=== PATIENT | female | born 1960 | race Caucasian/White ===

== ENCOUNTER 2016-11-06 11:49 | Inpatient (IN) | payer MEDICARE, OTHER ==
[2016-11-06] VITALS (13 sets, daily range): BP systolic 106–151; BP diastolic 75–131; PULSE 58–77; RESP 19–25; O2SAT 88–100
[~2016-11-06] VITALS: Ht 162.6 cm; Wt 83.3 kg
--- NOTE | 2016-11-06 11:57 | ED.REPORT ---
HPI-General Illness Date of Service Nov 06, 2016 ED Provider: Dr. Yost Pt is a 56 y/o female with unknown PMHx presenting to the ED via EMS due to respiratory arrest prior to arrival. The patient and her woke up sometime between 04:00-05:00 today and apparently had a hot flash. Her headed out to smoke and came back up to 5 hours later to find her unresponsive and apneic (the timeline is obtained from medics and drastically different stories may cause it to be inaccurate, another medic reported 10 minutes of downtime). She told her that she was complaining of back pain and may have taken some of her Percocet. They drank heavily last night. Medics noticed no signs of trauma. Upon medics arrival, she was found to be in PEA. CPR was initiated prior medics. She was intubated and treated with epi. After about 15min of CPR there was ROSC. During the intubation, they retrieved food material from the airway. On arrival in the ER, HR 90s, sinus with BP 170/100. Paralysed, intubated. Vital signs have remained stable. No further history is available. Only medical record available indicates a suicide attempt in 2008. Nursing Notes Stated Complaint: ROSC Nursing Notes Reviewed: Yes Scheduled PRN Clonazepam (Clonazepam) 1 Mg Tablet 1 MG PO TID PRN PRN For Anxiety or Agitation Temazepam (Temazepam) 30 Mg Cap 30 MG PO HS PRN PRN Insomnia General Time Seen by MD: 11:56 Chief Complaint Breathing problem Hx Obtained From: Spouse, EMS Unable to Obtain Hx: Patient condition Arrived By: Ambulance Past Medical History Past Medical History Notes: Only medical record indicates a suicide attempt in 2008. Unable to Obtain History Past medical history, Past surgical history, Family history, Smoking history, Social history, Occupation, Ambulatory status Review of Systems Unable to Obtain ROS Patient condition, Intubated Physical Exam Vital Signs Vital Signs Date Time Temp Pulse Resp B/P Pulse Ox O2 Delivery O2 Flow Rate FiO2 11/06/16 13:40 29.9 67 25 133/102 88 Mechanical Ventilator 50 11/06/16 13:09 100 11/06/16 13:05 29.7 69 22 151/91 99 Mechanical Ventilator 11/06/16 12:45 97 11/06/16 12:17 30.0 77 19 151/131 97 Mechanical Ventilator Initial VS: Reviewed, Vital signs abnormal Head / Eyes: Atraumatic, Normocephalic ENT: Mucous membranes moist, Conjunctiva normal, No scleral icterus Extremities: Vascular intact, Neuro intact, No swelling, No tenderness General: Intubated, sedated, and paralyzed No obvious trauma other than royal left by CPR Rectal temp of 30.0 C Neck: Atraumatic, Supple Respiratory / Chest: Breath sounds NL, Breath sounds = bilat, No rales, No rhonchi, No wheezing Abrasion mid-chest from CPR Cardiovascular: Heart rate NL, Regular rhythm, Heart sounds NL, No gallop, No murmurs, No rubs Abdomen: Atraumatic, Soft Bowel Sounds / Distention: Positive: Bowel sounds hypoactive Skin: Atraumatic Skin is cold and diaphoretic Cutting scars on right wrist. Appears to be a lap [place] scar NEURO: Intubated, sedated, and paralyzed Interpretation & Diagnostics Interpretation & Diagnostics: Urinalysis positive for cocaine, marijuana, benzodiazepine Elevated d-dimer likely represents sequelae of CPR prolonged down time hypothermia and possibility of developing DIC. Doubt pulmonary embolism as a source but this has not been definitively ruled out as the initial cause of her cardiac arrest Lab Results Interpretation Result Diagram: 11/06/16 1521 11/06/16 1521 Test 11/06/16 12:25 11/06/16 12:30 11/06/16 12:55 Urine Color Yellow (YELLOW) Urine Appearance Hazy (CLEAR,HAZY) Urine pH 5.5 (5.0-8.0) Urine Specific [place] 1.030 (1.003-1.035) Urine Protein 100mg/dL (NEG,TRACE) Urine Glucose (UA) Negativemg/dL (NEGATIVE) Urine Ketones Negativemg/dL (NEGATIVE) Urine Occult Blood Small (NEGATIVE) Urine Nitrite Negative (NEGATIVE) Urine Bilirubin Negative (NEGATIVE) Urine Urobilinogen Normalmg/dL (NORMAL) Urine Leukocyte Esterase Negative (NEGATIVE) Urine RBC 0-2/hpf (0-2) Urine WBC 0-5/hpf (0-5) Urine Epithelial Cells Occasional/hpf (NONE-MOD) Urine Crystals Amorphous urates (NONE Urine Bacteria Moderate/hpf (NONE-FEW) Urine Hyaline Casts Occasional/lpf (NONE) Urine Granular Casts Occasional (NONE SEEN) Urine Waxy Casts None seen (NONE SEEN) Urine Red Blood Cell Casts None seen (NONE SEEN) Urine White Blood Cell Casts None seen (NONE SEEN) Urine Mucus Present (None Seen) Urine Trichomonas None seen (NONE SEEN) Urine Yeast None (NONE SEEN) Urinalysis Comment None Urine Culture Reflexed Indicated Neutrophils (%) (Auto) 85.0% (40-74) Lymphocytes (%) (Auto) 11.9% (14-46) Monocytes (%) (Auto) 1.2% (4-12) Eosinophils (%) (Auto) 0.4% (0-5) Basophils (%) (Auto) 0.3% (0-3) Pro-B-Type Natriuretic Peptide 214.0pg/mL (0-287) Procalcitonin 0.06ng/mL (0.00-0.08) Salicylates Level < 3.0ug/mL (30-250) Acetaminophen Level < 15.0ug/mL Rx (10-25) Alcohols < 10mg/dL (0-10) Activated Partial Thromboplast Time 28.7sec (22.8-33.0) D-Dimer 56.4mg/L (<0.50) ECG Interpretation ECG Interpretation: Wide-complex atrial fibrillation rate 86 Peaked T waves - will treat for acute hyperkalemia No prior available for comparison Time: 12:39 Interpreted by: ED physician X-Ray Chest Interpretation Chest Xray Interpretation: IMPRESSION: 1. The endotracheal tube is 4 cm above millicent. 2. Mild pulmonary edema. Dictated by: Carolyn Medina M.D. on 11/06/2016 at 12:38 Approved by: Carolyn Medina M.D. on 11/06/2016 at 12:40 View: Portable, 1 view Interpretation / Wet Read by: Interpret - Radiologist Chest Xray Interpretation: IMPRESSION: Tubes and lines as described above. Dictated by: Faustina Panchal MD, PhD on 11/06/2016 at 13:50 Approved by: Faustina Panchal MD, PhD on 11/06/2016 at 13:52 View: Portable, 1 view Interpretation / Wet Read by: Interpret - Radiologist CT Head Interpretation IMPRESSION: 1. No acute intracranial abnormalities. Dictated by: Carolyn Medina M.D. on 11/06/2016 at 12:17 Approved by: Carolyn Medina M.D. on 11/06/2016 at 12:19 Study: Head CT no contrast Interpretation / Wet Read by: Interpret - Radiologist Procedures Central Line Placement Time: 13:06 Procedure Performed by: ED physician (gloved and immediately involved in the procedure), ED resident Consent / Setup / Site Prep: No consent - emergent, Time-out performed, Oxygen administered, Pulse oximeter applied, monitoring coordinator applied, Hand hygiene observed, Standard surgical scrub, Max barrier precaution, Sterile drapes applied, Position Trendelenburg Skin Preparation Agent: Shurclens Procedural Sedation/Analgesia: Sedation: Propofol Side / Location / Ultrasound: Internal jugular right, Ultrasound assisted Catheter / Lumen / Technique: Triple lumen, Seldinger technique, Good blood return, Secured w catheter device Central Line Tip Location: Cath tip good position in the SVC Post-Procedure / Complications: Antibiotic oint applied, Dressing placed, CXR neg for pneumothorax, Condition improved, Tolerated procedure well Re-Eval/Medical Decision Med Decision/Clinical Course Presents after PEA arrest with ROSC. Plans for cooling. Brain scan done on arrival in the ER with no obvious intracranial abnormalities or bleed. Patient was intubated, paralyzed on arrival. Details surrounding her evening and events are unclear. Hypothermia protocol is initiated labs are ordered she is found to be significantly acidotic her EKG shows widened QRS and peak T waves so she is treated for hyperkalemia. Subsequent potassium level is actually only 3.4. Chest x-ray does not show significant infiltrates at this point. She did have a small dose of Narcan with no response in the field. Tylenol aspirin and alcohol levels are all negative. Significantly elevated lactic acid presumably from prolonged down time rather than sepsis. Significant hypothermia with core temperature at 30C on arrival. Initial protocol was actually a warming protocol with to get her to 32. Hypothermia protocols including fluids and antibiotics are initiated. Central line is placed in the emergency department and patient is transferred to the intensive care unit for additional workup Time of Eval: 12:20 Re-Evaluation/Progress Note: Severe hypothermia protocol started. Time of Eval: 13:05 Re-Evaluation/Progress Note: Central line placed for improved access. Consultation : Referral / Consult Name: Osmany Schroeder MD Consulted With: Hospitalist Call Returned at: 13:36 Forest[employer] Extension Specialist: Will see patient, Agrees with eval, Agrees with plan, Accepts admit Note: Discussed case in person. Assisted in central line. Counseled Regarding: Diagnosis, Lab results, Need for admission Discharge & Departure Primary Impression: Cardiac arrest Additional Impressions: Respiratory failure Chronicity: acute Respiratory failure complication: hypoxia Qualified Code : J96.01 - Acute respiratory failure with hypoxia Hypothermia Encounter type: initial encounter Qualified Code: T68.XXXA - Hypothermia, initial encounter Aspiration into airway Encounter type: initial encounter Qualified Code: T17.908A - Unspecified foreign body in respiratory tract, part unspecified causing other injury, initial encounter Acidosis Disposition: ADMITTED TO HOSPITAL Discharge Condition All VS Reviewed: Yes Condition: Critical Crit Care Except Billable Proc Time Spent: 75-104 minutes Services Performed: Patient management by me, Time spent at bedside, Reviewing test results, Reviewing imaging, Discussing patient care, Documentation in record Scribe Attestation Portions of this note were transcribed by Chapincito Turner. I, Dr. Yost personally performed the history, physical exam and medical decision-making; I reviewed and confirmed the accuracy of the information in the transcribed note. Signed by Jay Tang, 11/06/16 - 1200 Elizabeth Yost MD Nov 06, 2016 11:56 CHAPINCITO TURNER Nov 06, 2016 12:01 Prothrombin Time 12.6sec (8.1-12.5) Prothromb Time International Ratio 1.17ratio Activated Partial Thromboplast Time 28.7sec (22.8-33.0) D-Dimer 56.4mg/L (<0.50) Lactic Acid Level 6.4mmol/L (0.4-2.0) ECG Interpretation ECG Interpretation: Wide-complex atrial fibrillation rate 86 Peaked T waves - will treat for acute hyperkalemia No prior available for comparison Time: 12:39 Interpreted by: ED physician X-Ray Chest Interpretation Chest Xray Interpretation: IMPRESSION: 1. The endotracheal tube is 4 cm above millicent. 2. Mild pulmonary edema. Dictated by: Carolyn Medina M.D. on 11/06/2016 at 12:38 Approved by: Carolyn Medina M.D. on 11/06/2016 at 12:40 View: Portable, 1 view Interpretation / Wet Read by: Interpret - Radiologist Chest Xray Interpretation: IMPRESSION: Tubes and lines as described above. Dictated by: Faustina Panchal MD, PhD on 11/06/2016 at 13:50 Approved by: Faustina Panchal MD, PhD on 11/06/2016 at 13:52 View: Portable, 1 view Interpretation / Wet Read by: Interpret - Radiologist CT Head Interpretation IMPRESSION: 1. No acute intracranial abnormalities. Dictated by: Carolyn Medina M.D. on 11/06/2016 at 12:17 Approved by: Carolyn Medina M.D. on 11/06/2016 at 12:19 Study: Head CT no contrast Interpretation / Wet Read by: Interpret - Radiologist Procedures Central Line Placement Time: 13:06 Procedure Performed by: ED physician (gloved and immediately involved in the procedure), ED resident Consent / Setup / Site Prep: No consent - emergent, Time-out performed, Oxygen administered, Pulse oximeter applied, monitoring coordinator applied, Hand hygiene observed, Standard surgical scrub, Max barrier precaution, Sterile drapes applied, Position Trendelenburg Skin Preparation Agent: Shurclens Procedural Sedation/Analgesia: Sedation: Propofol Side / Location / Ultrasound: Internal jugular right, Ultrasound assisted Catheter / Lumen / Technique: Triple lumen, Seldinger technique, Good blood return, Secured w catheter device Central Line Tip Location: Cath tip good position in the SVC Post-Procedure / Complications: Antibiotic oint applied, Dressing placed, CXR neg for pneumothorax, Condition improved, Tolerated procedure well Re-Eval/Medical Decision Time of Eval: 12:20 Re-Evaluation/Progress Note: Severe hypothermia protocol started. Time of Eval: 13:05 Re-Evaluation/Progress Note: Central line placed for improved access. Consultation : Referral / Consult Name: Osmany Schroeder MD Consulted With: Hospitalist Call Returned at: 13:36 Forest[employer] Specialist: Will see patient, Agrees with eval, Agrees with plan, Accepts admit Note: Discussed case in person. Assisted in central line. Counseled Regarding: Diagnosis, Lab results, Need for admission Discharge & Departure Primary Impression: Cardiac arrest Additional Impressions: Respiratory failure Chronicity: acute Respiratory failure complication: hypoxia Qualified Code : J96.01 - Acute respiratory failure with hypoxia Hypothermia Encounter type: initial encounter Qualified Code: T68.XXXA - Hypothermia, initial encounter Disposition: ADMITTED TO HOSPITAL Discharge Condition All VS Reviewed: Yes Condition: Critical Crit Care Except Billable Proc Time Spent: 75-104 minutes Services Performed: Patient management by me, Time spent at bedside, Reviewing test results, Reviewing imaging, Discussing patient care, Documentation in record Scribe Attestation Portions of this note were transcribed by Chapincito Turner. I, Dr. Yost personally performed the history, physical exam and medical decision-making; I reviewed and confirmed the accuracy of the information in the transcribed note. Signed by Jay Tang, 11/06/16 - 1200 Elizabeth Yost MD Nov 06, 2016 11:56 CHAPINCITO TURNER Nov 06, 2016 12:01
[2016-11-06] MEDS ORDERED: 0.9% Sodium Chloride 1,000 ML IV ONE ×3 (12:06→17:20)
[2016-11-06] MEDS ORDERED: Propofol Inj 1,000,000 MCG in IV Premix 1 EACH IV SCH (12:06)
[2016-11-06] MEDS ORDERED: fentaNYL-PF 50 mCg/mL 2 mL Inj IVPUSH ONE (12:10)
[2016-11-06] MEDS ORDERED: fentaNYL 2,500 mCg/250 mL 2,500 MCG in IV Premix 1 EACH IV SCH (12:10)
--- NOTE | 2016-11-06 12:21 | DRSVH ---
PROCEDURE: CT BRAIN WITHOUT CONTRAST ([id number]) INDICATIONS: patient found down TECHNIQUE: Noncontrast 4.5 mm thick angled axial sections acquired from the foramen magnum to the vertex, with c oronal reformats. COMPARISON: None. FINDINGS: Image quality: Excellent. CSF spaces: Basal cisterns are patent. No extra-axial fluid collections. Ventricles are normal in size and shape. Brain: No midline shift. No intracranial masses or hemorrhage. Castillo-white matter interface is norm al. Skull and face: Calvarium and visualized facial bones are intact, without suspicious lesions. Sinuses: Visualized sinuses and mastoids are clear. IMPRESSION: 1. No acute intracranial abnormalities. Dictated by: Carolyn Medina M.D. on 11/06/2016 at 12:17 Approved by: Carolyn Medina M.D. on 11/06/2016 at 12:19
[2016-11-06] MEDS ORDERED: Insulin Human REGular-Omnicell 100 Unit/mL IV ONE (12:40)
[2016-11-06] MEDS ORDERED: Calcium Chloride 10% (Gm) 1 Gm/10 mL Inj IVPUSH PRN (12:40)
--- NOTE | 2016-11-06 12:41 | DRSVH ---
PROCEDURE: X-RAY CHEST ONE VIEW, PORTABLE ([id number]) INDICATIONS: intubation TECHNIQUE: One view of the chest was acquired. COMPARISON: None. FINDINGS: Surgical changes and devices: The endotracheal tube is 4 cm above millicent. Lungs and pleura: Mild perihilar infiltrates suggest pulmonary edema, right greater than left. No pl eural effusions or pneumothorax. Mediastinum: Mediastinal contours appear normal. Heart size is normal. Bones and chest wall: No suspicious bony lesions. Overlying soft tissues appear unremarkable. Dist ended stomach. IMPRESSION: 1. The endotracheal tube is 4 cm above millicent. 2. Mild pulmonary edema. Dictated by: Carolyn Medina M.D. on 11/06/2016 at 12:38 Approved by: Carolyn Medina M.D. on 11/06/2016 at 12:40
[2016-11-06] MEDS ORDERED: Calcium Chl 10% 1 Gm/10 mL Syringe ONE (12:44)
[2016-11-06 12:55] LABS: BASOPHILS % (AUTO) 0.3 % (0-3); EOSINOPHILS % (AUTO) 0.4 % (0-5); MONOCYTES % (AUTO) 1.2 % (4-12); Mean Corpuscular Hemoglobin 29.8 pg (27.0-35.0); Mean Corpuscular Volume 92.7 fL (81-100); Platelet Count 158 bil/L (150-400)
--- NOTE | 2016-11-06 12:55 | ABG ---
DateTimeAnalyzed 12:51:00 -_ pH ____6.996 - 7.350 7.450 pCO2 ___62.4__ -mmHg 35.0 45.0 pO2 141 -mmHg 69.0 116 HCO3- ___14.5__ -mmol/L 22.0 26.0 ABE __-18.4__ -mmol/L -2.0 2.0 tHb ___14.8__ -g/dL O2Hb ___93.6__ -% COHb ____3.5__ -% MetHb ____0.9__ -% sO2 ___97.9__ -% FIO2 __100.0__ -% PEEP ____5.0__ -cmH2O Set_RR ___17.0__ -b/min Drawn By as - Date/Time Notified____ 12:55:00 -_ Spontaneous_RR ___17.0__ -b/min A/C __450.0__ - Oxygen Device 1 VENTILATOR - Notified By ams - Notified Whom dr laursen - B 752 -mmHg tO2 ___19.7__ -Vol% Soto test _Positive -
[2016-11-06 13:17] LABS: APPEARANCE,URINE HAZY (CLEAR,HAZY); COLOR,URINE YELLOW (YELLOW); OCCULT BLOOD,URINE SMALL (NEGATIVE); PH,URINE 5.5 (5.0-8.0); UROBILINOGEN,URINE NORMAL (NORMAL)
[2016-11-06 13:21] LABS: INR 1.17 ratio
[2016-11-06 13:32] LABS: TROPONIN T < 0.010 ug/L (0.0-0.011)
[2016-11-06] MEDS ORDERED: Piperacillin-Tazo 3.375 Gm Inj 3.375 GM in Dextrose 5% Minibag Plus 50 ML IV ONE (13:40)
[2016-11-06 13:41] LABS: Magnesium 3.1 mg/dL (1.6-2.6)
[2016-11-06 13:45] LABS: D-DIMER 56.4 mg/L (<0.50)
[2016-11-06 13:45] LABS: Creatine Kinase 105 U/L (21-215)
--- NOTE | 2016-11-06 13:53 | DRSVH ---
PROCEDURE: X-RAY CHEST ONE VIEW, PORTABLE ([id number]) INDICATIONS: LINE PLACEMENT TECHNIQUE: One view of the chest was acquired. COMPARISON: None. FINDINGS: Surgical changes and devices: Central venous catheter projects to the distal SVC the right IJ approac h. ET tube projects approximately 4 cm superior to millicent. NG tube tip crosses the GE junction. NG tu be side-port is in the distal esophagus. Cholecystectomy clips. Lungs and pleura: No pleural effusions or pneumothorax. Lungs are clear. Mediastinum: Mediastinal contours appear normal. Heart size is normal. Bones and chest wall: No suspicious bony lesions. Overlying soft tissues appear unremarkable. IMPRESSION: Tubes and lines as described above. Dictated by: Faustina Panchal MD, PhD on 11/06/2016 at 13:50 Approved by: Faustina Panchal MD, PhD on 11/06/2016 at 13:52
[2016-11-06] MEDS ORDERED: fentaNYL 2,500 mCg/250 mL 2,500 MCG in IV Premix 1 EACH IV PRN (13:55)
[2016-11-06] MEDS ORDERED: Polyethylene Glycol (PEG) 17 Gm Powder PO PRN (13:55)
[2016-11-06] MEDS ORDERED: Ondansetron 2 mg/mL 2 mL Inj IVPUSH PRN (13:55)
[2016-11-06] MEDS ORDERED: Senna-Docusate 8.6-50 mg Tablet PO PRN (13:55)
--- NOTE | 2016-11-06 14:02 | PCM.PROC ---
Procedure Note Date of Service: Nov 06, 2016 Pre Procedure Diagnosis: Hypothermia with acute hypoxemic respiratory failure Post Procedure Diagnosis: Hypothermia with acute hypoxemic respiratory failure Procedure: Central Venous Catheter (CVC, Central Line) Placement Date: 11/06/2016 Time: 13:15 Indication: Intravenous access Resident: Cassius Campuzano DO Attending: Dr. Priyank GARCIA The patient was placed in a Trendelenburg position appropriate for central line placement based on the vein to be cannulated. The patients right neck was prepped and draped in sterile fashion. Pt was intubated and sedated at time of procedure. A triple lumen 9-[place] Cordis catheter was introduced into the the internal jugular using the Seldinger technique and under ultrasound guidance. The needle tip was visualized in the lumen of the IJ. The catheter was threaded smoothly over the guide wire and appropriate blood return was obtained. The Lumen of the catheter was evacuated of air and flushed with sterile saline. The catheter was then secured in place to the skin and a sterile dressing applied. Attending and Resident was present for the entire procedure. Estimated Blood Loss: 50cc. The patient tolerated the procedure well and there were no complications. CASSIUS CAMPUZANO DO Nov 06, 2016 14:02
[2016-11-06] MEDS ORDERED: RES30 PO (14:20)
[2016-11-06] MEDS ORDERED: KLO1T PO (14:20)
[2016-11-06] MEDS ORDERED: levETIRAcetam Inj 1,500 MG in Dextrose 5% 100 ML IV ONE (14:45)
[2016-11-06 15:40] LABS: Mean Corpuscular Hemoglobin 29.5 pg (27.0-35.0); Mean Corpuscular Volume 90.8 fL (81-100)
--- NOTE | 2016-11-06 15:45 | ABG ---
DateTimeAnalyzed 15:41:00 -_ pH ____7.318 - 7.350 7.450 pCO2 ___24.3__ -mmHg 35.0 45.0 pO2 105 -mmHg 69.0 116 HCO3- ___12.1__ -mmol/L 22.0 26.0 ABE __-12.2__ -mmol/L -2.0 2.0 tHb ___14.1__ -g/dL O2Hb ___95.6__ -% COHb ____2.0__ -% MetHb ____0.9__ -% sO2 ___98.5__ -% FIO2 ___50.0__ -% PRVC 440 - PEEP ____5.0__ -cmH2O Set_RR ___25.0__ -b/min Drawn By jh - Date/Time Notified____ 15:45:00 -_ Spontaneous_RR ___25.0__ -b/min Oxygen Device 1 VENTILATOR - Notified By jh - Notified Whom ken - B 753 -mmHg tO2 ___19.1__ -Vol% Soto test N/A -
[2016-11-06 15:55] LABS: INR 1.12 ratio
[2016-11-06 16:00] LABS: Creatine Kinase 101 U/L (21-215); Magnesium 2.4 mg/dL (1.6-2.6)
[2016-11-06 16:01] LABS: TROPONIN T 0.024 ug/L (0.0-0.011)
[2016-11-06] MEDS ORDERED: Insulin Human REGular Inj 100 UNIT in 0.9% Sodium Chloride-Pha MIX 100 ML IV SCH ×2 (16:17→16:28)
--- NOTE | 2016-11-06 16:17 | PROCED ---
[address] [address] PROCEDURE NOTE PATIENT: MALGORZATA LOO : 1960 MR#: [id number] ADMIT: 11/06/2016 JOB ID: [id number] DATE OF SERVICE: POSTOPERATIVE DIAGNOSIS(ES): PREOPERATIVE DIAGNOSIS(ES): SURGEON: Yg Page MD PROCEDURE: Line placement. INDICATION FOR PROCEDURE: Hypothermic protocol status post cardiopulmonary arrest. PROCEDURE IN DETAIL: The patient is a 56-year-old female, currently under hypothermic protocol in the ICU. I was contacted by the ICU team for placement of arterial line. The patient's left forearm was prepped with ChloraPrep x2 and using sterile gloves, half mask and a sterile field, an ultrasound was used to visualize the left radial artery. The artery did not appear pulsatile, but anatomically was visualized. This is likely due to her hypothermic protocol. Using continuous ultrasound guidance, a 20-gauge angiocatheter was advanced and on initial contact with the artery did not provide a visible flush of blood. The catheter was advanced through the artery, needle was removed and then the catheter was slowly withdrawn until pulsatile blood was obtained. Wire was advanced through the catheter and then the catheter was advanced using the Seldinger technique into the artery with good withdrawal of pulsatile blood. The catheter was then sterilely dressed and secured by IV Therapy who was present during the procedure. Patient tolerated the procedure well without any notable complications.
[2016-11-06] MEDS ORDERED: 0.9% Sodium Chloride 1,000 ML IV SCH (16:25)
[2016-11-06] MEDS ORDERED: 0.9% Sodium Chloride 500 ML IV ONE ×2 (16:25)
[2016-11-06] MEDS ORDERED: Piperacillin-Tazo 3.375 Gm Inj 3.375 GM in Dextrose 5% Minibag Plus 50 ML IV SCH (16:30)
[2016-11-06] MEDS: Pantoprazole 4 mg/mL 10 mL Inj IVPUSH SCH (16:30)
--- NOTE | 2016-11-06 16:32 | CONS ---
[address] [address] CONSULTATION REPORT PATIENT: MALGORZATA LOO : 1960 MR#: [id number] ADMIT: 11/06/2016 JOB ID: [id number] DATE OF SERVICE: 11/06/2016 REQUESTING PHYSICIAN: Osmany Schroeder MD. REASON FOR CONSULTATION: Status post cardiac arrest. HISTORY OF PRESENT ILLNESS: The patient is a 56-year-old, female who was found by her with maybe agonal respirations in the garage this morning about 8 or 9 o'clock. He states he last saw her at about 4 o'clock in the morning. Says she told him she was unable to sleep and was going to the garage to smoke. He found her with gasping, slow respiratory rate at some time later that morning, maybe 8 or 9 o'clock. Called 911. He states he was told to do cardiac compressions in the meantime. Paramedics arrived. She was intubated, brought to the emergency department, found to be temperature of about 30 degrees. She had received brief CPR with the paramedics. The paramedics indicated she was apneic. Possibly 10 minutes of down time. On cutting table operator arrival, she was in PEA. Paramedics noted no signs of trauma. There was history of heavy drinking the night before. CPR lasted for about 15 minutes until reperfusion. Intubated, sedated, paralyzed en route. Given Narcan. Food material was seen in the airway. No other history available. states she suffers from back pain. Believes she may have taken a Percocet from a friend. PAST MEDICAL HISTORY: Past medical records indicate a suicide attempt in 2008. Unable to obtain any other history. REVIEW OF SYSTEMS: Unable to obtain. PHYSICAL EXAMINATION: Temperature upon arrival in the emergency department was 29.9 with a pulse of 67. She was on mechanical ventilation. Head was atraumatic. Normocephalic. No scleral icterus. Extremities: No tenderness. Chest showed good breath sounds bilaterally. Lung scott are clear. Heart rate regular rhythm. Abdomen is soft. Extremities were described as cold and mottled initially. Hesitation scars on both wrists. The patient was stabilized. Stat CT scan of the head showed no evidence of trauma. It was otherwise normal. Blood pressure was 151/130, pulse 77, temp was 30. She was therefore transported to the ICU. There, mechanical ventilation was employed. There was some generalized myoclonic activity. Some examiners thought she might have responded appropriately. However, it was felt that given the significant unknown down time and the probability of worsening cerebral edema, that hypothermic protocol be instituted with starting time being the documented temperature of 29 in the ED at 10:15. Pupils about 3 mm. Seemed reactive. Twitching of the jaw. There was also some twitching of her right hand and right foot. Became more generalized to involve her entire body. Chest was clear with good breath sounds bilaterally. Heart: Slightly irregular. Heart tones were normal. Abdomen is soft. Nondistended. Abdomen was quiet. Extremities: Unable to feel peripheral pulses. Hands and feet are cold. Mottling is less. Tox screen done in the emergency department showed a urinalysis positive for cocaine, marijuana, benzodiazepines. There was some question whether she received benzodiazepines from the paramedics though. A subsequently obtained drug list to which I am not privy indicated that she takes clonazepam. Also takes temazepam. No other apparent medications available that she takes. LABORATORY DATA: Shows a white count of 24,200 with a marked neutrophilia. No left shift. Hemoglobin 15.1. Platelet count 158,000. Sodium 142, potassium 3.4, chloride 103, CO2 is 12, BUN 32, creatinine 1.66, glucose 195, lactic acid was 6.4, calcium 8.6 with an albumin of 4.3. Phosphorus 11, magnesium 3.1. AST elevated at 1003. ALT elevated to 788. Alk phos normal at 137. Total CK is only 105. INR is 1.17. PTT is 28.7 seconds. Initial arterial blood gases showed a pO2 of 141 on FiO2 of 100%, PEEP of 5, respiratory rate 17 and a tidal volume of 450. CO2 was 62, pH was 699. Tox screen was negative for salicylates, acetaminophen and alcohol. DIAGNOSTIC STUDIES: Chest x-ray shows the central venous catheter in good position. Endotracheal tube was noted 4 cm above the main millicent and it was advanced 1 or 2 cm. NG tube across the GE junction. Lungs are clear. Mediastinal silhouette clear as is cardiac silhouette. CT of the brain shows no extra-axial fluid collections. Ventricles normal size and shape. No midline shift. No intracranial masses or hemorrhage. The calvarium and visualized facial bones intact. ASSESSMENT: 1. Cardiopulmonary arrest. 2. Probable aspiration as food particles were found in the airway. She has been intubated. Currently on mechanical ventilation. Because of the significant risk of hypoxemic or anoxic encephalopathy, will continue hypothermia protocol timing the onset at 10:15 a.m. 3. Apparent myoclonic activity. There is some discussion about whether this represents myoclonus, seizure disorder or shivering. Shivering should not be present at a temperature of 31. It is a generalized phenomenon involving the muscles of the jaw and face. Very concerned about myoclonic activity. Will get a stat EEG. In the meantime, she has been loaded with Keppra, given Ativan, and she will be sedated for continued hypothermia treatment. 4. Pulseless electrical activity (PEA) arrest. Down at least 10 minutes though this could be as long as 6 hours. CPR with return of was about 15 minutes. Severe metabolic and respiratory acidoses. She is being hyperventilated. I think we will restrict that to some extent as with normal lungs she should blow off the CO2 relatively rapidly. Do not want to come compromise any cerebral blood flow. 5. Aspiration pneumonitis. Cover with Zosyn. PLAN: 1. Mechanical ventilation. 2. IV Ativan and fentanyl for hypothermia protocol. 3. Stat EEG. 4. Vigileo monitoring. 5. IV Zosyn. 6. IV Keppra loading dose of 1500 mg IV with 1000 q.12. 7. Serial lytes and lactates as per hypothermia protocol. 8. Hypothermia protocol. TIME SPENT: Time spent so far is 2 hours and 43 minutes.
[2016-11-06] MEDS ORDERED: Sodium Chloride LOK Flush 10 mL Syringe IVFLUSH PRN ×2 (17:15)
[2016-11-06] MEDS ORDERED: KCl 40 mEq/100 mL Premix (K 3 - 3.7 & Creat < 2) IV ONE (17:20)
--- NOTE | 2016-11-06 17:34 | PCM.HPMED ---
Subjective Date of Service Nov 06, 2016 Primary Provider: Admitting Physician: Osmany Schroeder MD Primary Care Physician: Nopcp Attending Physician: Osmany Schroeder MD Chief Complaint: Respiratory arrest History of Present Illness: At the time of this H&P patient is intubated and sedated and cannot provide any history. History per the ED note by Dr. Yost: Pt is a 56 y/o female with unknown PMHx presenting to the ED via EMS due to respiratory arrest prior to arrival. The patient and her woke up sometime between 04:00-05:00 today and apparently had a hot flash. Her headed out to smoke and came back up to 5 hours later to find her unresponsive and apneic (the timeline is obtained from medics and drastically different stories may cause it to be inaccurate, another medic reported 10 minutes of downtime). She told her that she was complaining of back pain and may have taken some of her Percocet. They drank heavily last night. Medics noticed no signs of trauma. Upon medics arrival, she was exhibiting PEA. CPR was initiated prior to medics arrival and was sustained for about 15 minutes until reperfusion. She was then intubated, sedated, and paralyzed on route at about 11 :30 as well as given Narcan. During the intubation, they retrieved food material from the airway. Vital signs have remained stable. No further history is available. Only medical record available indicates a suicide attempt in 2008. Review of Systems: No review of systems could be obtained as patient is intubated and sedated in the ICU. Allergies Coded Allergies: No Known Allergies (Unverified , 11/08/16) Home Medications Per medication bottles: Atenolol 50 mg BID Clonazepam 1 mg TID prn anxiety PMH Anxiety Hypertension Surgical History Unknown as patient intubated and sedated and cannot answer Family History Unknown as patient intubated and sedated and cannot answer Social History Hx Alcohol Use: Yes Hx Substance Use: Yes Smoking Status: Current Every Day Smoker (Uncertain of the amount) Living Arrangement: with Family Exam Vital Signs Vital Sign - Last Date Time Temp Pulse Resp B/P Pulse Ox O2 Delivery O2 Flow Rate FiO2 11/06/16 14:45 87 113/88 98 50 11/06/16 13:40 29.9 25 Mechanical Ventilator Exam Patient intubated and sedated in the ICU; cooling pads in place on the thorax and lower extremities Pupils equal at 3 mm and unreactive to light; patient does blink after having her eyes opened ET tube in place and no oral thrush appreciated in the oral cavity; mucus membranes appear dry Neck supple without thyromegaly, no lymphadenopathy, no JVD appreciated; Right IJ in place Regular rate and rhythm without murmur Coarse breath sounds heard throughout the lung scott anteriorly Decreased bowel tones with nondistended abdomen, nontender, soft Radial pulses normal and equivalent bilaterally, dorsalis pedis pulses difficult to appreciate No clubbing or edema; left radial arterial line in place Sheth catheter in place No apparent wounds or skin ulcerations Neurological status could not be established as patient intubated and sedated Lab and Diagnostics Result Diagram: 11/06/16 1230 11/06/16 1230 X-Rays, CTs and MRIs PROCEDURE: X-RAY CHEST ONE VIEW, PORTABLE IMPRESSION: 1. The endotracheal tube is 4 cm above millicent. 2. Mild pulmonary edema. Dictated by: Carolyn Medina M.D. on 11/06/2016 at 12:38 PROCEDURE: CT BRAIN WITHOUT CONTRAST IMPRESSION: 1. No acute intracranial abnormalities. Dictated by: Carolyn Medina M.D. on 11/06/2016 at 12:17 Assessment & Plan Patient is a 56 year old female with a history of hypertension and anxiety who presented to [facility] in respiratory then cardiac arrest. She is admitted to the ICU for hypothermia protocol. 1. Cardiac arrest, acute, present on admission. - Likely secondary to respiratory failure but the exact events leading up to this are unknown. - Hypothermia protocol initiated in the ED at 1015 on 11/06/16. - Follow labs (CBC, CMP, CK-MB) as indicated by hypothermia protocol. - Electrolyte repletion as indicated by hypothermia protocol. - IV fluids as indicated by hypothermia protocol. - Nimbex available as needed to prevent shivering and accelerated warming. - Vigileo available for cardiac monitoring. - Non-DKA insulin drip ordered to go along with hypothermia protocol. 2. Acute hypoxic respiratory failure, present on admission. - Patient requiring mechanical ventilation. - Fentanyl and propofol for sedation. Titrate as needed to maintain adequate comfort during hypothermia protocol. - Dr. Norris of pulmonology has been consulted for ventilator management. - ABG PRN for vent adjustments. 3. Presume acute aspiration pneumonia, present on admission. - Food particles found when patient intubated. - Zosyn started in ED and will continue at this time. - Nasal MRSA screen ordered and pending. 4. Possible seizure activity, acute, present on admission. - Possibly secondary to anoxic brain injury. - EEG ordered and pending. - Lorazepam drip initiated. - Keppra loading dose given. 5. Possible stunned myocardium, acute, present on admission. - Secondary to cardiac arrest and resuscitation efforts. - Echo ordered and pending for further evaluation. - Dobutamine drip to be started for inotropic support. 6. Possible lower GI bleed, acute, present on admission. - Patient passed guaiac positive stool with tint of blood in CCU. - Consider ischemic colitis secondary to hypoperfusion. - Will hold DVT prophylaxis at this time. - Protonix 40 mg IV BID. 7. Elevated transaminases, acute, present on admission. - Possibly secondary to shock liver related to hypoperfusion. May be a component of congestive hepatopathy secondary to stunned myocardium. - Continue to monitor CMP. 8. Acute kidney injury, present on admission. - Presume normal baseline. - Likely secondary to fluid depletion and possibly also hypoperfusion. - IV hydration ongoing per hypothermia protocol. - Continue to monitor BMP. 9. Alcohol dependence, chronic. - Reported significant alcohol use yesterday, 11/05/16. Alcohol level negative in ED. Presumed chronic alcohol use. - Lorazepam drip initiated. - Monitoring for withdrawal will be difficult as patient undergoing hypothermia protocol. 10. Anxiety with benzodiazepine dependence, chronic. - Home medication clonazepam 1 mg TID PRN. - Lorazepam drip initiated for management of seizure-like activity. 11. Polysubstance abuse, presume chronic. - Cocaine and marijuana positive urine tox. - Frequency of use unknown. 12. Hypertension, chronic, presume stable. - Home medication includes atenolol 50 mg BID. - Patient currently more hypotensive. Will hold home medication. - Antiemetic available PRN. - Bowel regimen available PRN. Patient admitted under inpatient status with expected length of stay greater than 2 midnights for severity of present symptoms, complexities of treatment plan and risk for adverse events. PCP Nadja Danielle MD GI Prophylaxis: Proton Pump Inhibitor VTE Prophylaxis: Sub-Q Enoxaparin, SCDs Resuscitation Status: CPR: Attempt Resuscitation Time spent Approximately 45 minutes of direct critical care time was provided for initial care and stabilization of this patient. . Attending Statement The patient was seen and examined together with Dr. Del Cid on 11/06/2016 and I agree with the history, exam and plan as outlined in the note above. . copies to: Nadja Danielle MD, Jennifer E DO Nov 06, 2016 15:40 Osmany Schroeder MD Nov 09, 2016 19:04
[2016-11-06] MEDS: LORazepam 100 mg/100 mL NS 100 MG in IV Premix 100 EACH IV SCH (17:36)
[2016-11-06] MEDS: Chlorhexidine 0.12% 15 mL Oral Solution MT SCH ×2 (17:36→19:47)
[2016-11-06] MEDS ORDERED: Cisatracurium Inj 200,000 MCG in 0.9% Sodium Chloride-Pha MIX 100 ML IV SCH (18:21)
[2016-11-06] MEDS ORDERED: 0.9% Sodium Chloride (Chilled) 1,000 ML ONE (18:25)
--- NOTE | 2016-11-06 19:12 | NUR ---
Admit: Pt admitted after being found down for unknown length of time at home. Hypothermia protocol started in ED, at 1320 temp 29.7, pt below goal from time cooling pads placed per report. Arctic Sun machine set to slowly warm pt to temp of 33.0, pt above goal since 1630. Passive cooling measures in effect, ice packs/fan/no blankets, and ineffective. Cooled LR hung per Dr Schroeder at 1815, temp currently 35.1. Pt has been intermittently awake and following commands, Ativan IV push given for possible seizure activity, Ativan gtt ordered but not hung per MD orders. EEG obtained and then Ativan hung after EEG completed. Pt started shivering, Nimbex ordered, unable to adequately sedate pt with Ativan, Propofol hung at change of shift, Nimbex hung immediately after. at bedside, updated on plan of care. Vigileo monitor in place, L art line, R triple lumen IJ line. Fentanyl, Ativan, and Propofol for sedation. Q2h turn, heels floated, care ongoing.
--- NOTE | 2016-11-06 19:15 | DRSVH ---
[facility] [address] [place] [address] Echocardiogram Report Name: MALGORZATA LOO Date: 11/06/2016 Height: 64 in Hospital Exam Location: [facility] Gender: Female : 1960 Age: 56 yrs BP: 113/79 mmHg Reason For Study: PEA ARREST History: ETOH, smoker Ordering Physician: [facility]PITAL[facility] Performed By: Rylee Quick Interpretation Summary Normal sinus rhythm. Wide QRS complexes. Normal LV size; mild concentric LVH. There is mid-anterior, distal anterior hypokinesis and evidence of septal dyssynchrony. Otherwise normal wall motion where seen. EF is 40-45%. Normal diastolic dysfunction. Normal chamber sizes. Mitral valve leaflets are normal. There is trace mitral regurgitation. Tricuspid valve leaflets are normal; there is mild-moderate associated TR. Estimated PASP is 26 mm Hg assuming RA pressure of 5 mm Hg. No prior study available for comparison. Procedure: A two-dimensional transthoracic echocardiogram with color flow and Doppler was performed. The study quality was technically adequate. There is no prior echocardiogram noted for this patient. The patient is intubated during exam. The patient was in normal sinus rhythm during the exam. Wide QRS Complexes. Left Ventricle: Left ventricular wall thickness is mildly increased. The left ventricular cavity is small. The ejection fraction is estimated to be 40 -45%. Assessment of diastolic parameters indicates normal left ventricular diastolic function and normal filling pressures. Right Ventricle: The right ventricle is normal size. Right ventricular systolic function is mildly reduced. Atria: Both atria are normal in size. There is no Doppler evidence for an interatrial shunt. Mitral Valve: The mitral valve is normal in structure and function. There is mild mitral regurgitation. Aortic Valve: The aortic valve is normal in structure and function. No aortic regurgitation is present. Tricuspid Valve: There is mild to moderate tricuspid regurgitation. Right ventricular systolic pressure is estimated to be 22 mmHg plus the clinically estimated CVP which cannot be estimated on this exam. Pulmonic Valve: The pulmonic valve is not well seen, but is grossly normal. There is a trace or physiologic amount of pulmonic regurgitation. Great Vessels: The aortic root is normal size. The ascending aorta is at the upper limits of normal in size. The IVC has a measurement of 20 mm. Inspiratory collapse cannot be assessed because of mechanical ventilation, thus CVP cannot be estimated.. Pericardium/ Pleura There is no pericardial effusion. There is a trivial right-sided pleural effusion. MMode/2D Measurements & Calculations LVIDd: 3.9 cm LA A2 area: 15.8 cm RA long axis LVOT diam: 2.1 cm LVIDs: 3.0 cm Ao root diam FS: 22.1 % LA A4 area: 23.3 cm RA area: 17.6 cm EPSS: 0.43 cm LA length (vol) RA vol: 48.9 ml asc Aorta Diam IVSd: 1.3 cm LVPWd: 1.2 cm LA vol: 57.0 ml IVC diam: 2.0 cm RVD1 (basal) TAPSE: 1.5 cm Doppler Measurements & Calculations Ao V2 max MV E max angel MV E/A: 1.1 TR max angel : 104.7 cm/sec : 48.7 cm/sec Med Peak E' Angel : 235.4 cm/sec Ao max PG MV A max angel TR max PG : 4.4 mmHg : 43.0 cm/sec E/E' med: 7.1 : 22.2 mmHg Ao mean PG MV P1/2t: 52.5 msec MV A dur: 0.11 sec PA V2 max : 56.1 cm/sec LVOT Max Angel PA mean PG : 84.2 cm/sec : 0.64 mmHg RITA(I,D): 3.6 cm PA Accel Time sev ratio: 1.0 : 0.14 sec MV dec time MV P1/2t max angel Ao V2 mean LV V1 max PG : 0.18 sec : 70.1 cm/sec MVA(P1/2t): 4.2 cm2 Ao V2 VTI: 16.6 cm LV V1 VTI: 17.3 cm RITA(V,D): 2.8 cm2 PA V2 mean : 37.6 cm/sec Reading Physician:07:15 PM
[2016-11-06] MEDS: Piperacillin-Tazo 3.375 Gm Inj 3.375 GM in Dextrose 5% Minibag Plus 50 ML IV SCH (19:46)
[2016-11-06] MEDS: Cisatracurium 200,000 mCg/100 mL NS IV SCH ×2 (19:47)
[2016-11-06] MEDS: Propofol Inj 1,000,000 MCG in IV Premix 1 EACH IV PRN (19:47)
[2016-11-06] MEDS ORDERED: Famotidine Inj 20 MG in IV Premix 1 EACH IV SCH (20:30)
--- NOTE | 2016-11-06 21:36 | ABG ---
DateTimeAnalyzed 21:28:35 -_ pH ____7.341 - pCO2 ___21.8__ -mmHg pO2 162 -mmHg HCO3- ___11.8__ -mmol/L ABE __-12.5__ -mmol/L tHb ___13.8__ -g/dL O2Hb ___98.7__ -% COHb ____0.7__ -% MetHb ____0.3__ -% sO2 ___99.7__ -% FIO2 ___50.0__ -% PRVC 400 - PEEP ____5.0__ -cmH2O Set_RR 25 -b/min Drawn By RB - Date/Time Notified____ 21:35:00 -_ Spontaneous_RR 23 -b/min Oxygen Device 1 VENTILATOR - Notified By RB - B 756 -mmHg K+ ____4.0__ -mmol/L tO2 ___19.5__ -Vol% Soto test N/A -
--- NOTE | 2016-11-06 21:43 | PROCED ---
[address] [address] EEG PATIENT: MALGORZATA LOO : 1960 MR#: [id number] ADMIT: 11/06/2016 JOB ID: [id number] DATE: 11/06/2016 HISTORY: The patient is a 56-year-old woman with a history of respiratory arrest noted to have intermittent body shivering and quivering. TECHNICAL DESCRIPTION: This digital EEG was recorded using 25 scalp and ear, and two EKG electrodes. It was reviewed in bipolar and referential montages following reformatting in the 10-[employer]de [employer] System. During the recording, the patient was noted to be lethargic. This electroencephalogram was limited by abundant myogenic and movement artifact almost constant at times, however, brief epics were visualized of background activity which was approximately 8.5 hertz, 20-50 microvolts and was noted to be at least partially responsive to eye opening bilaterally. The rest of the background was composed of low voltage fast frequencies. There were no seizures seen. There were no focal, lateralized, or epileptiform discharges noted. It should be noted though that this is a limited study due to abundant nearly continuous myogenic and movement artifact. The study was performed off sedation. Hyperventilation was not performed. Photic stimulation from 1-30 hertz did not elicit any photic driving response. During a brief portion of this recording, symmetrical appearing sleep spindles were noted suggestive of stage 2 of sleep. Due to the abundant myogenic and movement artifact, vertex waves heralding stage 1 of sleep were not noted. The EKG rhythm strip revealed a heart rate of 60 to 80 beats per minute with what appeared to be a wide QRS complex. If clinically indicated, a 12-lead EKG may be helpful. Review of this electroencephalogram reveals no evidence of focal, lateralized, or epileptiform discharges. No seizures were seen. IMPRESSION: This EEG performed in the lethargic state is abnormal. It is limited by abundant myogenic and movement artifact and the single lead electrocardiogram demonstrating what appears to be a wide QRS complex is abnormal. If clinically indicated, recommend obtaining a 12-lead electrocardiogram. Clinical correlation is advised. [facility]
[2016-11-06 21:44] LABS: Mean Corpuscular Volume 88.7 fL (81-100)
[2016-11-06 22:06] LABS: INR 1.12 ratio
[2016-11-06 22:21] LABS: Creatine Kinase 97 U/L (21-215); Magnesium 1.8 mg/dL (1.6-2.6)
[2016-11-06 22:25] LABS: TROPONIN T 0.052 ug/L (0.0-0.011)
[2016-11-06] MEDS ORDERED: Sodium Bicarb 8.4% Inj 150 MEQ in Dextrose 5% 1,000 ML IV PRN (23:45)
[2016-11-06] MEDS: Dextrose 5% 0.45% NaCl 1,000 ML IV SCH (23:46)
[2016-11-07] VITALS (10 sets, daily range): BP systolic 76–124; BP diastolic 50–65; PULSE 48–111; RESP 22–23; O2SAT 95–100
[2016-11-07] MEDS: Chlorhexidine 0.12% 15 mL Oral Solution MT SCH ×6 (00:28→20:46)
[2016-11-07] MEDS: Propofol Inj 1,000,000 MCG in IV Premix 1 EACH IV PRN ×2 (00:32→17:50)
--- NOTE | 2016-11-07 03:36 | ABG ---
DateTimeAnalyzed 03:31:36 -_ pH ____7.327 - pCO2 ___24.4__ -mmHg pO2 102 -mmHg HCO3- ___12.8__ -mmol/L ABE __-12.0__ -mmol/L tHb ___11.9__ -g/dL O2Hb ___97.6__ -% COHb ____0.6__ -% MetHb ____0.3__ -% sO2 ___98.5__ -% FIO2 ___35.0__ -% PRVC 400 - PEEP ____5.0__ -cmH2O Set_RR 25 -b/min Drawn By RB - Date/Time Notified____ 03:36:00 -_ Spontaneous_RR 23 -b/min Oxygen Device 1 VENTILATOR - Notified By RB - Notified Whom ROB R, RN - B 757 -mmHg K+ ____3.1__ -mmol/L tO2 ___16.5__ -Vol% Soto test N/A -
[2016-11-07 03:46] LABS: Mean Corpuscular Hemoglobin 29.7 pg (27.0-35.0); Mean Corpuscular Volume 88.3 fL (81-100)
[2016-11-07 04:05] LABS: INR 1.16 ratio
[2016-11-07] MEDS: Norepinephrine 8,000 mCg/250 mL D5W Premix IV SCH ×2 (04:28→08:17)
[2016-11-07 04:47] LABS: Magnesium 1.5 mg/dL (1.6-2.6)
[2016-11-07 04:48] LABS: TROPONIN T 0.03 ug/L (0.0-0.011)
[2016-11-07] MEDS: DOBUTamine 500 mg/250 D5W 500,000 MCG in IV Premix 1 EACH IV SCH ×2 (05:10→18:43)
[2016-11-07] MEDS ORDERED: Sodium Bicarb (50 mEq) 8.4% 1 mEq/mL 50 mL Syringe IVPUSH ONE (05:45)
[2016-11-07] MEDS ORDERED: Mag Sulf 4 Gm/100 mL IV Premix (Mag < 1.6 & Creat < 2) IV ONE (05:50)
[2016-11-07] MEDS ORDERED: KCl 40 mEq/100 mL Premix (K 3 - 3.7 & Creat < 2) IV ONE (05:50)
[2016-11-07] MEDS ORDERED: levETIRAcetam Inj 1,000 MG in IV Premix 1 EACH IV ONE (06:15)
--- NOTE | 2016-11-07 07:47 | NUR ---
Hypothermia protocol/Seizure like activity Pt remains on hypothermia throughout night. Incontinent of liquid stool x 2. FMS placed. Hypotensive. Orders from MD to start Dobutamine gtt, and bicarb gtt for abnormal ABGs. Dextrose source ordered to replace NS as maintenance fluid as pt CBG 60s-130s. Thermostat saucedo output only 700. Potassium and MG replaced per protocol. MD notified of low Ca, and deferred to day shift to replace. LA came back elevated. MD ordered q2h checks with no intervention at this time. ~0430 BIS monitor showed >90s despite increase sedation of Ativan, Propofol, and Fentanyl. Pt temp was 32.0 which is below shivering level. Call to MD who ordered dose of Keppra which was given IV. Next shift notified of above. Care ongoing
[2016-11-07] MEDS ORDERED: Calcium GLUCO 10% (Gm) Inj 1 GM in Dextrose 5% 100 ML IV ONE (08:05)
[2016-11-07] MEDS ORDERED: Albumin 25% 50 GM in IV Premix 1 EACH IV ONE (08:10)
[2016-11-07] MEDS: Pantoprazole 4 mg/mL 10 mL Inj IVPUSH SCH ×2 (08:24→15:49)
[2016-11-07] MEDS: Piperacillin-Tazo 3.375 Gm Inj 3.375 GM in Dextrose 5% Minibag Plus 50 ML IV SCH ×2 (08:30→20:46)
[2016-11-07] MEDS: Heparin 25K Unit/500mL 0.45 NS 25,000 UNIT in IV Premix 1 EACH IV SCH (08:51)
[2016-11-07] MEDS: Lactated Ringer's 1,000 ML IV SCH ×2 (09:21→10:38)
[2016-11-07] MEDS: Cisatracurium 200,000 mCg/100 mL NS IV SCH ×4 (09:29→19:10)
[2016-11-07] MEDS ORDERED: levETIRAcetam Inj 1,000 MG in IV Premix 1 EACH IV SCH (09:52)
[2016-11-07 09:55] LABS: Mean Corpuscular Hemoglobin 29.8 pg (27.0-35.0); Mean Corpuscular Volume 89.1 fL (81-100)
[2016-11-07 10:16] LABS: INR 1.25 ratio
[2016-11-07 10:32] LABS: TROPONIN T 0.023 ug/L (0.0-0.011)
[2016-11-07] MEDS: Dextrose 5% 0.45% NaCl 1,000 ML IV SCH (10:36)
[2016-11-07 10:46] LABS: Magnesium 2.8 mg/dL (1.6-2.6)
[2016-11-07] MEDS ORDERED: Sodium Phosphate Inj 20 MEQ in Dextrose 5% 250 ML IV ONE (10:55)
--- NOTE | 2016-11-07 11:14 | NUR ---
NUTRITION ASSESSMENT: ASSESS:56 YO female presented to the ED via EMS due to respiratory arrest prior to arrival, intubated in the field after being found down for an unknown period of time, likely several hours, exhibiting PEA. Hypothermia protocol in effect; rewarming began at 1000. She is receiving fluids and pressor support. Nimbex available as needed to prevent shivering and accelerated warming. Apparently particles of food were found during intubation; aspiration pneumonia likely. Seizure activity appears to be occurring; EEG abnormal. Other issues include possible stunned myocardium, possible lower GI bleed, possible shock liver, polysubstance abuse, anxiety with benzo dependence. PMHx:Anxiety, HTN, polysubstance abuse. DIET:NPO. LABS: Chloride 113, CO2 16, Glu 146, Lactic Acid 3.4, Ca 6.7, Mg 2.8, AST 265, ALT 326, Alb 2.8. MEDICATIONS: Dobutamine, norepi, keppra, ativan, insulin, fentanyl. Propofol rate currently 13.5 ml / hr, providing 356 lipid kcal. NUTRITION FOCUSED PHYSICAL ASSESSMENT: GI symptoms / stool: Incontinent of stool; FMS placed.Luis Alfredo: None documented. Skin Integrity: No issues as yet documented. ANTHROPOMETRICS: Current Wt: 75.0 kgBMI: 28.0 kg/m2. IBW: 54.5 kg (137.5% IBW) ESTIMATED NEEDS (VENT): Calories: 1500 - 1875 kcal (20 - 25 kcal / kg BW) Protein: 113 - 135 g protein (1.5 - 1.8 g / kg BW) Fluid: Approx. 2250 mL (30 mL / kg BW) NUTRITION DIAGNOSIS: 1) Inadequate oral intake related to inability to consume sufficient energy, as evidenced by NPO / vent status. INTERVENTION: 1) Once rewarming completed, recommend initiate enteral feeding. Recommend Jevity 1.5 at 10 ml/hr x 12 hr. Once tolerance established, recommend advance 5 ml every 4 hr. to goal rate 45 ml/hr, which would provide 1485 kcal (1841 kcal with propofol), 63 g protein. Will add 5 packets ProSource per day to meet 100% protein requirements. 2) Unsigned orders in chart for MD authorization. MONITOR/EVALUATE: NPO / vent status, orders for nutrition support, labs, GI/nutrition status. Follow up per high nutrition risk guidelines.
[2016-11-07] MEDS ORDERED: LEVETIRACETAM IV ONE (11:35)
[2016-11-07] MEDS ORDERED: SODIUM CHLORIDE 0.9% IV ONE (11:35)
[2016-11-07] MEDS: NACL IV SCH ×2 (11:38→18:17)
[2016-11-07] MEDS: SODIUM BICARB IV SCH ×2 (11:38→18:17)
[2016-11-07] MEDS: DEXTROSE IV SCH ×2 (11:38→18:17)
--- NOTE | 2016-11-07 13:44 | DRSVH ---
PROCEDURE: X-RAY CHEST ONE VIEW, PORTABLE ([id number]) INDICATIONS: acute respiratory failure TECHNIQUE: One view of the chest was acquired. COMPARISON: [facility], CR, XR CHEST 1VW (PORTABLE), 11/06/2016, 13:24. FINDINGS: Surgical changes and devices: Stable position of ETT, nasogastric tube and right IJ CVL Lungs and pleura: Interval increase in diffuse, widespread bilateral interstitial and airspace opacit ies involving the right hilum and left lung base. Mediastinum: Mediastinal contours appear normal. Heart size is normal. Bones and chest wall: No suspicious bony lesions. Overlying soft tissues appear unremarkable. IMPRESSION: Worsening pulmonary edema and/or diffuse bilateral pneumonia. Dictated by: Kei Glynn RRA Interpreted: Faustina Panchal MD on 11/07/2016 at 13:43 Transcribed by: GUILHERME on 11/07/2016 at 13:43 Approved by: Faustina Panchal MD, PhD on 11/07/2016 at 16:53
[2016-11-07 15:24] LABS: Mean Corpuscular Hemoglobin 29.8 pg (27.0-35.0)
[2016-11-07 15:25] LABS: TROPONIN T 0.024 ug/L (0.0-0.011)
[2016-11-07 15:37] LABS: Magnesium 2.3 mg/dL (1.6-2.6)
[2016-11-07] MEDS: LORazepam 100 mg/100 mL NS 100 MG in IV Premix 100 EACH IV SCH (15:46)
--- NOTE | 2016-11-07 16:47 | NUR ---
Social Work: Screen D: Per EMR review, pt is a 56 year old female admitted for post cardiac arrest. Pt insurance listed as other commercial. PCP is not listed. NOK is pt's friend Kamila Shelton. Advanced directives not on file- pt currently unresponsive and not appropriate for info. Readmit score is moderate, 3/8. Pt resides in [place] with family. She has a history of polysubstance abuse including ETOH, JULISSA, THC and BZO. Pt was brought to ED after being found unresponsive, for an unknown period of time. Pt is currently vented and sedated with hypothermia protocol in place- rewarming started at 1000. A: Pt who was previously I P: Evolving; HAND ROLLER ENGRAVER to follow pt's clinical course closely to determine discharge needs. HAND ROLLER ENGRAVER to follow up with pt re: CD assessment when pt is appropriate. JOSE Morales
--- NOTE | 2016-11-07 18:10 | PCM.PNMED ---
Subjective Date of Service Nov 07, 2016 Subjective overnight: Patient remained on cooling protocol overnight with no acute events otherwise noted Today: Rewarming began at 10 AM. Patient initially rewarmed to quickly, this was adjusted and corrected for. Cardiac index continually monitored patient was fluid responsive. Patient remains on potassium and mag repletion protocol in addition to cooling. Exam Vital Signs Vital Sign - Last Date Time Temp Pulse Resp B/P Pulse Ox O2 Delivery O2 Flow Rate FiO2 11/07/16 00:35 52 78/56 100 35 11/07/16 00:35 Ventilator 11/07/16 00:35 32.7 23 Intake and Output 11/06/16 11/06/16 11/07/16 Cumulative From/Thru 15:00 23:00 07:00 11/06/16 12:31 - 11/06/16 19:12 Intake Total 2153 ml 2153 ml Output Total 80 ml 800 ml 880 ml Balance -80 ml 1353 ml 1273 ml Intake IV Total 2153 ml 2153 ml Output Urine Total 80 ml 800 ml 880 ml # Bowel Movements 1 1 Exam Gen.: Patient intubated and sedated in the ICU; cooling pads in place on the thorax and lower extremities Eyes: Pupils equal at 2 mm and sluggish to light, anicteric sclera noninjected conjunctiva HENT: ET tube in place and no oral thrush appreciated in the oral cavity; mucus membranes appear dry Neck: supple without thyromegaly, no lymphadenopathy, no JVD appreciated; Right IJ in place Cardiovascular: Regular rate and rhythm without murmur Lungs: Mild to moderate Coarse breath sounds heard throughout the lung scott anteriorly no wheezing noted Abdomen: Decreased bowel tones with nondistended abdomen, soft, no organomegaly noted tympanic to percussion Extremities: Radial pulses and dorsalis pedis pulses thready and weak but equal bilaterally No clubbing or edema; left radial arterial line in place : Sheth catheter in place Skin: Arctic sun wrap in place, No apparent wounds or skin ulcerations Neuro: could not be established as patient intubated and sedated Psych: Unable to obtain Lab and Diagnostics Result Diagram: 11/07/1632911/07/16329 X-Rays, CTs and MRIs PROCEDURE: X-RAY CHEST ONE VIEW, PORTABLE IMPRESSION: 1. The endotracheal tube is 4 cm above millicent. 2. Mild pulmonary edema. Dictated by: Carolyn Medina M.D. on 11/06/2016 at 12:38 PROCEDURE: CT BRAIN WITHOUT CONTRAST IMPRESSION: 1. No acute intracranial abnormalities. Dictated by: Carolyn Medina M.D. on 11/06/2016 at 12:17 Cardiac Echo Impressions Echocardiogram Report Interpretation Summary Normal sinus rhythm. Wide QRS complexes. Normal LV size; mild concentric LVH. There is mid-anterior, distal anterior hypokinesis and evidence of septal dyssynchrony. Otherwise normal wall motion where seen. EF is 40-45%. Normal diastolic dysfunction. Normal chamber sizes. Mitral valve leaflets are normal. There is trace mitral regurgitation. Tricuspid valve leaflets are normal; there is mild-moderate associated TR. Estimated PASP is 26 mm Hg assuming RA pressure of 5 mm Hg. No prior study available for comparison. Reading Physician:07:15 PM Additional Diagnostics EEG IMPRESSION: This EEG performed in the lethargic state is abnormal. It is limited by abundant myogenic and movement artifact and the single lead electrocardiogram demonstrating what appears to be a wide QRS complex is abnormal. If clinically indicated, recommend obtaining a 12-lead electrocardiogram. Review of this electroencephalogram reveals no evidence of focal, lateralized, or epileptiform discharges. No seizures were seen. Clinical correlation is advised. Joseph Rivera MD 11/06/162051 Assessment & Plan Patient is a 56 year old female with a history of hypertension and anxiety who presented to [facility]ED in respiratory then cardiac arrest. She is admitted to the ICU for hypothermia protocol. Hospital day 2 1. Cardiac arrest, acute, present on admission. - Likely secondary to respiratory failure but the exact events leading up to this are unknown. - Hypothermia protocol initiated in the ED at 1015 on 11/06/16. - Follow labs (CBC, CMP, CK-MB) as indicated by hypothermia protocol. - Electrolyte repletion as indicated by hypothermia protocol. - IV fluids as indicated by hypothermia protocol. - Nimbex available as needed to prevent shivering and accelerated warming. - Vigileo available for cardiac monitoring. - Non-DKA insulin drip ordered to go along with hypothermia protocol. - Patient rewarming initiated at 10 AM 11/07/2016 2. Acute hypoxic respiratory failure, present on admission. - Patient requiring mechanical ventilation. - Fentanyl and propofol for sedation. Titrate as needed to maintain adequate comfort during hypothermia protocol. - Dr. Norris of pulmonology has been consulted for ventilator management. - ABG PRN for vent adjustments. 3. Presume acute aspiration pneumonia, present on admission. - Food particles found when patient intubated. - Zosyn started in ED and will continue at this time. - Nasal MRSA screen ordered and pending. 4. Possible seizure activity, acute, present on admission. - Possibly secondary to anoxic brain injury. - EEG ordered and pending. - Lorazepam drip initiated. - Keppra loading dose given. 5. Possible stunned myocardium, acute, present on admission. - Secondary to cardiac arrest and resuscitation efforts. - Echo ordered shows EF of 40-45% with diastolic dysfunction and mid to distal anterior wall motion abnormality with septal asynchrony - Dobutamine drip to be started for inotropic support. 6. Possible lower GI bleed, acute, present on admission. - Patient passed guaiac positive stool with tint of blood in CCU. - Consider ischemic colitis secondary to hypoperfusion. - Will hold DVT prophylaxis at this time. - Protonix 40 mg IV BID. 7. Elevated transaminases, acute, present on admission. - Possibly secondary to shock liver related to hypoperfusion. May be a component of congestive hepatopathy secondary to stunned myocardium. - Continue to monitor CMP. 8. Acute kidney injury, present on admission. - Presume normal baseline. - Likely secondary to fluid depletion and possibly also hypoperfusion. - IV hydration ongoing per hypothermia protocol. - Continue to monitor BMP. 9. Alcohol dependence, chronic. - Reported significant alcohol use yesterday, 11/05/16. Alcohol level negative in ED. Presumed chronic alcohol use. - Lorazepam drip initiated. - Monitoring for withdrawal will be difficult as patient undergoing hypothermia protocol. 10. Anxiety with benzodiazepine dependence, chronic. - Home medication clonazepam 1 mg TID PRN. - Lorazepam drip initiated for management of seizure-like activity. 11. Polysubstance abuse, presume chronic. - Cocaine and marijuana positive urine tox. - Frequency of use unknown. 12. Hypertension, chronic, presume stable. - Home medication includes atenolol 50 mg BID. - Patient currently more hypotensive. Will hold home medication. - Antiemetic available PRN. - Bowel regimen available PRN. Disposition: Patient to remain in ventilated in ICU for a significant period of time given current diagnoses and likelihood of complications. GI Prophylaxis: Proton Pump Inhibitor VTE Prophylaxis: Sub-Q Enoxaparin, SCDs Resuscitation Status: CPR: Attempt Resuscitation Attending Statement The patient was seen and examined together with Dr. Diaz on 11/07/2016 and I agree with the history, exam and plan as outlined in the note above. . Adalid Diaz DO Nov 07, 2016 06:52 Osmany Schroeder MD Nov 09, 2016 19:07
--- NOTE | 2016-11-07 18:23 | NUR ---
Hemodynamics/neuro/rewarming/ Rewarming in process. Core temperature currently 34.4. No shivering noted at this time. BIS 60s. Free of s/s of seizure activity. Ativan and propofol gtt continued. Keppra and vimpat as scheduled. Occasionally opens eyes and withdrawals to painful stimuli. Levophed infusing at 0.1mcg/kg/min and dobutamine continued at 8mcg/kg/min. Maintaining MAP 75 to 80. CVP 12. SR/ST per supervisor coremaker. Sp02 >92% on 35% fi02 and peep of 5. Riding set ventilator rate, no overbreathing observed. Will continue to monitor.
[2016-11-07] MEDS: levETIRAcetam Inj 1,500 MG in 0.9% Sodium Chloride 100 ML IV SCH (20:46)
[2016-11-07 21:02] LABS: Magnesium 2.1 mg/dL (1.6-2.6)
[2016-11-08] VITALS (13 sets, daily range): BP systolic 92–125; BP diastolic 53–70; PULSE 66–106; RESP 14–23; O2SAT 94–98
[2016-11-08] MEDS: Propofol Inj 1,000,000 MCG in IV Premix 1 EACH IV PRN ×5 (00:09→21:57)
[2016-11-08] MEDS: Chlorhexidine 0.12% 15 mL Oral Solution MT SCH ×6 (00:09→19:52)
[2016-11-08] MEDS: NACL IV SCH (00:30)
[2016-11-08] MEDS: DEXTROSE IV SCH (00:30)
[2016-11-08] MEDS: SODIUM BICARB IV SCH (00:30)
[2016-11-08] MEDS: Norepinephrine 8,000 mCg/250 mL D5W Premix IV SCH ×2 (02:36→17:49)
--- NOTE | 2016-11-08 04:39 | NUR ---
Elida Call from [facility] at [facility] 10/03 (Phone number [phone]). Pt son is in [place] deployed on ship, and family called Elida to bring son Kelvin in to see his mom. Reference number [id number]. Informed Nancie that pt is in critical condition (stable for now) undergoing targeted temperature management for unknown cardiac arrest. Potential for complications are great and pt prognosis unknown. Elida will start process to bring Kelvin in from ship. It could take up to 72 hours. They can be reached at any time.
--- NOTE | 2016-11-08 04:43 | NUR ---
Hypothermia/Labs Pt rewarmed to 36.0 degrees C at 0200. Maintained above 36 degrees without complications. Lactic acid increasing throughout shift and continue to recheck q2h. MD aware of values. Pt remains on gtts and currently stable. Will continue to monitor. Care ongoing
--- NOTE | 2016-11-08 05:43 | ABG ---
DateTimeAnalyzed 05:40:00 -_ pH ____7.434 - 7.350 7.450 pCO2 ___35.1__ -mmHg 35.0 45.0 pO2 ___71.8__ -mmHg 69.0 116 HCO3- ___23.1__ -mmol/L 22.0 26.0 ABE ___-0.3__ -mmol/L -2.0 2.0 tHb ___10.0__ -g/dL O2Hb ___94.6__ -% COHb ____0.8__ -% MetHb ____1.2__ -% sO2 ___96.5__ -% FIO2 ___35.0__ -% PRVC 400 - PEEP ____5.0__ -cmH2O Set_RR ___15.0__ -b/min Drawn By RB - Spontaneous_RR ___22.0__ -b/min Oxygen Device 1 VENTILATOR - Notified Whom ROB R, RN - B 751 -mmHg tO2 ___13.4__ -Vol% Soto test N/A -
[2016-11-08 05:56] LABS: BASOPHILS % (AUTO) 0.2 % (0-3); EOSINOPHILS % (AUTO) 1.3 % (0-5); MONOCYTES % (AUTO) 3.8 % (4-12); Mean Corpuscular Hemoglobin 29.6 pg (27.0-35.0); Mean Corpuscular Volume 88.2 fL (81-100); NEUTROPHILS % (AUTO) 78.3 % (40-74); Platelet Count 142 bil/L (150-400)
--- NOTE | 2016-11-08 06:06 | NUR ---
Neuro During bed bath, pt got extremely agitated. Would open eyes and shake head, but these movements were not on command or purposeful. Pt would also try and sit up like she was getting out of bed. IV meds given to help calm pt down as she was not able to be oriented. Will continue to monitor. Care ongoing
[2016-11-08 06:28] LABS: ERYTHROCYTE SEDIMENTATION RATE 9 mm/hr (0-40)
[2016-11-08 06:45] LABS: Magnesium 1.9 mg/dL (1.6-2.6); Phosphorus 1.9 mg/dL (2.5-4.9)
[2016-11-08] MEDS: Pantoprazole 4 mg/mL 10 mL Inj IVPUSH SCH ×2 (07:30→15:49)
[2016-11-08] MEDS: DOBUTamine 500 mg/250 D5W 500,000 MCG in IV Premix 1 EACH IV SCH (07:48)
[2016-11-08] MEDS: Heparin 25K Unit/500mL 0.45 NS 25,000 UNIT in IV Premix 1 EACH IV SCH (07:50)
[2016-11-08] MEDS: KCl 40 mEq/100 mL IV Premix (K < 3 & Creat <2) IV SCH ×2 (08:00→14:18)
[2016-11-08] MEDS ORDERED: Potassium Phos (mEq) Inj 40 MEQ in Dextrose 5% 500 ML IV ONE (08:10)
[2016-11-08] MEDS: Piperacillin-Tazo 3.375 Gm Inj 3.375 GM in Dextrose 5% Minibag Plus 50 ML IV SCH ×2 (08:30→19:52)
[2016-11-08] MEDS: levETIRAcetam Inj 1,500 MG in 0.9% Sodium Chloride 100 ML IV SCH ×2 (08:30→19:53)
--- NOTE | 2016-11-08 09:37 | DRSVH ---
PROCEDURE: X-RAY CHEST ONE VIEW, PORTABLE ([id number]) INDICATIONS: acute respiratory failure TECHNIQUE: One view of the chest was acquired. COMPARISON: [facility], CR, XR CHEST 1VW (PORTABLE), 11/07/2016, 9:49. FINDINGS: Surgical changes and devices: Stable position of ETT, nasogastric tube and right IJ CVL Lungs and pleura: No significant change in diffuse, widespread bilateral interstitial and airspace op acities involving the right hilum and left lung base. No pneumothorax. Mediastinum: Mediastinal contours appear normal. Heart size is normal. Bones and chest wall: No suspicious bony lesions. Overlying soft tissues appear unremarkable. IMPRESSION: Persistent pulmonary edema and/or diffuse bilateral pneumonia. Dictated by: Kei Glynn RRA Interpreted: Faustina Panchal MD on 11/08/2016 at 9:36 Transcribed by: GUILHERME on 11/08/2016 at 9:36 Approved by: Faustina Panchal MD, PhD on 11/08/2016 at 17:05
--- NOTE | 2016-11-08 10:41 | DRSVH ---
PROCEDURE: X-RAY CHEST ONE VIEW, PORTABLE ([id number]) INDICATIONS: sob, repeat cxr with inspiration TECHNIQUE: One view of the chest was acquired. COMPARISON: [facility], CR, XR CHEST 1VW (PORTABLE), 11/07/2016, 9:49. [facility], CR, XR CHEST 1VW (PORTABLE), 11/08/2016, 3:24. FINDINGS: Surgical changes and devices: Stable position of ETT, nasogastric tube and right IJ CVL Lungs and pleura: No significant change in diffuse, widespread bilateral interstitial and airspace op acities involving the mid lungs and lung bases. No pneumothorax. Trace pleural effusions. Mediastinum: Mediastinal contours appear normal. Heart size is normal. Bones and chest wall: No suspicious bony lesions. Overlying soft tissues appear unremarkable. IMPRESSION: No significant change in edema and/or bilateral inflammatory process. Dictated by: Kei Glynn RRA Interpreted: Faustina Panchal MD on 11/08/2016 at 10:39 Transcribed by: GUILHERME on 11/08/2016 at 10:41 Approved by: Faustina Panchal MD, PhD on 11/08/2016 at 17:08
--- NOTE | 2016-11-08 10:44 | PCM.PNMED ---
Subjective Date of Service Nov 08, 2016 Subjective Intensive Care/Pulmonology Consultation Note: Attending Dr. Alek Curry is a 56-year-old female with a past medical history significant for hypertension and anxiety who presented to [facility] Emergency Department after being found down, unresponsive, and severely hypothermic at 29.9C. She was subsequently found by EMS to be in PEA cardiac arrest thought to be secondary to cocaine-induced WI and was resuscitated and intubated in the field. She was admitted to the ICU for hypothermia protocol. Hospital day #3. Overnight: There were no acute events. Telemetry overnight was sinus rhythm, heart rate 90 to 110's, V-tach x 4 beats at 0320. Subjective exam and review of systems unobtainable as the patient is intubated and sedated. . Exam Vital Signs Vital Sign - Last Date Time Temp Pulse Resp B/P Pulse Ox O2 Delivery O2 Flow Rate FiO2 11/08/16 09:51 100 20 115/70 97 40 11/08/16 04:35 36.7 Mechanical Ventilator Intake and Output 11/07/16 11/07/16 11/08/16 Cumulative From/Thru 15:00 23:00 07:00 11/06/16 12:31 - 11/08/16 06:04 Intake Total 5217 ml 5644 ml 3171 ml 43957 ml Output Total 1300 ml 2405 ml 1675 ml 6260 ml Balance 3917 ml 3239 ml 1496 ml 9925 ml Intake IV Total 5217 ml 5644 ml 3171 ml 07619 ml Output Urine Total 700 ml 2255 ml 1500 ml 5335 ml Stool Total 200 ml 25 ml 225 ml Gastric Drainage Total 400 ml 150 ml 150 ml 700 ml # Bowel Movements 1 2 Exam General: Middle-aged female lying in bed and in no acute distress, intubated and sedated. Acute distress, well-developed, well-nourished, appropriately interactive HEENT: Normocephalic, atraumatic. External ears without defect. Pupils equal, round, and reactive to light. Anicteric sclerae and moist conjunctivae. Endotracheal nasopharyngeal tube in place. Neck: No lymphadenopathy or thyromegaly. Cardiovascular: Regular rate and rhythm with no murmurs, rubs, or gallops appreciated Pulmonary: Bronchial breath sounds in anterior lung scott. Normal respiratory effort with no use of accessory muscles. Abdomen: Soft, nontender, nondistended, bowel sounds present. No hepatosplenomegaly or masses appreciated. Extremities: SCD's in place. No clubbing, cyanosis, or edema. Skin: Normal temperature, turgor, and texture; no rash, ulcers, or subcutaneous nodules appreciated. Neurological: Cranial nerves grossly intact. Normal muscle strength, tone, and bulk. Reflexes, coordination, and sensory function within normal limits. No known gait impairment. Psychiatric: Normal mood and affect. Alert and oriented to person, place, and time. Ventilator settings: PRVC. Tidal volume 400. Respiratory rate 23. FiO2 35 %. PEEP 5.0. Peak 25. Plateau 20. ABG: PH 7.434. PCO2 35.1. PO2 71.8. HCO3 23.1. On PRVC with FiO2 35 %, PEEP 5.0, and SPO2 of 86.5%. IV drips and Sedatives: Fentanyl 100 g/hr, propofol 40 g/kg/min, lorazepam 4 mg/hr. Norepinephrine 0.125 g/kg/min and dobutamine 0.8 g/kg/min. IV lines: Left radial arterial line and right IJ. I&O: Net +9925 mL. . IVs and Medications Medications Reviewed: Medications were reviewed in detail Lab and Diagnostics Item Value Date Time Procalcitonin 0.06 ng/mL 11/06/16 1230 Procalcitonin 2.70 ng/mL H 11/08/16 0540 Item Value Date Time Lactic Acid Level 3.6 mmol/L H 11/08/16 0540 Lactic Acid Level 2.9 mmol/L H 11/08/16 0949 Item Value Date Time Calcium Level 7.2 mg/dL L 11/08/16 0540 Phosphorus Level 1.9 mg/dL L 11/08/16 0540 Magnesium Level 1.9 mg/dL 11/08/16 0540 Total Bilirubin 0.3 mg/dL 11/08/16 0540 Aspartate Amino Transf (AST/SGOT) 124 U/L H 11/08/16 0540 Alanine Aminotransferase (ALT/SGPT) 237 U/L H 11/08/16 0540 Alkaline Phosphatase 61 U/L 11/08/16 0540 C-Reactive Protein 8.7 mg/dL H 11/08/16 0540 Pro-B-Type Natriuretic Peptide 434.0 pg/mL H 11/08/16 0540 Total Protein 4.6 g/dL L 11/08/16 0540 Albumin 2.9 g/dL L 11/08/16 0540 Result Diagram: 11/08/16 0540 11/08/16 0540 Microbiology Urine culture has no growth to date. Sputum culture growing scant normal alexis. Blood culture 2 has no growth after 24 hours. MRSA screen negative. Stool occult blood positive. . X-Rays, CTs and MRIs X-RAY CHEST ONE VIEW, PORTABLE IMPRESSION: No significant change in edema and/or bilateral inflammatory process. Dictated by: Kei Glynn RRAura Interpreted: Faustina Panchal MD on 11/08/2016 at 10:39 X-RAY CHEST ONE VIEW, PORTABLE IMPRESSION: 1. The endotracheal tube is 4 cm above millicent. 2. Mild pulmonary edema. Dictated by: Carolyn Medina M.D. on 11/06/2016 at 12:38 CT BRAIN WITHOUT CONTRAST IMPRESSION: 1. No acute intracranial abnormalities. Dictated by: Carolyn Medina M.D. on 11/06/2016 at 12:17 . Cardiac Echo Impressions Echocardiogram Interpretation Summary: Normal sinus rhythm. Wide QRS complexes. Normal LV size; mild concentric LVH. There is mid-anterior, distal anterior hypokinesis and evidence of septal dyssynchrony. Otherwise normal wall motion where seen. EF is 40-45%. Normal diastolic dysfunction. Normal chamber sizes. Mitral valve leaflets are normal. There is trace mitral regurgitation. Tricuspid valve leaflets are normal; there is mild-moderate associated TR. Estimated PASP is 26 mm Hg assuming RA pressure of 5 mm Hg. No prior study available for comparison. Reading Physician:07:15 PM . Additional Diagnostics EEG IMPRESSION: This EEG performed in the lethargic state is abnormal. It is limited by abundant myogenic and movement artifact and the single lead electrocardiogram demonstrating what appears to be a wide QRS complex is abnormal. If clinically indicated, recommend obtaining a 12-lead electrocardiogram. Review of this electroencephalogram reveals no evidence of focal, lateralized, or epileptiform discharges. No seizures were seen. Clinical correlation is advised. Joseph Rivera MD 11/06/162051 . Assessment & Plan Kassy Curry is a 56-year-old female with a past medical history significant for hypertension and anxiety who presented to [facility] Emergency Department after being found down, unresponsive, and severely hypothermic at 29.9C. She was subsequently found by EMS to be in PEA cardiac arrest thought to be secondary to cocaine-induced WI and was resuscitated and intubated in the field. She was admitted to the ICU for hypothermia protocol. Hospital day #3. 1. Acute PEA cardiac arrest, present on admission. Resolved. - Presumed to be secondary to WI from possibly cocaine-induced versus less likely CAD versus respiratory arrest. - The patient was resuscitated in the field after 15 minutes of CPR. - Nimbex started briefly for 2 hours early in hypothermia protocol. - Continue Vigileo and telemetry for cardiac monitoring. - Non-DKA insulin drip ordered to go along with hypothermia protocol. - Hypothermia protocol initiated in the ED at 10:15 on 11/06/16 and completed today 11/08/16. 2. Acute cardiogenic shock, present on admission. Active. - Presumed to be secondary to WI from possibly cocaine-induced versus less likely CAD versus respiratory arrest. - Troponin initially negative likely due to hypoperfusion from arrest and hypothermia. - Continue dobutamine and titrate down as tolerated. - Continue cardiac heparin gtt. - Continue electrolyte repletion as needed. Keep potassium greater than 4.0 and magnesium greater than 2.0. - Echocardiogram revealed an EF of 40-45% and mid-anterior, distal anterior hypokinesis and evidence of septal dyssynchrony, as above. - Consulted cardiology, Dr. Alford, who will see the patient. We appreciate her recommendations and care of the patient. 3. Acute hypoxemic respiratory failure, present on admission. Active. - Patient requiring mechanical ventilation. - Continue fentanyl, propofol, and lorazepam for sedation as above and titrate down as tolerated. - Continue ventilator settings as above. - Monitor ABG daily for vent management. - CXR demonstrates as above. 4. Presumed acute aspiration pneumonia, present on admission. Active. - Food particles found when patient was intubated. - Continue Zosyn for aspiration and broad spectrum coverage. MRSA screen negative. - Procalcitonin was initially negative likely due to hypoperfusion from arrest and hypothermia. Now elevated at 2.70, as above. - Sputum culture growing scant normal alexis, as above. - Blood culture 2 has no growth after 24 hours, as above. 5. Possible seizure activity, acute, present on admission. Resolved. - Possibly secondary to anoxic brain injury. - EEG ordered and did not reveal any epileptiform, focal, or lateralized discharges. - Continue propofol and lorazepam gtt and titrate down and off as tolerated. - Continue Keppra and Vimpat. 6. Possible acute lower GI bleed, present on admission. Resolved. - Patient passed guaiac positive stool with tint of blood in CCU. - Consider ischemic colitis secondary to hypoperfusion. - Protonix 40 mg IV BID. 7. Elevated transaminases, acute, present on admission. - Possibly secondary to shock liver related to hypoperfusion. May be a component of congestive hepatopathy secondary to stunned myocardium. - Continue to monitor CMP. 8. Acute kidney injury, present on admission. Resolving. - Presume normal baseline renal function. - Likely secondary to fluid depletion and possibly also hypoperfusion. - Continue IV fluids. - Avoid nephrotoxic agents. - Continue to monitor renal function and urine output daily. 9. Alcohol dependence, chronic. - Reported significant alcohol use yesterday, 11/05/16. Alcohol level negative in ED. Presumed chronic alcohol use. - Lorazepam drip initiated. - Monitoring for withdrawal will be difficult as patient undergoing hypothermia protocol. 10. Anxiety with benzodiazepine dependence, chronic. - Home medication clonazepam 1 mg TID PRN. - Lorazepam drip initiated for management of seizure-like activity. 11. Polysubstance abuse, presumed chronic. - Cocaine and marijuana positive on UDS. - Frequency of use unknown. 12. Hypertension, chronic, presume stable. - Home medication includes atenolol 50 mg BID. - Patient currently more hypotensive. Will hold home medication. - Antiemetic available PRN. - Bowel regimen available PRN. Disposition: Patient to remain in ventilated in ICU for a significant period of time given current diagnoses and likelihood of complications. . GI Prophylaxis: Proton Pump Inhibitor VTE Prophylaxis: Sub-Q Enoxaparin, SCDs Resuscitation Status: CPR: Attempt Resuscitation Attending Statement I have seen and examined this patient with the resident physician. Vital signs , labs, imaging have been reviewed. I agree with the assessment and plan above. Please refer to my separately dictated progress note for any modifications to above. Jada Gaston M.D. Pulmonary and Critical Care medicine Pager [phone] Kendy Parnell DO Nov 08, 2016 10:44 Jada Gaston MD Nov 08, 2016 16:05
--- NOTE | 2016-11-08 11:53 | NUR ---
NUTRITION FOLLOW-UP: ASSESS:56 YO female presented to the ED via EMS due to respiratory arrest prior to arrival, intubated in the field after being found down for an unknown period of time, likely several hours, exhibiting PEA. Hypothermia protocol completed. She is receiving fluids and pressor support. Apparently particles of food were found during intubation; aspiration pneumonia likely. Seizure activity noted; EEG abnormal. Other issues include possible stunned myocardium, possible lower GI bleed, possible shock liver, polysubstance abuse, anxiety with benzo dependence. Authorization received to initiate enteral feeding today. PMHx:Anxiety, HTN, polysubstance abuse. DIET:NPO. LABS: Na 145, K+ 2.9, Chloride 111, Cr 1.04, Glu 152, Lactic Acid 2.9, Ca 7.2, Phos 1.9, AST 124, ALT 237, Alb 2.9, Procalcitonin 2.70. MEDICATIONS: Dobutamine, keppra, fentanyl. Propofol rate currently 9.0 ml / hr, providing 238 lipid kcal. NUTRITION FOCUSED PHYSICAL ASSESSMENT: GI symptoms / stool: BM x 1 (11/07).Luis Alfredo: 9. Skin Integrity: No issues as yet documented. ANTHROPOMETRICS: Current Wt: 98.6 kg, BMI 37.0 kg/m2. Admit weight: 75.0 kg, BMI: 28.0 kg/m2. IBW: 54.5 kg (137.5% IBW) ESTIMATED NEEDS (VENT): Calories: 1500 - 1875 kcal (20 - 25 kcal / kg BW) Protein: 113 - 135 g protein (1.5 - 1.8 g / kg BW) Fluid: Approx. 2250 mL (30 mL / kg BW) NUTRITION DIAGNOSIS: 1) Inadequate oral intake related to inability to consume sufficient energy, as evidenced by NPO / vent status. INTERVENTION: 1) Enteral feeding initiated this morning as follows: Jevity 1.5 at 10 ml/hr x 24 hr. Once tolerance established, recommend advance 5 ml every 4 hr. to goal rate 45 ml/hr, which would provide 1485 kcal (1723 kcal with propofol), 63 g protein. Will add 5 packets ProSource per day to meet 100% protein requirements. MONITOR/EVALUATE: NPO / vent status, enteral feeding advance / tolerance, labs, GI/nutrition status. Follow up per high nutrition risk guidelines.
[2016-11-08] MEDS ORDERED: Furosemide 10 mg/mL 2 mL Inj IVPUSH ONE (12:35)
--- NOTE | 2016-11-08 13:50 | PROG NOTE ---
[address] [address] PROGRESS NOTE PATIENT: MALGORZATA LOO : 1960 MR#: [id number] ADMIT: 11/06/2016 JOB ID: [id number] DATE: 11/08/2016 The patient was seen and evaluated with resident physician, Kendy Parnell. Please refer to her separate detailed note for additional information. INPATIENT PROGRESS NOTE: The patient is a 56-year-old woman admitted to the hospital on November 06 with PEA arrest, aspiration and likely accidental polysubstance overdose. INTERVAL HISTORY: She completed rewarming per hypothermia protocol and her sedation was lightened this morning. The patient became responsive, following commands. She, however, was apneic on a spontaneous breathing trial. Review of systems could not be obtained. PHYSICAL EXAMINATION: Vital signs reviewed. FiO2 of 35%. General: Intubated, sedated. Does not respond to me. Chest clear to auscultation. Heart: Regular rate and rhythm. LABORATORIES: Reviewed. Severe hypokalemia is being corrected. Other labs are within normal limits. Cultures: No growth. Chest x-ray shows bilateral effusions plus-minus atelectasis. Procalcitonin up to 2.7 from 0.06. Arterial blood gas this morning shows pH of 7.43, pCO2 of 35, pO2 of 71. ASSESSMENT AND RECOMMENDATIONS: 1. PEA arrest on November 06, 2016. 2. Acute encephalopathy. 3. Polysubstance overdose including cocaine, alcohol. 4. Acute kidney injury, improving. 5. Aspiration pneumonia. This 56-year-old woman does not have a significant longstanding history of drug abuse according to her . He did indicate she has been under a lot of stress and had likely had a lot of alcohol on board and used some cocaine which she only does rarely. Regardless she was found down, not breathing and he did CPR until medics arrived. She has been on hypothermia protocol until yesterday and completed rewarming this morning and appears to be responsive, showing evidence of neurologic recovery which is highly reassuring. Her sedation has been turned off and we will try to adjust her vent settings to allow her to over breathe and then try to repeat a pressure support trial. I suspect it may take most of today for the drugs over the last few days to leave her system and for her to be able to extubate tomorrow morning hopefully. Her procalcitonin has gone up most consistent with aspiration pneumonia with this clinical history. She was on dobutamine and norepinephrine which were all weaned off this morning with lightening the sedation. She is getting Zosyn for aspiration pneumonia. We should be able to complete a seven-day course of this. Chest x-ray today does show evidence of volume overload. So, I would like to start diuresis today as well. She is getting Keppra but I think we could stop this if there is no obvious evidence of seizure activity going on. We should be watchful for alcohol withdrawal although the patient's indicates she does not drink daily so this may not be much of a problem. She is on appropriate DVT and GI prophylaxis and she is a FULL CODE. CRITICAL CARE TIME: 45 minutes.
[2016-11-08] MEDS: LORazepam 100 mg/100 mL NS 100 MG in IV Premix 100 EACH IV SCH (14:42)
--- NOTE | 2016-11-08 16:56 | NUR ---
P: Hypotension I: Pt off of dobutamine gtt and Levophed was off but now is at 0.2mcqs/kg/min. Pt's sedation was turned down to 20mcqs/kg/min and fentanyl decreased to 50mcqs/hr with ativan dc'd and pt opens her eyes and moves all four extremities. Pt shook her head no when I told her she was in the hospital. Placed pt on PST but pt did not breathe well enough. Vent rate decreased to 14. Pt at 1400 was trying to sit up in bed and getting very agitated. at bedside and sedation resumed. Propofol 30mcqs/kg/min and fentanyl dc'd per . Potassium level this am 2.9 and 40 mEq KCL riders x2 infused and Kphos rider infusing now over 8 hours. Lactic acid below 2.0 so Q 2 hours lactic acids stopped. Lasix 20 mg IV given this afternoon. FMS draining brown liquid stool and flatus. OGT patent and tube feeding started 1500 at 10cc/hr x24 hours. Water flush 40cc Q 4 hours. Turned Q 2 hours. Blood sugars WNL. Sodium bicarb gtt dc'd this am. Heparin infusing at 825units/hr with next PTT 2030. NSR. at bedside and updated on pt's condition and plan of care. E: Stable S: Restraints on for pt safety. Frequent rounding.
--- NOTE | 2016-11-08 17:48 | PCM.PNMED ---
Subjective Date of Service Nov 08, 2016 Subjective Overnight: No acute events overnight Today: Patient continues to not follow significant directions. Patient has a resolved elevated lactic acid levels. Cardiology planning on taking the patient to mobile lab technician in several days. Plan for extubation within the next several days. Exam Vital Signs Vital Sign - Last Date Time Temp Pulse Resp B/P Pulse Ox O2 Delivery O2 Flow Rate FiO2 11/08/16 05:07 107 125/68 94 35 11/08/16 04:35 36.7 23 Mechanical Ventilator Intake and Output 11/07/16 11/07/16 11/08/16 Cumulative From/Thru 15:00 23:00 07:00 11/06/16 12:31 - 11/08/16 06:04 Intake Total 5217 ml 5644 ml 3171 ml 33499 ml Output Total 1300 ml 2405 ml 1675 ml 6260 ml Balance 3917 ml 3239 ml 1496 ml 9925 ml Intake IV Total 5217 ml 5644 ml 3171 ml 02461 ml Output Urine Total 700 ml 2255 ml 1500 ml 5335 ml Stool Total 200 ml 25 ml 225 ml Gastric Drainage Total 400 ml 150 ml 150 ml 700 ml # Bowel Movements 1 2 Exam Gen.: Patient intubated and sedated in the ICU; cooling pads in place on the thorax and lower extremities Eyes: Pupils equal at 2 mm and sluggish to light, anicteric sclera noninjected conjunctiva HENT: ET tube in place and no oral thrush appreciated in the oral cavity; mucus membranes moist Neck: supple without thyromegaly, no lymphadenopathy, no JVD appreciated; Right IJ in place Cardiovascular: Regular rate and rhythm without murmur Lungs: Mild to moderate Coarse breath sounds heard throughout the lung csott anteriorly, no wheezing noted Abdomen: Decreased bowel tones with nondistended abdomen, soft, no organomegaly noted tympanic to percussion Extremities: Radial pulses and dorsalis pedis pulses thready and weak but equal bilaterally No clubbing or edema; left radial arterial line in place : Sheth catheter in place Skin: Arctic sun wrap in place, No apparent wounds or skin ulcerations Neuro: could not be evaluated as patient intubated and sedated Psych: Unable to obtain Lab and Diagnostics Result Diagram: 11/08/16 0540 11/07/162029 X-Rays, CTs and MRIs PROCEDURE: X-RAY CHEST ONE VIEW, PORTABLE IMPRESSION: 1. The endotracheal tube is 4 cm above millicent. 2. Mild pulmonary edema. Dictated by: Carolyn Medina M.D. on 11/06/2016 at 12:38 PROCEDURE: CT BRAIN WITHOUT CONTRAST IMPRESSION: 1. No acute intracranial abnormalities. Dictated by: Carolyn Medina M.D. on 11/06/2016 at 12:17 Cardiac Echo Impressions Echocardiogram Report Interpretation Summary Normal sinus rhythm. Wide QRS complexes. Normal LV size; mild concentric LVH. There is mid-anterior, distal anterior hypokinesis and evidence of septal dyssynchrony. Otherwise normal wall motion where seen. EF is 40-45%. Normal diastolic dysfunction. Normal chamber sizes. Mitral valve leaflets are normal. There is trace mitral regurgitation. Tricuspid valve leaflets are normal; there is mild-moderate associated TR. Estimated PASP is 26 mm Hg assuming RA pressure of 5 mm Hg. No prior study available for comparison. Reading Physician:07:15 PM Additional Diagnostics EEG IMPRESSION: This EEG performed in the lethargic state is abnormal. It is limited by abundant myogenic and movement artifact and the single lead electrocardiogram demonstrating what appears to be a wide QRS complex is abnormal. If clinically indicated, recommend obtaining a 12-lead electrocardiogram. Review of this electroencephalogram reveals no evidence of focal, lateralized, or epileptiform discharges. No seizures were seen. Clinical correlation is advised. Joseph Rivera MD 11/06/162051 Assessment & Plan Patient is a 56 year old female with a history of hypertension and anxiety who presented to [facility] in respiratory then cardiac arrest. She is admitted to the ICU for hypothermia protocol. Hospital day 3 1. Cardiac arrest, acute, present on admission. - Given wall motion abnormalities on echo and positive tox screen this is possibly related to a cocaine induced myocardial infarction - Hypothermia protocol initiated in the ED at 1015 on 11/06/16. - Follow labs (CBC, CMP, CK-MB) as indicated by hypothermia protocol. - Electrolyte repletion as indicated by hypothermia protocol. - IV fluids as indicated by hypothermia protocol. - Vigileo available for cardiac monitoring. - Non-DKA insulin drip ordered to go along with hypothermia protocol. - Patient rewarming initiated at 10 AM 11/07/2016 - Cardiology to take patient for cardiac catheterization in the next several days for evaluation of coronary artery disease 2. Acute hypoxic respiratory failure, present on admission. - Patient requiring mechanical ventilation. - Fentanyl and propofol for sedation. Titrate as needed to maintain adequate comfort during hypothermia protocol. - Dr. Norris of pulmonology has been consulted for ventilator management. - ABG PRN for vent adjustments. 3. Presume acute aspiration pneumonia, present on admission. - Food particles found when patient intubated. - Zosyn started in ED and will continue at this time. - Nasal MRSA screen ordered and pending. 4. Possible seizure activity, acute, present on admission. - Possibly secondary to anoxic brain injury. - EEG ordered and pending. - Lorazepam drip initiated. - Keppra loading dose given. 5. Possible stunned myocardium, acute, present on admission. - Secondary to cardiac arrest and resuscitation efforts. - Echo ordered shows EF of 40-45% with diastolic dysfunction and mid to distal anterior wall motion abnormality with septal asynchrony - Dobutamine drip to be started for inotropic support. 6. Possible lower GI bleed, acute, present on admission. - Patient passed guaiac positive stool with tint of blood in CCU. - Consider ischemic colitis secondary to hypoperfusion. - Will hold DVT prophylaxis at this time. - Protonix 40 mg IV BID. 7. Elevated transaminases, acute, present on admission. - Possibly secondary to shock liver related to hypoperfusion. May be a component of congestive hepatopathy secondary to stunned myocardium. - Continue to monitor CMP. 8. Acute kidney injury, present on admission. - Presume normal baseline. - Likely secondary to fluid depletion and possibly also hypoperfusion. - IV hydration ongoing per hypothermia protocol. - Continue to monitor BMP. 9. Alcohol dependence, chronic. - Reported significant alcohol use yesterday, 11/05/16. Alcohol level negative in ED. Presumed chronic alcohol use. - Lorazepam drip initiated. - Monitoring for withdrawal will be difficult as patient undergoing hypothermia protocol. 10. Anxiety with benzodiazepine dependence, chronic. - Home medication clonazepam 1 mg TID PRN. - Lorazepam drip initiated for management of seizure-like activity. 11. Polysubstance abuse, presume chronic. - Cocaine and marijuana positive urine tox. - Frequency of use unknown. 12. Hypertension, chronic, presume stable. - Home medication includes atenolol 50 mg BID. - Patient currently more hypotensive. Will hold home medication. - Antiemetic available PRN. - Bowel regimen available PRN. Disposition: Patient to remain in ventilated in ICU for possibly several more days time given current diagnoses and likelihood of complications. GI Prophylaxis: Proton Pump Inhibitor VTE Prophylaxis: Sub-Q Enoxaparin, SCDs Resuscitation Status: CPR: Attempt Resuscitation Attending Statement The patient was seen and examined together with Dr. Diaz on 11/08/2016 and I agree with the history, exam and plan as outlined in the note above. . Adalid Diaz DO Nov 08, 2016 06:42 Osmany Schroeder MD Nov 09, 2016 19:10
[2016-11-09] VITALS (13 sets, daily range): BP systolic 113–162; BP diastolic 61–103; PULSE 61–100; RESP 14–33; O2SAT 93–98
[2016-11-09] MEDS: Chlorhexidine 0.12% 15 mL Oral Solution MT SCH ×6 (00:44→20:30)
--- NOTE | 2016-11-09 00:48 | CONS ---
[address] [address] CONSULTATION REPORT PATIENT: MALGORZATA LOO : 1960 MR#: [id number] ADMIT: 11/06/2016 JOB ID: [id number] DATE OF SERVICE: 11/08/2016 CHIEF COMPLAINT: [id number] cardiac arrest. HISTORY OF PRESENT ILLNESS: The patient is a 56-year-old woman who was found down by her on November 06, 2016. The patient had PA cardiac arrest. She was intubated, sedated, cooled, and now Cardiology is consulted to assist with management, in particular, since her presentation was complicated by elevated troponin T peaking at 0.052 in the setting of acute renal failure with creatinine peaking at 1.7. Additionally, patient's echocardiogram demonstrated newly identified cardiomyopathy. She has mid anterior and distal anterior hypokinesis and evidence of septal dyssynchrony. EF is 40% to 45%. Normal chamber sizes. No significant valvular abnormalities are present. Patient had positive drugs of abuse screen unfortunately, which may have contributed to her presentation. PAST MEDICAL HISTORY: Anxiety and hypertension. FAMILY HISTORY: Unknown. Patient intubated, sedated, and unable to answer. SOCIAL HISTORY: She smokes every day. was not at the bedside, so I could not really ask him about drug use. ALLERGIES: No known drug allergies. CURRENT MEDICATIONS: In the hospital: 1. Propofol 120 mcg/kg per minute. 2. Heparin drip and normal saline 10 cc/hour. 3. Lacosamide 100 mg twice a day. 4. Keppra 1.5 g dissolved as a dose of 115 mL per hour. 5. Zosyn. 6. Sliding scale insulin ordered, but currently not hanging. REVIEW OF SYSTEMS: Unable to obtain as patient is intubated and sedated. PHYSICAL EXAM: Vital signs: Temperature 37.2. Blood pressure 92/66 up to 125/68. Pulse 66 up to 107 beats per minute. She is satting 94% to 98% on 40% FiO2. At this moment in time, heart rate is 86 beats per minute, blood pressure 93/66. Satting 99% on the following vent settings: 35% FiO2, PEEP of 5, tidal volume 400 cc per inhalation and PRBC mode. General: A well-nourished woman in no apparent distress, intubated and sedated. Eyes: No scleral icterus. Neck: Supple. No carotid bruits. Heart: Normal S1, S2. No murmurs. Lungs demonstrate clear breath sounds anterior. Abdomen: Soft, with hypoactive bowel sounds. Sheth catheter is in. Extremities show no evidence of edema. STUDIES: EKG: Normal sinus rhythm, normal axis, poor R-wave progression in precordial leads, and incomplete left bundle branch block. Of note, on admission, patient had AFib with wide QRS complexes with obvious left bundle branch block. Her rate on admission with 87 beats per minute. Admission blood gas showed pH of 6.99, pCO2 of 62, pO2 141, and bicarb of 14. Potassium was normal on admission, currently 2.9. Lactic acid was elevated on admission, peaked at 6.4. Troponin T was elevated, peaked at 0.05 in the setting of renal insufficiency. AST 124, ALT 127. On admission, were much higher. AST was 1003, ALT was 778. ASSESSMENT AND PLAN: This is a 56-year-old woman admitted with [id number] PEA arrest, probably triggered by a combination of metabolic and respiratory acidosis along with hypoxia. This problem was probably triggered by a drug overdose. It could have been triggered by alcohol excess versus cocaine. She could have had vasospasm from cocaine which actually led to possibly near fatal arrhythmia and syncope. It is really unknown exactly what happened. Cardiology is consulted to assist with management. I think, given new cardiomyopathy, it is reasonable to pursue a cardiac catheterization, especially since she did use cocaine and that can be an important risk factor for coronary artery disease and also vasospasm. Right now, the cath schedule is such that we cannot even contemplate cardiac catheterization until at the earliest would be November 11. Will continue to monitor the patient closely and, hopefully, she will wake up and will be able to participate in informed consent process prior to going to the [employer]. Right now, she is not on any cardiac meds other than heparin for paroxysmal atrial fibrillation. I think that is reasonable. She just had her pressors weaned today. Once she can prove that she can sustain and remain hemodynamically stable without pressors, we have the option then to initiate cardiac medications such as GORDY inhibitors. Given history of cocaine use, not a good candidate for beta lisha due to possibility of unopposed alpha agonism in cocaine dependent individuals. Thank you very much for the opportunity to participate in her care. ANTONIA
[2016-11-09 01:07] LABS: Magnesium 1.6 mg/dL (1.6-2.6)
[2016-11-09] MEDS: Norepinephrine 8,000 mCg/250 mL D5W Premix IV SCH (02:57)
[2016-11-09] MEDS: Propofol Inj 1,000,000 MCG in IV Premix 1 EACH IV PRN (03:10)
[2016-11-09 03:22] LABS: BASOPHILS % (AUTO) 0.5 % (0-3); EOSINOPHILS % (AUTO) 1.7 % (0-5); MONOCYTES % (AUTO) 5.3 % (4-12); Mean Corpuscular Hemoglobin 29.7 pg (27.0-35.0); Mean Corpuscular Volume 90.2 fL (81-100); NEUTROPHILS % (AUTO) 68.5 % (40-74); Platelet Count 200 bil/L (150-400)
[2016-11-09 03:47] LABS: Magnesium 1.8 mg/dL (1.6-2.6); Phosphorus 3.2 mg/dL (2.5-4.9)
[2016-11-09] MEDS ORDERED: Heparin 5,000 Unit/mL Inj ONE (03:56)
--- NOTE | 2016-11-09 04:28 | ABG ---
DateTimeAnalyzed 04:26:00 -_ pH ____7.418 - 7.350 7.450 pCO2 ___36.7__ -mmHg 35.0 45.0 pO2 105 -mmHg 69.0 116 HCO3- ___23.2__ -mmol/L 22.0 26.0 ABE ___-0.5__ -mmol/L -2.0 2.0 tHb ___10.6__ -g/dL O2Hb ___96.4__ -% COHb ____0.9__ -% MetHb ____1.0__ -% sO2 ___98.3__ -% FIO2 ___35.0__ -% PRVC 400 - PEEP ____5.0__ -cmH2O Set_RR ___15.0__ -b/min Drawn By AF - Date/Time Notified____ 04:28:00 -_ Spontaneous_RR ___22.0__ -b/min Oxygen Device 1 VENTILATOR - Notified By AF - B 758 -mmHg tO2 ___14.5__ -Vol% Soto test N/A -
--- NOTE | 2016-11-09 06:27 | NUR ---
Hypotension/Lab/nutrition Map>65, on levo gtt, slowly tapered down, now @ 0.164 mcg/kg/min, NS @ tko; lost left art line access this am after cxr at bedside;received kphos rider, K+ 4.5 at midnight; tolerated tube feeds well, fms drained 100cc liquid stool, saucedo drained with large uo, pt on propofol gtt, RASS -3 through the night, this AM pt opens eyes and tracks, does not seem to follow simple commands, bilateral soft wrist restraints on.
[2016-11-09] MEDS: Pantoprazole 4 mg/mL 10 mL Inj IVPUSH SCH ×2 (07:30→17:25)
[2016-11-09] MEDS: Piperacillin-Tazo 3.375 Gm Inj 3.375 GM in Dextrose 5% Minibag Plus 50 ML IV SCH ×2 (08:30→21:18)
[2016-11-09] MEDS ORDERED: Furosemide 10 mg/mL 4 mL Inj ONE (10:30)
--- NOTE | 2016-11-09 11:24 | DRSVH ---
PROCEDURE: X-RAY CHEST ONE VIEW, PORTABLE ([id number]) INDICATIONS: SOB TECHNIQUE: One view of the chest was acquired. COMPARISON: [facility], CR, XR CHEST 1VW (PORTABLE), 11/08/2016, 9:28. FINDINGS: Surgical changes and devices: Endotracheal and nasogastric tubes as well as the right internal jugula r catheter are stable in position. Lungs and pleura: There are persistent small bilateral pleural effusions with bibasilar consolidatio n, atelectasis, or aspiration. There are low lung volumes. No definite pneumothorax. Mediastinum: Mediastinal contours appear unchanged. Heart size is normal. Bones and chest wall: No suspicious bony lesions. Overlying soft tissues appear unremarkable. IMPRESSION: 1. Persistent bilateral pleural effusions and bibasilar consolidation or atelectasis. Dictated by: Encoh Hopper M.D. on 11/09/2016 at 11:17 Approved by: Enoch Hopper M.D. on 11/09/2016 at 11:18
[2016-11-09] MEDS ORDERED: Furosemide 10 mg/mL 4 mL Inj IVPUSH ONE (11:30)
--- NOTE | 2016-11-09 12:22 | NUR ---
Patient extubated at 1222 and placed on 3lpm NC. Patient HR remained 120 Dr. Gaston aware RR does increase with agitation. She does have a difficult time clearing her throat and coughing post extubation but follows commands, continues to try and get out of bed. Sp02 93% HR 120 RR 32 and slightly agitated. Will place patient on heated highflow.
--- NOTE | 2016-11-09 13:03 | PROG NOTE ---
[address] [address] PROGRESS NOTE PATIENT: MALGORZATA LOO : 1960 MR#: [id number] ADMIT: 11/06/2016 JOB ID: [id number] DATE: 11/09/2016 PULMONARY CRITICAL CARE PROGRESS NOTE: The patient is a 56-year-old woman brought in on November 06 with PEA arrest, aspiration and accidental polysubstance overdose. INTERVAL HISTORY: She did well on her spontaneous breathing trial this morning and is alert, responsive. She was on low-dose vasopressors overnight with norepinephrine at 0.1 but now off. REVIEW OF SYSTEMS: Could not be obtained. PHYSICAL EXAMINATION: Vital signs reviewed. Temperature 37.2, pulse 101, respirations 14, BP 150/100, sats 97% on 35% FiO2. General: Eyes closed, moved slightly to voice but does not follow my commands. Chest is clear to auscultation. LABORATORIES: Reviewed. WBC slightly up to 12.6. Chemistry also reviewed. Creatinine is 1.05. Cultures: No new growth. Chest x-ray done today shows bilateral effusions and atelectasis, symmetric. ASSESSMENT AND RECOMMENDATIONS: 1. PEA arrest on November 06, 2016, status post hypothermia protocol. 2. Acute hypoxic respiratory failure. 3. Polysubstance overdose including cocaine and alcohol. 4. Acute kidney injury-improved. 5. Aspiration pneumonia. This 56-year-old woman was brought into the hospital on November 06 after a PEA arrest, found down by her with CPR in the field. She has been on hypothermia protocol. There was evidence of cocaine and alcohol on her tox screen, but according to her , she does not regularly use these and it was an accidental overdose, not an intentional one. She is quite alert today according to the nursing staff and respiratory therapy and did well on her spontaneous breathing trial. Pressure support 5/5. I am going to give her another dose of Lasix 40 mg IV since she clearly appears volume up based on her ins and outs and also her chest x-ray. We will plan on extubation today. She is off all pressors. She is getting Zosyn for aspiration pneumonia. Will complete a seven day course of this. CRITICAL CARE TIME: 60 minutes.
[2016-11-09] MEDS ORDERED: levETIRAcetam Inj 1,500 MG in 0.9% Sodium Chloride 100 ML IV SCH (13:49)
--- NOTE | 2016-11-09 13:55 | NUR ---
NUTRITION FOLLOW-UP: ASSESS:56 YO female presented to the ED via EMS due to respiratory arrest prior to arrival, intubated in the field after being found down for an unknown period of time, likely several hours, exhibiting PEA. Hypothermia protocol completed. Enteral feeding was initiated yesterday, discontinued today, status post extubation. Swallow evaluation not yet ordered. PMHx:Anxiety, HTN, polysubstance abuse. DIET:NPO. ENTERAL FEEDING: Jevity 1.5 @ trophic rate 10 ml/hr. LABS: Na 145, Chloride 113, Cr 1.05, Glu 112, Ca 7.6, AST 61, ALT 177, Alb 2.6. MEDICATIONS: Dobutamine, keppra, fentanyl. Propofol rate currently 9.0 ml / hr, providing 238 lipid kcal. NUTRITION FOCUSED PHYSICAL ASSESSMENT: GI symptoms / stool: BM x 1 today.Luis Alfredo: 13. Skin Integrity: No issues as yet documented. ANTHROPOMETRICS: Current Wt: 98.6 kg, BMI 37.0 kg/m2. Admit weight: 75.0 kg, BMI: 28.0 kg/m2. IBW: 54.5 kg (137.5% IBW) ESTIMATED NEEDS (VENT): Calories: 1500 - 1875 kcal (20 - 25 kcal / kg BW) Protein: 113 - 135 g protein (1.5 - 1.8 g / kg BW) Fluid: Approx. 2250 mL (30 mL / kg BW) NUTRITION DIAGNOSIS: 1) Inadequate oral intake related to inability to consume sufficient energy, as evidenced by NPO / vent status - PERSISTS FOLLOWING EXTUBATION. INTERVENTION: 1) Await order for and completion of swallow evaluation prior to ordering supplements. MONITOR/EVALUATE: NPO status, diet advance / tolerance, PO intake, labs, GI/nutrition status. Follow up per high nutrition risk guidelines.
[2016-11-09] MEDS: Heparin 25K Unit/500mL 0.45 NS 25,000 UNIT in IV Premix 1 EACH IV SCH (14:01)
[2016-11-09] MEDS ORDERED: Levalbuterol 1.25 mg/0.5mL Inhalation Solution NEB ONE (14:35)
[2016-11-09] MEDS ORDERED: Dexamethasone 4 mg/mL Inj IVPUSH ONE (14:35)
[2016-11-09] MEDS ORDERED: Haloperidol 5 mg/mL Inj IVPUSH ONE (14:45)
[2016-11-09 18:52] LABS: Magnesium 1.9 mg/dL (1.6-2.6)
--- NOTE | 2016-11-09 19:03 | PCM.PNMED ---
Subjective Date of Service Nov 09, 2016 Subjective Overnight: No acute events Today: Patient passed a pressure support breathing trial and was extubated at noon today. The nurse called me to evaluate some stridorous coarse breath sounds. At that time levalbuterol, and dexamethasone was given as well as a scopolamine patch placed given the patient's nothing by mouth status due to likely encephalopathy. The patient was given a 1 mg IV injection of Haldol which is reportedly helped control the patient's spontaneity and agitation. Exam Vital Signs Vital Sign - Last Date Time Temp Pulse Resp B/P Pulse Ox O2 Delivery O2 Flow Rate FiO2 11/09/16 04:30 62 119/67 97 35 11/09/16 04:09 37.2 14 Mechanical Ventilator Intake and Output 11/08/16 11/08/16 11/09/16 Cumulative From/Thru 15:00 23:00 07:00 11/06/16 12:31 - 11/09/16 06:17 Intake Total 1080 ml 1787 ml 77694 ml Output Total 2300 ml 1250 ml 9810 ml Balance -1220 ml 537 ml 9242 ml Intake IV Total 1061 ml 1363 ml 51611 ml Tube Feeding 19 ml 134 ml 153 ml Tube Irrigant 0 ml 290 ml 290 ml Output Urine Total 2300 ml 1150 ml 8785 ml Stool Total 100 ml 325 ml Gastric Drainage Total 0 ml 700 ml # Bowel Movements 2 Exam Physical exam prior to extubation Gen.: Patient intubated and sedated in the ICU; cooling pads in place on the thorax and lower extremities Eyes: Pupils equal round and reactive to light, anicteric sclera noninjected conjunctiva HENT: ET tube in place and no oral thrush appreciated in the oral cavity; mucus membranes moist Neck: supple without thyromegaly, no lymphadenopathy, no JVD appreciated; Right IJ in place Cardiovascular: Regular rate and rhythm without murmur Lungs: Mild to moderate Coarse breath sounds heard throughout the lung scott anteriorly, no wheezing noted Abdomen: Decreased bowel tones with nondistended abdomen, soft, no organomegaly noted tympanic to percussion Extremities: Radial pulses and dorsalis pedis pulses thready and weak but equal bilaterally No clubbing or edema; left radial arterial line in place : Sheth catheter in place Skin: Arctic sun wrap in place, No apparent wounds or skin ulcerations Neuro: could not be evaluated as patient intubated and sedated Psych: Unable to obtain Physical exam postextubation Lungs: Stridorous and wet upper airway transmission, coarse breath sounds bilaterally with decreased breath sounds in the left lung scott Psych: Patient is mostly nonverbal, only uttering single words, unable to assess Lab and Diagnostics Result Diagram: 11/09/1630911/09/16309 Microbiology Urine culture has no growth to date. Sputum culture growing scant normal alexis. Blood culture 2 has no growth after 24 hours. MRSA screen negative. Stool occult blood positive. . X-Rays, CTs and MRIs PROCEDURE: X-RAY CHEST ONE VIEW, PORTABLE IMPRESSION: 1. The endotracheal tube is 4 cm above millicent. 2. Mild pulmonary edema. Dictated by: Carolyn Medina M.D. on 11/06/2016 at 12:38 PROCEDURE: CT BRAIN WITHOUT CONTRAST IMPRESSION: 1. No acute intracranial abnormalities. Dictated by: Carolyn Medina M.D. on 11/06/2016 at 12:17 Cardiac Echo Impressions Echocardiogram Report Interpretation Summary Normal sinus rhythm. Wide QRS complexes. Normal LV size; mild concentric LVH. There is mid-anterior, distal anterior hypokinesis and evidence of septal dyssynchrony. Otherwise normal wall motion where seen. EF is 40-45%. Normal diastolic dysfunction. Normal chamber sizes. Mitral valve leaflets are normal. There is trace mitral regurgitation. Tricuspid valve leaflets are normal; there is mild-moderate associated TR. Estimated PASP is 26 mm Hg assuming RA pressure of 5 mm Hg. No prior study available for comparison. Reading Physician:07:15 PM Additional Diagnostics EEG IMPRESSION: This EEG performed in the lethargic state is abnormal. It is limited by abundant myogenic and movement artifact and the single lead electrocardiogram demonstrating what appears to be a wide QRS complex is abnormal. If clinically indicated, recommend obtaining a 12-lead electrocardiogram. Review of this electroencephalogram reveals no evidence of focal, lateralized, or epileptiform discharges. No seizures were seen. Clinical correlation is advised. Joseph Rivera MD 11/06/162051 Assessment & Plan Patient is a 56 year old female with a history of hypertension and anxiety who presented to [facility] in respiratory then cardiac arrest. She is admitted to the ICU for hypothermia protocol. Hospital day 4 1. Cardiac arrest, acute, present on admission. resolved - Given wall motion abnormalities on echo and positive tox screen this is possibly related to a cocaine induced myocardial infarction - Hypothermia protocol initiated in the ED at 1015 on 11/06/16. - Patient rewarming initiated at 10 AM 11/07/2016 - Cardiology to take patient for cardiac catheterization in the next several days for evaluation of coronary artery disease - Heparin drip until cardiac catheterization 2. Acute hypoxic respiratory failure, present on admission. improving - Patient required mechanical ventilation during hypothermia protocol.. - Fentanyl and propofol use for sedation. - pulmonology/critical care has been consulted for ventilator management. - ABG PRN for vent adjustments. - Patient was extubated today with RT following likely patient will need oxygen support possibly third BiPAP for high flow nasal cannula - Stridorous wet breathing after extubation treated with dexamethasone 4 mg IV, racemic albuterol, scopolamine patch for several hours 3. Encephalopathy, acute, likely present on admission - Possible ischemic brain injury given unknown length of time down before CPR - Consider MRI without resolution after a day - Avoid [employer] sedation affecting drugs - We will limit scopolamine patch to this evening and removed before night - Haldol IV available for agitation and delirium overnight 4. Presume acute aspiration pneumonia, present on admission. - Food particles found when patient intubated. - Zosyn started in ED and will continue at this time. - Nasal MRSA screen ordered and pending. 5. Possible seizure activity, acute, present on admission. - Possibly secondary to anoxic brain injury. - Lorazepam drip initiated while intubated, discontinued after extubation - continue Levetiracetam and Lacosamine for possible seizure 6. Possible cocaine induced myocardial infarction, acute, present on admission. - Secondary to cardiac arrest and resuscitation efforts. - Echo ordered shows EF of 40-45% with diastolic dysfunction and mid to distal anterior wall motion abnormality with septal asynchrony - Dobutamine drip discontinued - Cardiology consulted and will take patient to cardiac quality control lab tech in the next several days 7. Possible lower GI bleed, acute, present on admission. - Patient passed guaiac positive stool with tint of blood in CCU. - Consider ischemic colitis secondary to hypoperfusion. - Heparin drip initiated for cardiac concerns will monitor for GI bleed - Protonix 40 mg IV BID. 7. Elevated transaminases, acute, present on admission. - Possibly secondary to shock liver related to hypoperfusion. May be a component of congestive hepatopathy secondary to stunned myocardium. - Continue to monitor CMP. 8. Acute kidney injury, present on admission. - Presume normal baseline. - Likely secondary to fluid depletion and possibly also hypoperfusion. - IV hydration ongoing per hypothermia protocol. - Continue to monitor BMP. 9. Alcohol dependence, chronic. - Reported significant alcohol use yesterday, 11/05/16. Alcohol level negative in ED. Presumed chronic alcohol use. - Lorazepam drip initiated. - Monitoring for withdrawal will be difficult as patient undergoing hypothermia protocol. 10. Anxiety with benzodiazepine dependence, chronic. - Home medication clonazepam 1 mg TID PRN. - Lorazepam drip initiated for management of seizure-like activity. 11. Polysubstance abuse, presume chronic. - Cocaine and marijuana positive urine tox. - Frequency of use unknown. 12. Hypertension, chronic, presume stable. - Home medication includes atenolol 50 mg BID. - Patient currently more hypotensive. Will hold home medication. - Antiemetic available PRN. - Bowel regimen available PRN. Disposition: Patient to remain in hospital for several more days given cardiology concerns and need for evaluation of encephalopathy. Pain Evaluation: Adequate Pain Control GI Prophylaxis: Proton Pump Inhibitor VTE Prophylaxis: SCDs, Other (heparin drip) VTE Mechanical Devices: Intermittant Pneumatic CD Resuscitation Status: CPR: Attempt Resuscitation Attending Statement The patient was seen and examined together with Dr. Diaz on 11/09/2016 and I agree with the history, exam and plan as outlined in the note above. . Adalid Diaz DO Nov 09, 2016 07:29 Osmany Schroeder MD Nov 09, 2016 19:17
[2016-11-09] MEDS ORDERED: Haloperidol 5 mg/mL Inj IVPUSH PRN (19:05)
[2016-11-09] MEDS: LEVETIRACETAM IV SCH (21:17)
[2016-11-09] MEDS: Heparin Protocol Boluses IVPUSH PRN (21:53)
[2016-11-10] VITALS (9 sets, daily range): BP systolic 137–161; BP diastolic 89–98; PULSE 86–102; RESP 14–24; O2SAT 92–95
[2016-11-10] MEDS: Chlorhexidine 0.12% 15 mL Oral Solution MT SCH (00:11)
--- NOTE | 2016-11-10 00:26 | PROG NOTE ---
[address] [address] PROGRESS NOTE PATIENT: MALGORZATA LOO : 1960 MR#: [id number] ADMIT: 11/06/2016 JOB ID: [id number] DATE: 11/09/2016 SUBJECTIVE: The patient remains intubated and sedated. She is doing sedation holidays and has shown evidence of purposeful movements. Also, her pressors were weaned off. PHYSICAL EXAM: Vital signs: Temp afebrile. Heart rate 101 beats per minute. Blood pressure 150/100, satting 97% on 35% FiO2. General: A well-nourished woman in no apparent distress. Eyes are closed. Moves slightly to voice. Lungs: Clear anteriorly. Heart: Normal S1, S2. No murmurs. ASSESSMENT AND PLAN: This is a 56-year-old woman with [id number] PA arrest, completed hypothermia protocol. Management complicated by acute kidney injury. She is showing evidence of purposeful movements and is doing well on breathing trial with pressure support. Once extubated, she would potentially do well with cardiac catheterization, but certainly want to make sure her mental status is better and she can meaningfully participate in the informed consent discussion. Cardiac medications: She is on heparin drip for paroxysmal atrial fibrillation that was briefly noted on admission. Once her pressure stabilizes, I will start her on GORDY inhibitor for management of her cardiomyopathy and low-dose beta lisha to prevent atrial fibrillation from coming back. Thank you very much for the opportunity to evaluate her.
[2016-11-10 05:15] LABS: BASOPHILS % (AUTO) 0.2 % (0-3); EOSINOPHILS % (AUTO) 0 % (0-5); MONOCYTES % (AUTO) 2.9 % (4-12); Mean Corpuscular Hemoglobin 29.7 pg (27.0-35.0); NEUTROPHILS % (AUTO) 86.4 % (40-74); Platelet Count 176 bil/L (150-400)
[2016-11-10 06:12] LABS: Magnesium 2.1 mg/dL (1.6-2.6); Phosphorus 3.9 mg/dL (2.5-4.9)
[2016-11-10] MEDS: MeTOProlol XL 25 mg ER24 Tablet PO SCH (08:30)
[2016-11-10] MEDS: LEVETIRACETAM IV SCH ×2 (09:30→21:34)
[2016-11-10] MEDS: Pantoprazole 4 mg/mL 10 mL Inj IVPUSH SCH ×2 (09:34→16:30)
[2016-11-10] MEDS: Piperacillin-Tazo 3.375 Gm Inj 3.375 GM in Dextrose 5% Minibag Plus 50 ML IV SCH ×2 (09:35→21:34)
--- NOTE | 2016-11-10 10:22 | NUR ---
Evaluation completed. Please go to "Notes" then click on "Assessments and Notes" (bottom left corner of screen). Then select appropriate discipline tab on top of screen.
--- NOTE | 2016-11-10 11:40 | NUR ---
Evaluation completed. Please go to "Notes" then click on "Assessments and Notes" (bottom left corner of screen). Then select appropriate discipline tab on top of screen.
[2016-11-10] MEDS ORDERED: 0.9% Sodium Chloride 250 ML ONE (14:11)
--- NOTE | 2016-11-10 15:46 | NUR ---
Social Work Note: Continued Discharge Planning Data& Assessment: Per MD in morning rounds, pt is medically improving. SW attempted to meet with pt and pt significant other at bedside to identify accurate insurance information, if any, for discharge planning purposes. Per RN, pt and pt significant other are sleeping and have not slept all weekend. RN requested SW return tomorrow to follow up with pt regarding discharge planning. PT is recommending SNF vs. Inpt rehab if pt becomes more appropriate. SW to continue to follow. Plan: Anticipated discharge to SNF vs. inpt rehab pending insurance verification. SW to follow up with pt regarding discharge planning and insurance information. SW to continue to follow. JOSE Cheung
--- NOTE | 2016-11-10 16:09 | PCM.PNMED ---
Subjective Date of Service Nov 10, 2016 Subjective Patient reports that she is feeling tired and sore. She has a sore throat with a hoarse voice. She states that she feels clearer mentally and has been visiting with various family members today. She is happy to be able to enjoy ice chips at this time. She was able to stand with physical therapy today and did feel weak on her feet still. Overnight, no major events reported. Exam Vital Signs Vital Sign - Last Date Time Temp Pulse Resp B/P Pulse Ox O2 Delivery O2 Flow Rate FiO2 11/10/16 08:50 79 14 93 Nasal Cannula 40 40 11/10/16 08:30 36.6 137/90 Intake and Output 11/09/16 11/09/16 11/10/16 Cumulative From/Thru 15:00 23:00 07:00 11/06/16 12:31 - 11/10/16 06:11 Intake Total 983 ml 559 ml 42526 ml Output Total 3950 ml 1000 ml 18087 ml Balance -2967 ml -441 ml 5834 ml Intake IV Total 953 ml 559 ml 98861 ml Tube Feeding 0 ml 153 ml Tube Irrigant 30 ml 320 ml Output Urine Total 3800 ml 950 ml 84213 ml Stool Total 150 ml 50 ml 525 ml Gastric Drainage Total 0 ml 700 ml # Bowel Movements 2 Exam Gen.: Patient sitting up in ICU bed, answering questions and following commands , alert to self and place but not time Eyes: Pupils equal round and reactive to light, anicteric sclera noninjected conjunctiva, EOMI HENT: No oral thrush appreciated, mucus membranes moist; nasal cannula in place Neck: supple without thyromegaly, no lymphadenopathy, no JVD appreciated; Right IJ in place Cardiovascular: Regular rate and rhythm without murmur Lungs: Mild expiratory wheezing noted in the anterior lung scott, good respiratory effort Abdomen: Normoactive bowel tones, soft, nontender, nondistended Extremities: Mild edema present in both hands; minimal lower extremity edema noted Radial pulses and dorsalis pedis pulses present and equal bilaterally : Sheth catheter in place Skin: erythematous pustules covered but present on left wrist where art line was present Neuro: Cranial nerves appear grossly intact, voice hoarse with slowed speech, can move all extremities grossly IVs and Medications Medications Reviewed: Medications were reviewed in detail Lab and Diagnostics Result Diagram: 3/26/17 0440 3/26/17 0440 X-Rays, CTs and MRIs PROCEDURE: X-RAY CHEST ONE VIEW, PORTABLE IMPRESSION: 1. The endotracheal tube is 4 cm above millicent. 2. Mild pulmonary edema. Dictated by: Carolyn Medina M.D. on 11/06/2016 at 12:38 PROCEDURE: CT BRAIN WITHOUT CONTRAST IMPRESSION: 1. No acute intracranial abnormalities. Dictated by: Carolyn Medina M.D. on 11/06/2016 at 12:17 Cardiac Echo Impressions Echocardiogram Report Interpretation Summary Normal sinus rhythm. Wide QRS complexes. Normal LV size; mild concentric LVH. There is mid-anterior, distal anterior hypokinesis and evidence of septal dyssynchrony. Otherwise normal wall motion where seen. EF is 40-45%. Normal diastolic dysfunction. Normal chamber sizes. Mitral valve leaflets are normal. There is trace mitral regurgitation. Tricuspid valve leaflets are normal; there is mild-moderate associated TR. Estimated PASP is 26 mm Hg assuming RA pressure of 5 mm Hg. No prior study available for comparison. Reading Physician:07: 15 PM Additional Diagnostics EEG IMPRESSION: This EEG performed in the lethargic state is abnormal. It is limited by abundant myogenic and movement artifact and the single lead electrocardiogram demonstrating what appears to be a wide QRS complex is abnormal. If clinically indicated, recommend obtaining a 12-lead electrocardiogram. Review of this electroencephalogram reveals no evidence of focal, lateralized, or epileptiform discharges. No seizures were seen. Clinical correlation is advised. Joseph Rivera MD 11/06/162051 Assessment & Plan Patient is a 56 year old female with a history of hypertension and anxiety who presented to [facility] in respiratory then cardiac arrest. She is admitted to the ICU for hypothermia protocol. Hospital day 5 1. Cardiac arrest, acute, present on admission. resolved - Given wall motion abnormalities on echo and positive tox screen this is possibly related to a cocaine induced myocardial infarction - Hypothermia protocol initiated in the ED at 1015 on 11/06/16. Patient rewarming initiated at 10 AM 11/07/2016 and concluded by 0200 on 11/08/16. - Cardiology has been consulted and we appreciate their input. - Cardiology to take patient for cardiac catheterization in the next several days for evaluation of coronary artery disease. - Heparin drip until cardiac catheterization. 2. Acute hypoxic respiratory failure, present on admission. improving - Patient successfully extubated on 11/09/16. - Currently tolerating O2 supplementation via nasal cannula. O2 goals 92-96% at this time. BiPAP to be used as needed. - Ongoing speech therapy to assess swallowing ability. 3. Encephalopathy, acute, likely present on admission, improving. - Possible ischemic brain injury given unknown length of time down before CPR - Avoid [employer]ER sedation affecting drugs - Continue physical and occupational therapy and reorientation by family and staff. - Encourage normal sleep/wake cycles. 4. Presume acute aspiration pneumonia, present on admission. - Food particles found when patient intubated. - Continue Zosyn (day 5 of 7 day course). 5. Possible seizure activity, acute, present on admission. - Possibly secondary to anoxic brain injury. - Lorazepam drip initiated while intubated, discontinued after extubation - Continue Levetiracetam and Lacosamine for possible seizure. 6. Possible cocaine induced myocardial infarction, acute, present on admission. - Echo ordered shows EF of 40-45% with diastolic dysfunction and mid to distal anterior wall motion abnormality with septal asynchrony - Dobutamine drip discontinued - Cardiology consulted and will take patient to cardiac picket labor union in the next several days - Metoprolol succinate 25 mg daily started. 7. Possible lower GI bleed, acute, present on admission, improving. - Patient passed guaiac positive stool with tint of blood in CCU. - Consider ischemic colitis secondary to hypoperfusion. - Heparin drip initiated for cardiac concerns will monitor for GI bleed - Protonix 40 mg IV BID. 8. Elevated transaminases, acute, present on admission, improving. - Possibly secondary to shock liver related to hypoperfusion. May be a component of congestive hepatopathy secondary to stunned myocardium. - Continue to monitor CMP. 9. Acute kidney injury, present on admission, improving. - Presume normal baseline. - Likely secondary to fluid depletion and possibly also hypoperfusion. - Continue to monitor BMP. 10. Alcohol dependence, chronic. - Reported significant alcohol use yesterday, 11/05/16. Alcohol level negative in ED. Presumed chronic alcohol use. - Lorazepam drip used while intubated. - As patient is awake now, will monitor closely for any signs of withdrawal. As it is hospital day five, patient is likely through the worst of a withdrawal. 11. Anxiety with benzodiazepine dependence, chronic. - Home medication clonazepam 1 mg TID PRN. - Lorazepam drip utilized during intubation and stopped on 11/09/16. Will re- start clonazepam PRN. 12. Polysubstance abuse, presume chronic. - Cocaine and marijuana positive urine tox. - Frequency of use unknown. 13. Hypertension, chronic, presume stable. - Home medication includes atenolol 50 mg BID. - Patient started on metoprolol succinate 25 mg daily. Will monitor for effect. - Antiemetic available PRN. - Bowel regimen available PRN. Disposition: Patient to remain in hospital for several more days given cardiology concerns and need for more intensive rehabilitation therapies. Pain Evaluation: Adequate Pain Control GI Prophylaxis: Proton Pump Inhibitor VTE Prophylaxis: SCDs, Other (heparin drip) VTE Mechanical Devices: Intermittant Pneumatic CD Resuscitation Status: CPR: Attempt Resuscitation Attending Statement The patient was seen and examined together with Dr. Del Cid on 11/10/2016 and I agree with the history, exam and plan as outlined in the note above. . Nancie Del Cid DO Nov 10, 2016 10:12 Osmany Schroeder MD Nov 10, 2016 18:32
--- NOTE | 2016-11-10 18:00 | NUR ---
Neuro/Progressive mobility Neuro status improving; able to verbalize words today; still impulsive though intermittently now following commands. Knows date, age, recognizes and siblings. See documentation re swallow eval. Worked won fine motor skills today; not able to brush her teeth, does not yet seem to know how to reach for rails to turn, cognition improving as day progressed. Safety priority; adalid alarm on. Up several times to dangling position w/ 2 person assist; stood momentarily w/ PT & 3person assist, not able to support core or stand safely as yet. attempted to lift into chair without success; no mendes chair avail. Continue active ROM & q2h nurse-guided OT/PT rehab skills, active ROM.
[2016-11-10] MEDS ORDERED: HYDROmorphone 0.5 mg/0.5 mL iSecure Syringe IVPUSH ONE ×2 (21:25→21:30)
[2016-11-11] VITALS (11 sets, daily range): BP systolic 142–162; BP diastolic 85–100; PULSE 74–102; RESP 16–22; O2SAT 94–99
[2016-11-11] MEDS: Heparin Protocol Boluses IVPUSH PRN ×3 (01:36→22:33)
--- NOTE | 2016-11-11 01:58 | PROG NOTE ---
[address] [address] PROGRESS NOTE PATIENT: MALGORZATA LOO : 1960 MR#: [id number] ADMIT: 11/06/2016 JOB ID: [id number] DATE: 11/10/2016 CHIEF COMPLAINT: [id number] cardiac arrest. SUBJECTIVE: The patient was extubated this morning. She is able to follow commands and verbalize words. Sometimes she is impulsive and has difficulty with following commands. She is working with range of motion, but as far as sitting up she requires two person assist for that. Right now, she says she is comfortable, she has no complaints at this moment in time when she is lying on her side. OBJECTIVE: Vital signs: Temperature 36.6, up to 37 degrees. Blood pressure 137/90, up to 161/98. Pulse 79, up to 103 beats per minute. She satting 92% to 95% on 3 L nasal cannula. Overweight woman in no apparent distress. Eyes: No scleral icterus. Heart: Normal S1, S2. No murmurs. Lungs: Clear to auscultation anteriorly. Abdomen: Soft, positive bowel sounds. No hepatosplenomegaly. Extremities: Warm well perfused. No clubbing, cyanosis, or edema. Skin: No rashes or lesions. LABORATORIES: Reviewed. CBC shows mildly elevated white count at 13 with left shift. Creatinine is 1. Transaminases are improving. ALT is 159, AST 48. ProBNP elevated. Albumin is better at 3.6. CURRENT MEDICATIONS: She is on: 1. Keppra. 2. Clonazepam. 3. Zosyn. 4. Vimpat. 5. Protonix injections. 6. Toprol-XL 25 mg daily. 7. Heparin drip per ACS protocol. ASSESSMENT AND PLAN: A 56-year-old woman with [id number] pulseless electrical activity arrest in atrial fibrillation, briefly , currently in normal sinus rhythm. 1. Paroxysmal AFib: On heparin drip. Recommend anticoagulation for at least a month after AFib occurred, which would be until December 07, 2016. Right now, she is on heparin drip because we are looking at doing a cardiac catheterization for newly diagnosed cardiomyopathy and [id number] PEA arrest. 2. Cardiomyopathy: Her blood pressure is stable. Toprol-XL was not started because she is having difficulty tolerating medications that require being swallowed. Will see how she does on this medication tomorrow, and if she does well, then can potentially offer her beta-lisha when she leaves the premises as long as she contracts for safety and says she will not use cocaine because that can cause unopposed alpha blockade and uncontrolled hypertension. 3. Coronary artery disease risk factors: There are no recent lipids available for review, and I will take the liberty of ordering those with morning labs. 4. Elevated troponin T: it peaked at 0.041 in the setting of renal insufficiency and an [id number] cardiac arrest with chest compressions, so I do not think it represents plaque rupture. 5. Cardiomyopathy. Most recent ejection fraction was 40% to 45% as of November 11, 2016, with no significant valvular abnormalities. If her mental status gets better, I think it is reasonable to think about two possible strategies to assist her cardiomyopathy and her need for cardiac catheterization. We could repeat a limited echocardiogram and see if it is getting better, or we could just go ahead and perform cardiac catheterization. I understand that right now she is still on heparin drip for paroxysmal AFib and we have not started her on oral anticoagulation specifically because she might have cardiac catheterization coming up. I, of course, deferred to the partner who is taking over to decide whether they want to pursue left heart cath as patient's mental status improves and she is able to participate in this dialogue in a meaningful way. Thank you for the opportunity to evaluate this patient.
[2016-11-11 04:59] LABS: BASOPHILS % (AUTO) 0.2 % (0-3); EOSINOPHILS % (AUTO) 1.1 % (0-5); MONOCYTES % (AUTO) 8.8 % (4-12); Mean Corpuscular Hemoglobin 29.1 pg (27.0-35.0); Mean Corpuscular Volume 91.1 fL (81-100); NEUTROPHILS % (AUTO) 62.2 % (40-74); Platelet Count 145 bil/L (150-400)
--- NOTE | 2016-11-11 05:26 | NUR ---
Pain/Bed mobility Pt drowsy with on and off restlessness in bed. Pt shows improved ability to turn independently over course of shift. Pt able to turn completely from left to right side independently in bed slowly. Pt c/o back pain, especially when turning. MD alerted, orders received for one time dose of dilaudid. Pt continues to improve with clearer speech as well as clearer thought pattern. Some inappropriate questions at times, but remains oriented x3.
[2016-11-11 05:27] LABS: Magnesium 2.1 mg/dL (1.6-2.6); Phosphorus 2.8 mg/dL (2.5-4.9)
[2016-11-11] MEDS ORDERED: HYDROmorphone 0.5 mg/0.5 mL iSecure Syringe IVPUSH ONE (05:40)
[2016-11-11] MEDS: Heparin 25K Unit/500mL 0.45 NS 25,000 UNIT in IV Premix 1 EACH IV SCH (06:39)
[2016-11-11] MEDS: Pantoprazole 4 mg/mL 10 mL Inj IVPUSH SCH ×2 (07:49→17:28)
[2016-11-11] MEDS: Piperacillin-Tazo 3.375 Gm Inj 3.375 GM in Dextrose 5% Minibag Plus 50 ML IV SCH ×2 (07:50→21:32)
[2016-11-11] MEDS: MeTOProlol XL 25 mg ER24 Tablet PO SCH (07:50)
[2016-11-11] MEDS: LEVETIRACETAM IV SCH (07:56)
--- NOTE | 2016-11-11 09:48 | NUR ---
TRANSFER/swallow/plan/ 799 orders received to transfer out of CCU. Pt tolerates meds crushed in pudding well. Recommended to Dr to order physical therapy and something for pain.
--- NOTE | 2016-11-11 13:56 | NUR ---
NUTRITION FOLLOW-UP: ASSESS: 56 YO F admitted for respiratory arrest prior to arrival, intubated in the field, exhibiting PEA. Hypothermia protocol completed. Enteral feeding discontinued s/p extubation 11/09. Pt remains NPO per speech therapy. PMHx: Anxiety, HTN, polysubstance abuse. DIET: NPO. ENTERAL FEEDING: (STOPPED) Jevity 1.5 @ trophic rate 10 ml/hr. LABS: Cr 1.02, ALT 102, Alb 3.1, TG 164 MEDICATIONS: Reviewed. GI: BM x 1 (11/10). SKIN: No issues as yet documented. ANTHROPOMETRICS: Current Wt: 88.9 kg, BMI 33.6 kg/m2. Admit weight: 75.0 kg, IBW: 54.5 kg (137.5% IBW) ESTIMATED NEEDS: Calories: 7549-2079 kcal/day (25-30 kcal/kg BW) Protein: 75-90 g/day (1.0-1.2 g/kg BW) Fluid: Approx. 2250 mL (30 mL/kg BW) NUTRITION DIAGNOSIS: 1) Inadequate oral intake related to inability to consume sufficient energy, as evidenced by NPO/vent status - PERSISTS FOLLOWING EXTUBATION. INTERVENTION: 1) Diet advancement per speech therapy. MONITOR/EVALUATE: NPO status, diet advance vs nutrition support, labs, GI/nutrition status. Follow per high nutrition risk guidelines.
--- NOTE | 2016-11-11 15:27 | NUR ---
Evaluation completed. Please go to "Notes" then click on "Assessments and Notes" (bottom left corner of screen). Then select appropriate discipline tab on top of screen.
--- NOTE | 2016-11-11 15:50 | NUR ---
transfer out of CCU/ swallow eval/chest pain 0800 orders received to transfer out of CCU. No bed available at this time. Pt advanced to soft diet after swallow eval. Pt complained of chest/rib pain. Treated and relieved with morphine and SL nitroglycerin. No ecg changes. Probably musculoskeletal from chest compressions. Pt is alert and oriented but forgetful and impulsive at times
[2016-11-11] MEDS ORDERED: Potassium Phos (mEq) Inj 40 MEQ in Dextrose 5% 500 ML IV ONE (15:55)
--- NOTE | 2016-11-11 19:46 | PCM.PNMED ---
Subjective Date of Service Nov 11, 2016 Subjective overnight: Patient received 1 dose of Dilaudid for likely chest and back pain consistent with CPR resuscitation. Today: The patient was noted to have an irregular ST segment on telemetry, on questioning the patient stated she was having chest and back pain. An EKG performed at that time failed to show any new abnormalities inconsistent with prior EKGs. The patient continues to have some mental delay, that is improving slowly from prior days. Exam Vital Signs Vital Sign - Last Date Time Temp Pulse Resp B/P Pulse Ox O2 Delivery O2 Flow Rate FiO2 11/11/16 04:52 36.9 85 16 151/96 97 Nasal Cannula 3.00 11/10/16 08:50 40 Intake and Output 11/10/16 11/10/16 11/11/16 Cumulative From/Thru 15:00 23:00 07:00 11/06/16 12:31 - 11/11/16 05:24 Intake Total 681 ml 581 ml 23236 ml Output Total 1000 ml 700 ml 89210 ml Balance -319 ml -119 ml 5396 ml Intake Oral 0 ml 0 ml IV Total 681 ml 581 ml 73351 ml Tube Feeding 153 ml Tube Irrigant 320 ml Output Urine Total 900 ml 700 ml 39753 ml Stool Total 100 ml 625 ml Gastric Drainage Total 700 ml # Bowel Movements 1 3 Exam Gen.: Alert Middle-aged female lying quietly in bed in no acute distress Eyes: Pupils equal round and reactive to light, anicteric sclera noninjected conjunctiva HENT: Normocephalic atraumatic, moist mucous membranes without central cyanosis , no cobblestone mucosa Neck: supple without thyromegaly, no lymphadenopathy, no JVD appreciated; Right IJ in place Cardiovascular: Regular rate and rhythm without murmur rubs or gallops Lungs: Very mild coarse breath sounds heard in the axillary bases bilaterally clear and all other lung scott, no wheezing noted Abdomen: Normoactive bowel tones with nondistended abdomen, soft, no organomegaly noted tympanic to percussion Extremities: Radial pulses and dorsalis pedis pulses equal bilaterally No clubbing or edema : Sheth catheter in place Neuro: Cranial nerves appear grossly intact, voice hoarse with slowed speech, can move all extremities grossly Psych: Normal mood and flat affect Lab and Diagnostics Result Diagram: 11/11/16 0456 11/11/16 0456 Microbiology Urine culture has no growth to date. Sputum culture growing scant normal alexis. Blood culture 2 has no growth after 24 hours. MRSA screen negative. Stool occult blood positive. . X-Rays, CTs and MRIs PROCEDURE: X-RAY CHEST ONE VIEW, PORTABLE IMPRESSION: 1. The endotracheal tube is 4 cm above millicent. 2. Mild pulmonary edema. Dictated by: Carolyn Medina M.D. on 11/06/2016 at 12:38 PROCEDURE: CT BRAIN WITHOUT CONTRAST IMPRESSION: 1. No acute intracranial abnormalities. Dictated by: Carolyn Medina M.D. on 11/06/2016 at 12:17 Cardiac Echo Impressions Echocardiogram Report Interpretation Summary Normal sinus rhythm. Wide QRS complexes. Normal LV size; mild concentric LVH. There is mid-anterior, distal anterior hypokinesis and evidence of septal dyssynchrony. Otherwise normal wall motion where seen. EF is 40-45%. Normal diastolic dysfunction. Normal chamber sizes. Mitral valve leaflets are normal. There is trace mitral regurgitation. Tricuspid valve leaflets are normal; there is mild-moderate associated TR. Estimated PASP is 26 mm Hg assuming RA pressure of 5 mm Hg. No prior study available for comparison. Reading Physician:07: 15 PM Additional Diagnostics EEG IMPRESSION: This EEG performed in the lethargic state is abnormal. It is limited by abundant myogenic and movement artifact and the single lead electrocardiogram demonstrating what appears to be a wide QRS complex is abnormal. If clinically indicated, recommend obtaining a 12-lead electrocardiogram. Review of this electroencephalogram reveals no evidence of focal, lateralized, or epileptiform discharges. No seizures were seen. Clinical correlation is advised. Joseph Rivera MD 11/06/162051 Assessment & Plan Patient is a 56 year old female with a history of hypertension and anxiety who presented to [facility] in respiratory then cardiac arrest. She is admitted to the ICU for hypothermia protocol. Hospital day 6 1. Cardiac arrest, acute, present on admission. resolved - Given wall motion abnormalities on echo and positive tox screen this is possibly related to a cocaine induced myocardial infarction - Hypothermia protocol initiated in the ED at 1015 on 11/06/16. Patient rewarming initiated at 10 AM 11/07/2016 and concluded by 0200 on 11/08/16. - Cardiology has been consulted and we appreciate their input. - Cardiology to take patient for cardiac catheterization in the next several days for evaluation of coronary artery disease. - Heparin drip until cardiac catheterization decision is made cardiology is currently evaluating whether her catheterization is necessary or if they should simply repeat a limited echo for improvement in walking wall motion abnormality 2. Acute hypoxic respiratory failure, present on admission. improving - Patient successfully extubated on 11/09/16. - Currently tolerating O2 supplementation via nasal cannula. O2 goals 92-96% at this time. BiPAP to be used as needed. - Ongoing speech therapy to assess swallowing ability. 3. Encephalopathy, acute, likely present on admission, improving. - Possible ischemic brain injury given unknown length of time down before CPR - Avoid COMBER OPERATOR sedation affecting drugs - Continue physical and occupational therapy and reorientation by family and staff. - Encourage normal sleep/wake cycles. 4. Presume acute aspiration pneumonia, present on admission. - Food particles found when patient intubated. - Continue Zosyn (day 6 of 7 day course). 5. Possible seizure activity, acute, present on admission. - Possibly secondary to anoxic brain injury. - Lorazepam drip initiated while intubated, discontinued after extubation - Continue Levetiracetam and Lacosamine for possible seizure. 6. Possible cocaine induced myocardial infarction, acute, present on admission. - Echo ordered shows EF of 40-45% with diastolic dysfunction and mid to distal anterior wall motion abnormality with septal asynchrony - Dobutamine drip discontinued - Cardiology consulted and will discuss with patient the need for possible cardiac catheterization versus repeating a limited echo and checking for resolution of the wall motion abnormality - Metoprolol XL 25 mg by mouth as patient tolerates 7. Possible lower GI bleed, acute, present on admission, improving. - Patient passed guaiac positive stool with tint of blood in CCU. - Consider ischemic colitis secondary to hypoperfusion. - Heparin drip initiated for cardiac concerns will monitor for GI bleed - Protonix 40 mg IV BID. 8. Elevated transaminases, acute, present on admission, improving. - Possibly secondary to shock liver related to hypoperfusion. May be a component of congestive hepatopathy secondary to stunned myocardium. - Continue to monitor CMP. 9. Acute kidney injury, present on admission, improving. - Presume normal baseline. - Likely secondary to fluid depletion and possibly also hypoperfusion. - Continue to monitor BMP. 10. Alcohol dependence, chronic. - Reported significant alcohol use yesterday, 11/05/16. Alcohol level negative in ED. Presumed chronic alcohol use. - Lorazepam drip used while intubated. - As patient is awake now, will monitor closely for any signs of withdrawal. As it is hospital day five, patient is likely through the worst of a withdrawal. 11. Anxiety with benzodiazepine dependence, chronic. - Home medication clonazepam 1 mg TID PRN. - Lorazepam drip utilized during intubation and stopped on 11/09/16. Will re- start clonazepam PRN. 12. Polysubstance abuse, presume chronic. - Cocaine and marijuana positive urine tox. - Frequency of use unknown. 13. Hypertension, chronic, presume stable. - Home medication includes atenolol 50 mg BID. - Patient started on metoprolol succinate 25 mg daily. Will monitor for effect. - Antiemetic available PRN. - Bowel regimen available PRN. Disposition: Patient to remain in hospital for several more days given cardiology concerns and need for more intensive rehabilitation therapies. GI Prophylaxis: Proton Pump Inhibitor VTE Prophylaxis: SCDs, Other (heparin drip) VTE Mechanical Devices: Intermittant Pneumatic CD Resuscitation Status: CPR: Attempt Resuscitation Attending Statement The patient was seen and examined together with Dr. Diaz on 11/11/2016 and I agree with the history, exam and plan as outlined in the note above. . Adalid Diaz DO Nov 11, 2016 06:54 Osmany Schroeder MD Nov 15, 2016 08:49
[2016-11-11] MEDS: levETIRAcetam Inj 1,500 MG in 0.9% Sodium Chloride 100 ML IV SCH (20:07)
[2016-11-11] MEDS ORDERED: SODIUM CHLORIDE 0.9% IV SCH (20:30)
[2016-11-11] MEDS ORDERED: LEVETIRACETAM IV SCH (20:30)
[2016-11-12] VITALS (14 sets, daily range): BP systolic 138–172; BP diastolic 81–114; PULSE 79–92; RESP 17–21; O2SAT 92–98
[2016-11-12] MEDS: Heparin 25K Unit/500mL 0.45 NS 25,000 UNIT in IV Premix 1 EACH IV SCH (00:23)
--- NOTE | 2016-11-12 00:46 | NUR ---
confusion pt climbing out of bed pulled saucedo out and part of her central line, called received order to let pt try and void with out saucedo if unable to then bladder scan and replace saucedo if need. redressed central line and getting x-ray for placement. reorientated pt and she states she woke up and thinking she needed to get out of bed, bed alarm on Addendum: 11/12/16 at 0636 by BRADLEY FAIRCHILD RN reviewed central line placement ok to use and draw from. pt hasn't tried to get out of bed again or pulling at line, pt voiding multi times per bedpan
[2016-11-12 05:12] LABS: BASOPHILS % (AUTO) 0.5 % (0-3); EOSINOPHILS % (AUTO) 2.7 % (0-5); MONOCYTES % (AUTO) 14.2 % (4-12); Mean Corpuscular Hemoglobin 29.5 pg (27.0-35.0); Mean Corpuscular Volume 88.4 fL (81-100); NEUTROPHILS % (AUTO) 57.6 % (40-74); Platelet Count 150 bil/L (150-400)
[2016-11-12 05:24] LABS: INR 1.03 ratio
[2016-11-12 05:37] LABS: Magnesium 1.9 mg/dL (1.6-2.6); Phosphorus 4.2 mg/dL (2.5-4.9)
--- NOTE | 2016-11-12 06:36 | NUR ---
UOP pt pulled saucedo out emptied 3000cc of urine from that then pt using the bed casillas and put out another 1550cc for a total of 4550cc of urine out put this shift.
[2016-11-12] MEDS ORDERED: Potassium Chloride 20 mEq SR Tablet PO ONE (07:20)
[2016-11-12] MEDS: MeTOProlol XL 25 mg ER24 Tablet PO SCH (08:03)
[2016-11-12] MEDS: levETIRAcetam Inj 1,500 MG in 0.9% Sodium Chloride 100 ML IV SCH ×2 (08:03→19:57)
[2016-11-12] MEDS: Piperacillin-Tazo 3.375 Gm Inj 3.375 GM in Dextrose 5% Minibag Plus 50 ML IV SCH (08:03)
[2016-11-12] MEDS: Pantoprazole 4 mg/mL 10 mL Inj IVPUSH SCH (08:03)
--- NOTE | 2016-11-12 09:28 | DRSVH ---
PROCEDURE: X-RAY CHEST ONE VIEW, PORTABLE ([id number]) INDICATIONS: LINE PLACEMENT TECHNIQUE: One view of the chest was acquired. COMPARISON: [facility], CR, XR CHEST 1VW (PORTABLE), 11/09/2016, 4:55. FINDINGS: Surgical changes and devices: Right IJ CVL has been slightly retracted in the interval tip projected over the upper SVC. Lungs and pleura: Decrease in bibasilar airspace opacities which have not resolved. Small left pleur al effusion. No pneumothorax. Mediastinum: Mediastinal contours appear normal. Heart size is normal. Bones and chest wall: No suspicious bony lesions. Overlying soft tissues appear unremarkable. IMPRESSION: 1. Slight retraction of right IJ CVL. 2. Decrease in bibasilar airspace opacities and small residual left pleural effusion. Dictated by: Kei Glynn [facility] Interpreted: Carolyn Medina MD on 11/12/2016 at 9:27 Transcribed by: OMERO on 11/12/2016 at 9:28 Approved by: Carolyn Medina M.D. on 11/12/2016 at 11:09
[2016-11-12] MEDS: 0.9% Sodium Chloride 1,000 ML IV SCH ×2 (10:15→20:15)
[2016-11-12] MEDS ORDERED: Heparin 1,000 Units/500 mL NS Premix IV ONE (11:37)
[2016-11-12] MEDS ORDERED: Nitroglycerin 50,000 mcg/250 mL D5W Premix IV ONE (11:37)
[2016-11-12] MEDS ORDERED: Heparin 1,000 Unit/mL 10 mL Inj ONE (11:37)
[2016-11-12] MEDS ORDERED: 0.9% Sodium Chloride 1,000 ML ONE (11:37)
[2016-11-12] MEDS ORDERED: fentaNYL-PF 50 mCg/mL 2 mL Inj ONE (12:47)
--- NOTE | 2016-11-12 13:48 | CS94 ---
[address] [address] DIAGNOSTIC CARDIAC CATHETERIZATION PATIENT: MALGORZATA LOO : 1960 MR#: [id number] ADMIT: 11/06/2016 JOB ID: [id number] SERVICE DATE: 11/12/2016 PATIENT PROFILE: The patient is a 56-year-old lady who presented with out of hospital PEA arrest. PROCEDURE: 1. Retrograde left heart catheterization. 2. Selective coronary angiography. 3. Left ventricular angiogram. 4. Vascular closure device: StarClose. COMPLICATION: None. METHOD: Retrograde left heart catheterization was performed from the right groin under 1% lidocaine local anesthesia using a 6-Chadian sheath. Selective coronary angiogram was performed in multiple projections, including cranial and caudal angulations with hand injected contrast via JL4 and 3DRC catheters. A 6-Chadian angulated pigtail catheter was advanced to the left ventricle and left ventricular angiogram was performed in the 30-degree WEBB view by injecting contrast at the rate of 10 cc/second for 3 seconds. This catheter was withdrawn. Right femoral angiogram was performed. Following sheath removal, hemostasis was achieved by using a StarClose device. The patient tolerated procedure well. She was transferred to [facility] in good condition. TOTAL CONTRAST USED: 60 cc. FLUOROSCOPY TIME: 1.3 minutes. TOTAL RADIATION DOSE: 253 milligray. RESULTS: 1. Selective coronary angiogram: a. Left main coronary artery is normal. b. The left anterior descending artery has eccentric 50% stenosis in the proximal portion. The first diagonal branch is large and has 40% stenosis in the proximal portion. c. The circumflex artery and its obtuse marginal branch are normal. d. The dominant right coronary artery is normal. 2. Left ventricular angiogram demonstrated near-normal left ventricular systolic function. There is mild hypokinesis of the basal inferior wall. The remaining segments contract normally. 3. There is no gradient across the aortic valve on catheter withdrawal. 4. Aortic pressure is 150/92 mmHg. Left ventricular pressure is 153/6 mmHg. 5. Left ventricular end-diastolic pressure is 17 mmHg. CONCLUSION: 1. Moderate disease of the left anterior descending and first diagonal branch. 2. LVEF 55 - 60%. 3. LVEDP is 17 mmHg. MTDD
--- NOTE | 2016-11-12 15:23 | NUR ---
Pt. unavailable for OT session this afternoon as she was out of room for test. Will return today or tomorrow as able.
[2016-11-12] MEDS: Pantoprazole 40 mg ER24 Tablet PO SCH (16:30)
--- NOTE | 2016-11-12 17:33 | NUR ---
Patient Service Technician Pst/Saucedo/Bedrest The pt left for angio in the manager labor relations at 1230, and returned to the unit at 1600. Prior to leaving the unit, a saucedo was placed per protocol, and the procedure/bedrest was explained to the pt and her significant other. After arriving back to the unit, the pt proceeded to remove her saucedo catheter (balloon intact) because it "was uncomfortable", and she "wanted to go to the bathroom". The claims he pulled the saucedo for her as it "was all tangled up", then proceeded to walk the pt to the bathroom despite the clear bedrest instructions on the whiteboard. The pt was re-told of the importance of bedrest, and q15 min checks on the groin site and the pedal pulse were initiated. The pt was told that she is to be on bedrest until 1900 for bleeding precautions. The family was educated, as well as the patient, as to why this bedrest is important, and it is written on the white board. The pt, and her significant other, verbally agreed to abide by the bedrest.
--- NOTE | 2016-11-12 19:10 | PCM.PNMED ---
Subjective Date of Service Nov 12, 2016 Subjective overnight: Patient pulled her Sheth overnight and was attempting to pull her central line when nursing caught her. No acute interventions otherwise noted. Today: The patient states that she would like to go home today. It was reiterated to her the cardiology was possibly considering taking her to the cardiac lab aide versus performing an echocardiogram. Cardiology later discussed with the patient and it was agreed upon that the patient will be taken to the cardiac lab aide later today. Exam Vital Signs Vital Sign - Last Date Time Temp Pulse Resp B/P Pulse Ox O2 Delivery O2 Flow Rate FiO2 11/12/16 07:39 36.9 20 157/114 98 Nasal Cannula 3.00 11/12/16 03:00 79 11/11/16 12:22 40 Intake and Output 11/11/16 11/11/16 11/12/16 Cumulative From/Thru 15:00 23:00 07:00 11/06/16 12:31 - 11/12/16 06:16 Intake Total 806 ml 1434 ml 78089 ml Output Total 4550 ml 53049 ml Balance 806 ml -3116 ml 3086 ml Intake Oral 400 ml 400 ml IV Total 806 ml 1034 ml 88009 ml Tube Feeding 153 ml Tube Irrigant 320 ml Output Urine Total 4550 ml 01566 ml Stool Total 625 ml Gastric Drainage Total 700 ml # Bowel Movements 1 4 Exam Gen.: Alert Middle-aged female lying quietly in bed in no acute distress Eyes: Pupils equal round and reactive to light, anicteric sclera noninjected conjunctiva HENT: Normocephalic atraumatic, moist mucous membranes without central cyanosis , no cobblestone mucosa Neck: supple without thyromegaly, no lymphadenopathy, no JVD appreciated; Right IJ in place Cardiovascular: Regular rate and rhythm without murmur rubs or gallops Lungs: Very mild coarse breath sounds heard in the axillary bases bilaterally clear and all other lung scott, no wheezing noted Abdomen: Normoactive bowel tones with nondistended abdomen, soft, no organomegaly noted tympanic to percussion Extremities: Radial pulses and dorsalis pedis pulses equal bilaterally No clubbing or edema : Sheth catheter in place Neuro: Cranial nerves appear grossly intact, voice hoarse with slowed speech, can move all extremities grossly, mild to moderate dysdiadochokinesia noted in upper extremities MSK: Strength intact bilaterally and analytics developer, bicep, tricep, plantar and dorsi flexion as well as knee extension. Psych: Normal mood and flat affect IVs and Medications Medications Reviewed: Medications were reviewed in detail Lab and Diagnostics Result Diagram: 11/12/1642911/12/16429 Microbiology Urine culture has no growth to date. Sputum culture growing scant normal alexis. Blood culture 2 has no growth after 24 hours. MRSA screen negative. Stool occult blood positive. . X-Rays, CTs and MRIs PROCEDURE: X-RAY CHEST ONE VIEW, PORTABLE IMPRESSION: 1. The endotracheal tube is 4 cm above millicent. 2. Mild pulmonary edema. Dictated by: Carolyn Medina M.D. on 11/06/2016 at 12:38 PROCEDURE: CT BRAIN WITHOUT CONTRAST IMPRESSION: 1. No acute intracranial abnormalities. Dictated by: Carolyn Medina M.D. on 11/06/2016 at 12:17 Cardiac Echo Impressions Echocardiogram Report Interpretation Summary Normal sinus rhythm. Wide QRS complexes. Normal LV size; mild concentric LVH. There is mid-anterior, distal anterior hypokinesis and evidence of septal dyssynchrony. Otherwise normal wall motion where seen. EF is 40-45%. Normal diastolic dysfunction. Normal chamber sizes. Mitral valve leaflets are normal. There is trace mitral regurgitation. Tricuspid valve leaflets are normal; there is mild-moderate associated TR. Estimated PASP is 26 mm Hg assuming RA pressure of 5 mm Hg. No prior study available for comparison. Reading Physician:07: 15 PM Additional Diagnostics EEG IMPRESSION: This EEG performed in the lethargic state is abnormal. It is limited by abundant myogenic and movement artifact and the single lead electrocardiogram demonstrating what appears to be a wide QRS complex is abnormal. If clinically indicated, recommend obtaining a 12-lead electrocardiogram. Review of this electroencephalogram reveals no evidence of focal, lateralized, or epileptiform discharges. No seizures were seen. Clinical correlation is advised. Joseph Rivera MD 11/06/162051 DIAGNOSTIC CARDIAC CATHETERIZATION CONCLUSION: 1. Moderate disease of the left anterior descending and first diagonal branch. 2. LVEF 55%, 60%. 3. LVEDP is 17 mmHg. Antonina Vang MD 11/12/16 1311 Assessment & Plan Patient is a 56 year old female with a history of hypertension and anxiety who presented to [facility] in respiratory then cardiac arrest. She is admitted to the ICU for hypothermia protocol. Hospital day 6 1. Cardiac arrest, acute, present on admission. resolved - Given wall motion abnormalities on echo and positive tox screen this is possibly related to a cocaine induced myocardial infarction - Hypothermia protocol initiated in the ED at 1015 on 11/06/16. Patient rewarming initiated at 10 AM 11/07/2016 and concluded by 0200 on 11/08/16. - Cardiology has been consulted and we appreciate their input. - Cardiology to take patient for cardiac catheterization in the next several days for evaluation of coronary artery disease. - Heparin drip until cardiac catheterization - Diagnostic cardiac catheterization shows moderate coronary artery disease of the left anterior descending coronary artery as well as first diagonal 2. Acute hypoxic respiratory failure, present on admission. improving - Patient successfully extubated on 11/09/16. - Currently tolerating O2 supplementation via nasal cannula. O2 goals 92-96% at this time. BiPAP to be used as needed. - Ongoing speech therapy to assess swallowing ability. 3. Encephalopathy, acute, likely present on admission, improving. - Possible ischemic brain injury given unknown length of time down before CPR - Avoid HEAD REFRIGERATION ENGINEER sedation affecting drugs - Continue physical and occupational therapy and reorientation by family and staff. - Encourage normal sleep/wake cycles. 4. Presume acute aspiration pneumonia, present on admission. - Food particles found when patient intubated. - discontinue Zosyn (day 7 of 7 day course). 5. Possible seizure activity, acute, present on admission. - Possibly secondary to anoxic brain injury. - Lorazepam drip initiated while intubated, discontinued after extubation - Continue Levetiracetam and Lacosamine for possible seizure. 6. Possible cocaine induced myocardial infarction, acute, present on admission. - Echo ordered shows EF of 40-45% with diastolic dysfunction and mid to distal anterior wall motion abnormality with septal asynchrony - Dobutamine drip discontinued - Cardiology consulted and will discuss with patient the need for possible cardiac catheterization versus repeating a limited echo and checking for resolution of the wall motion abnormality - Metoprolol XL 25 mg by mouth as patient tolerates 7. Possible lower GI bleed, acute, present on admission, improving. - Patient passed guaiac positive stool with tint of blood in CCU. - Consider ischemic colitis secondary to hypoperfusion. - Heparin drip initiated for cardiac concerns will monitor for GI bleed - Protonix 40 mg IV BID. 8. Elevated transaminases, acute, present on admission, improving. - Possibly secondary to shock liver related to hypoperfusion. May be a component of congestive hepatopathy secondary to stunned myocardium. - Continue to monitor CMP. 9. Acute kidney injury, present on admission, improving. - Presume normal baseline. - Likely secondary to fluid depletion and possibly also hypoperfusion. - Continue to monitor BMP. 10. Alcohol dependence, chronic. - Reported significant alcohol use yesterday, 11/05/16. Alcohol level negative in ED. Presumed chronic alcohol use. - Lorazepam drip used while intubated. - As patient is awake now, will monitor closely for any signs of withdrawal. As it is hospital day five, patient is likely through the worst of a withdrawal. 11. Anxiety with benzodiazepine dependence, chronic. - Home medication clonazepam 1 mg TID PRN. - Lorazepam drip utilized during intubation and stopped on 11/09/16. Will re- start clonazepam PRN. 12. Polysubstance abuse, presume chronic. - Cocaine and marijuana positive urine tox. - Frequency of use unknown. 13. Hypertension, chronic, presume stable. - Home medication includes atenolol 50 mg BID. - Patient started on metoprolol succinate 25 mg daily. Will monitor for effect. - Antiemetic available PRN. - Bowel regimen available PRN. Disposition: Patient to remain in hospital for at least 1 more day with health care social worker attempting to place the patient may rehabilitation facility given current debilitation. GI Prophylaxis: Proton Pump Inhibitor VTE Prophylaxis: Sub-Q Heparin (Unfractionated), SCDs VTE Mechanical Devices: Intermittant Pneumatic CD Resuscitation Status: CPR: Attempt Resuscitation Time spent 30 min Attending Statement The patient was seen and examined together with Dr. Diaz on 11/12/16 and I agree with the history, exam and plan as outlined in the note above. Adalid Diaz DO Nov 12, 2016 07:43 Charlene Cowan DO Nov 13, 2016 16:53
[2016-11-13] VITALS (7 sets, daily range): BP systolic 133–156; BP diastolic 88–105; PULSE 62–73; RESP 16–20; O2SAT 94–97
[2016-11-13] MEDS: Heparin 5,000 Unit/mL Inj SUBQ SCH ×3 (01:45→15:35)
--- NOTE | 2016-11-13 05:59 | NUR ---
A&O but Impulsive Pt has steady gait and is independent in room. Pt has little regard for lines at times. Noted pulling IJ line to max to get into BR rather than move IV pole. RN educated pt on possible complications of this, pt stated understanding. Pt restless in room, pacing, in and out of closet frequently. IV beeping, pt found pressing buttons on machine. Placed machine in lock out mode. This am at 0540, RN notes slight cigarette smell in BR. RN asks pt if she has been smoking, pt states that she has not. She has quit but it may be her purse because she did smoke for years. RN educated pt on hazard of smoking in hospital as well as smoking policy. Pt stated understanding.
[2016-11-13 06:07] LABS: Mean Corpuscular Hemoglobin 29.4 pg (27.0-35.0); Mean Corpuscular Volume 88.6 fL (81-100)
[2016-11-13 06:45] LABS: Magnesium 1.9 mg/dL (1.6-2.6); Phosphorus 2.9 mg/dL (2.5-4.9)
[2016-11-13] MEDS: levETIRAcetam Inj 1,500 MG in 0.9% Sodium Chloride 100 ML IV SCH ×2 (07:49→20:50)
[2016-11-13] MEDS: Pantoprazole 40 mg ER24 Tablet PO SCH ×2 (07:54→15:37)
[2016-11-13] MEDS: MeTOProlol XL 25 mg ER24 Tablet PO SCH (07:57)
--- NOTE | 2016-11-13 10:46 | NUR ---
NUTRITION FOLLOW-UP: ASSESS: 56 YO F admitted for respiratory arrest prior to arrival, intubated in the field, exhibiting PEA. Hypothermia protocol completed. Enteral feeding discontinued s/p extubation 11/09. Pt was able to have her diet advanced per ST to Heart Healthy 11/11. She has tolerated 100% x1 meal. Wt is trending back down towards admit wt. PMHx: Anxiety, HTN, polysubstance abuse. DIET: Heart Healthy, PO 100% x1. LABS: AST 56, ALT 98, Alb 3.5 MEDICATIONS: Reviewed. GI: BM x 1 (11/12). SKIN: No issues ANTHROPOMETRICS: Current Wt: 82 kg, BMI 31.0 kg/m2. Admit weight: 75.0 kg, IBW: 54.5 kg (137.5% IBW) ESTIMATED NEEDS: based off admit wt Calories: 9585-4815 kcal/day (25-30 kcal/kg BW) Protein: 75-90 g/day (1.0-1.2 g/kg BW) NUTRITION DIAGNOSIS: 1) Inadequate oral intake related to inability to consume sufficient energy, as evidenced by NPO/vent status - IMPROVING INTERVENTION: 1) Continue current diet MONITOR/EVALUATE: PO intake, labs, GI/nutrition status. Follow per high moderate risk guidelines.
[2016-11-13] MEDS: 0.9% Sodium Chloride 1,000 ML IV SCH (14:15)
--- NOTE | 2016-11-13 15:47 | NUR ---
Social Work Note:CD Assessment Current Circumstances: Kassy Curry is a 56 year old female admitted on 11/06/2016 for post cardiac arrest after she was found down. believes this was cocaine induced. SW met with pt at bedside to discuss CD hx and resources. Hx of Substance use: Pt denies any CD hx. Pt explained she tried the cocaine one time and it resulted in this hospitalization. Pt denies any other substance use. Hx of tx programs/detox: Denies. Hx of w/d symptoms: Denies. Family hx: Pt denies. Hx of sobriety and supports: N/A. Patients perception of the consequences of use: Pt explained that she is glad for what happened to her because it "woke her up." Pt explained "Life Is harinder, I have a son. I cant be trying things like that any more. My saved my life." Suicide Risk: Pt denies any current or recent SI. Pt did report a suicide attempt in 2004 after the of her father which resulted in a psychiatric hospitalization at [facility]. Pt states " I got excellent care there and I haven't felt that bad since." Pt denies that this cocaine use was a suicide attempt. Pt was accepting of the crisis line number to call if she ever feels suicidal or just depressed like she did in 2004. Motivation for tx: Pt reports not wanting to experiment with drugs anymore. Discharge Plan: Pt to discharge home via POV when medically ready. Pt was accepting of CD resources and community resources. JOSE Cheung
--- NOTE | 2016-11-13 19:27 | NUR ---
Impulsiveness Pt observed stretching IV line across the room on multiple occasions. Multiple attempts to push buttons on IV pump and one time disconnected her own line. Education provided on safety.
--- NOTE | 2016-11-13 19:50 | PCM.PNMED ---
Subjective Date of Service Nov 13, 2016 Subjective overnight: Patient continues to have difficulty with spontaneity at night, requires significant redirection including directions on moving the IV stand. Nursing reports possible smoking in the bathroom overnight. No acute events otherwise noted. Today: The patient has noted a rash on her chest as well as expirations on both her left and right abdomen. The patient states that the rash on her chest is painful to push on. She does not recall scratching her belly. The patient states that she feels like she is improving daily. Exam Vital Signs Vital Sign - Last Date Time Temp Pulse Resp B/P Pulse Ox O2 Delivery O2 Flow Rate FiO2 11/13/16 04:52 36.3 68 18 133/88 94 Room Air 11/12/16 14:00 2.00 11/11/16 12:22 40 Intake and Output 11/12/16 11/12/16 11/13/16 Cumulative From/Thru 15:00 23:00 07:00 11/06/16 12:31 - 11/13/16 06:58 Intake Total 779 ml 1647 ml 20669 ml Output Total 600 ml 1200 ml 66899 ml Balance -600 ml -421 ml 1647 ml 3712 ml Intake Oral 560 ml 300 ml 1260 ml IV Total 219 ml 1347 ml 37217 ml Tube Feeding 153 ml Tube Irrigant 320 ml Output Urine Total 600 ml 1200 ml 41889 ml Stool Total 625 ml Gastric Drainage Total 700 ml # Voids 2 2 # Bowel Movements 4 Exam Gen.: Alert Middle-aged female lying quietly in bed in no acute distress Eyes: Pupils equal round and reactive to light, anicteric sclera noninjected conjunctiva HENT: Normocephalic atraumatic, moist mucous membranes without central cyanosis , no cobblestone mucosa Neck: supple without thyromegaly, no lymphadenopathy, no JVD appreciated; Right IJ in place Cardiovascular: Regular rate and rhythm without murmur rubs or gallops Lungs: Very mild coarse breath sounds heard in the axillary bases bilaterally clear and all other lung scott, no wheezing noted Abdomen: Normoactive bowel tones with nondistended abdomen, soft, no organomegaly noted tympanic to percussion Extremities: Right femoral catheterization site without active bleeding or hematoma. Radial pulses and dorsalis pedis pulses equal bilaterally. No clubbing or edema : Sheth catheter in place Neuro: Cranial nerves appear grossly intact, voice hoarse with slowed speech, can move all extremities grossly, mild to moderate dysdiadochokinesia noted in upper extremities MSK: Strength intact bilaterally and levelman, bicep, tricep, plantar and dorsi flexion as well as knee extension. Psych: Normal mood and flat affect Skin: Irregularly shaped red maculopapular rash noted on chest. Expirations noted on abdomen both left and right sides with dried blood noted. IVs and Medications Medications Reviewed: Medications were reviewed in detail Lab and Diagnostics Result Diagram: 11/13/1655411/13/16554 Microbiology Urine culture has no growth to date. Sputum culture growing scant normal alexis. Blood culture 2 has no growth after 24 hours. MRSA screen negative. Stool occult blood positive. . X-Rays, CTs and MRIs PROCEDURE: X-RAY CHEST ONE VIEW, PORTABLE IMPRESSION: 1. The endotracheal tube is 4 cm above millicent. 2. Mild pulmonary edema. Dictated by: Carolyn Medina M.D. on 11/06/2016 at 12:38 PROCEDURE: CT BRAIN WITHOUT CONTRAST IMPRESSION: 1. No acute intracranial abnormalities. Dictated by: Carolyn Medina M.D. on 11/06/2016 at 12:17 Cardiac Echo Impressions Echocardiogram Report Interpretation Summary Normal sinus rhythm. Wide QRS complexes. Normal LV size; mild concentric LVH. There is mid-anterior, distal anterior hypokinesis and evidence of septal dyssynchrony. Otherwise normal wall motion where seen. EF is 40-45%. Normal diastolic dysfunction. Normal chamber sizes. Mitral valve leaflets are normal. There is trace mitral regurgitation. Tricuspid valve leaflets are normal; there is mild-moderate associated TR. Estimated PASP is 26 mm Hg assuming RA pressure of 5 mm Hg. No prior study available for comparison. Reading Physician:07: 15 PM Additional Diagnostics EEG IMPRESSION: This EEG performed in the lethargic state is abnormal. It is limited by abundant myogenic and movement artifact and the single lead electrocardiogram demonstrating what appears to be a wide QRS complex is abnormal. If clinically indicated, recommend obtaining a 12-lead electrocardiogram. Review of this electroencephalogram reveals no evidence of focal, lateralized, or epileptiform discharges. No seizures were seen. Clinical correlation is advised. Joseph Rivera MD 11/06/162051 DIAGNOSTIC CARDIAC CATHETERIZATION CONCLUSION: 1. Moderate disease of the left anterior descending and first diagonal branch. 2. LVEF 55%, 60%. 3. LVEDP is 17 mmHg. Antonina Vang MD 11/12/16 1311 Assessment & Plan Patient is a 56 year old female with a history of hypertension and anxiety who presented to [facility] in respiratory then cardiac arrest. She is admitted to the ICU for hypothermia protocol. Hospital day 7 1. Cardiac arrest, acute, present on admission. resolved - Given wall motion abnormalities on echo and positive tox screen this is possibly related to a cocaine induced myocardial infarction - Hypothermia protocol initiated in the ED at 1015 on 11/06/16. Patient rewarming initiated at 10 AM 11/07/2016 and concluded by 0200 on 11/08/16. - Cardiology has been consulted and we appreciate their input. - Cardiology to take patient for cardiac catheterization on 11/12/2016 - Diagnostic cardiac catheterization shows moderate coronary artery disease of the left anterior descending coronary artery as well as first diagonal, which required no percutaneous intervention - Sublingual nitroglycerin available 2. Acute hypoxic respiratory failure, present on admission. Resolved - Patient successfully extubated on 11/09/16. - Currently tolerating room air and O2 supplementation via nasal cannula. O2 goals 92-96% at this time. BiPAP to be used as needed. 3. Encephalopathy, acute, likely present on admission, improving. - Possible anoxic brain injury given unknown length of time down before CPR - Avoid PUBLIC HEALTH REPRESENTATIVE sedation affecting drugs - Continue physical and occupational therapy and reorientation by family and staff. - Encourage normal sleep/wake cycles. 4. Presume acute aspiration pneumonia, present on admission. - Food particles found when patient intubated. - Zosyn was given for 7 days total discontinued 11/12/2016 5. Possible seizure activity, acute, present on admission, stable - Possibly secondary to anoxic brain injury. - Lorazepam drip initiated while intubated, discontinued after extubation - Continue Levetiracetam and Lacosamine for possible seizure. 6. Possible cocaine induced myocardial infarction, acute, present on admission. - Echo ordered shows EF of 40-45% with diastolic dysfunction and mid to distal anterior wall motion abnormality with septal asynchrony - Dobutamine drip discontinued - Metoprolol XL 25 mg by mouth as patient tolerates - Cardiac catheterization showed no significant stenosis requiring percutaneous intervention 7. Possible lower GI bleed, acute, present on admission, resolved - Patient passed guaiac positive stool with tint of blood in CCU. - Consider ischemic colitis secondary to hypoperfusion. - Heparin drip initiated for cardiac concerns without any significant decline in hemoglobin makes bleed less likely - Protonix 40 mg IV BID. 8. Elevated transaminases, acute, present on admission, improving. - Possibly secondary to shock liver related to hypoperfusion. May be a component of congestive hepatopathy secondary to stunned myocardium. - Continue to monitor CMP. 9. Acute kidney injury, present on admission, improving. - Presume normal baseline. - Likely secondary to fluid depletion and possibly also hypoperfusion. - Continue to monitor BMP. 10. Alcohol dependence, chronic. - Reported significant alcohol use yesterday, 11/05/16. Alcohol level negative in ED. Presumed chronic alcohol use. - Lorazepam drip discontinued after extubation - Recommend outpatient counseling 11. Anxiety with benzodiazepine dependence, chronic. - Home medication clonazepam 1 mg TID PRN. - Lorazepam drip utilized during intubation and stopped on 11/09/16. - Will re-start clonazepam PRN. 12. Polysubstance abuse, presume chronic. - Cocaine and marijuana positive urine tox. - Frequency of use unknown. 13. Hypertension, chronic, presume stable. - Home medication includes atenolol 50 mg BID. - Patient started on metoprolol succinate 25 mg daily - Lisinopril 5 mg daily - Antiemetic available PRN. - Bowel regimen available PRN. Disposition: Patient to remain in hospital for at least 1 more day with clinical social work aide attempting to place the patient may rehabilitation facility given current debilitation. GI Prophylaxis: Proton Pump Inhibitor VTE Prophylaxis: Sub-Q Heparin (Unfractionated), SCDs VTE Mechanical Devices: Intermittant Pneumatic CD Resuscitation Status: CPR: Attempt Resuscitation Time spent 35 minutes Attending Statement The patient was seen and examined together with Dr. Reyes on 11/13/16 and I have added additional information to the note above. Adalid Diaz DO Nov 13, 2016 07:40 Charlene Cowan DO Nov 17, 2016 16:32
[2016-11-13] MEDS: Nystatin 100,000 Unit/Gm 15 Gm Powder TOPICAL SCH (20:51)
[2016-11-14] VITALS (13 sets, daily range): BP systolic 145–173; BP diastolic 92–114; PULSE 57–82; RESP 16–18; O2SAT 93–98
[2016-11-14] MEDS: Heparin 5,000 Unit/mL Inj SUBQ SCH ×4 (01:08→23:27)
[2016-11-14] MEDS ORDERED: MeTOProlol 1 mg/mL 5 mL Inj IVPUSH ONE (04:25)
[2016-11-14] MEDS: 0.9% Sodium Chloride 1,000 ML IV SCH (04:33)
[2016-11-14 04:53] LABS: Mean Corpuscular Hemoglobin 29.6 pg (27.0-35.0); Mean Corpuscular Volume 89.6 fL (81-100)
[2016-11-14] MEDS: MeTOProlol XL 25 mg ER24 Tablet PO SCH ×2 (05:23→20:12)
--- NOTE | 2016-11-14 06:21 | NUR ---
Mentation/BP pt A&O somewhat forgetful at beginning of shift but mental status improved over night. Pt very pleasant and cooperative, ambulating in hallway with FWW, tolerates well. Pt BP elevated in AM at 168/111, MD called and order for IV Metoprolol obtained and administered, BP improved only slightly, MD updated and order received to given AM BP meds early and to D/c IVF. Results pending.
[2016-11-14] MEDS: Nystatin 100,000 Unit/Gm 15 Gm Powder TOPICAL SCH ×2 (09:00→20:12)
[2016-11-14] MEDS: Pantoprazole 40 mg ER24 Tablet PO SCH ×2 (09:03→16:22)
[2016-11-14] MEDS: levETIRAcetam Inj 1,500 MG in 0.9% Sodium Chloride 100 ML IV SCH (09:17)
[2016-11-14] MEDS ORDERED: Ketorolac 15 mg/mL Inj IVPUSH PRN (11:40)
--- NOTE | 2016-11-14 14:52 | NUR ---
Social Work: Readiness for Discharge Data/Assessment: Pt discussed in am rounds. Pt not medically stable for discharge at this time due to rate control; anticipate pt to be ready in 1-2 days, per MD. EMR reviewed, pt was able to ambulate 200 feet CGA with FWW. Recommendation is for home with FWW. MONUMENT CARVER met with pt at bedside to discuss discharge planning. Pt states that she does not have any concerns about discharge home and states that her , Bill, has acquired a FWW for her. She states that he will transport her home when ready. MONUMENT CARVER reviewed advanced directives with pt. She states that she has not completed these. Pt willingly accepted information from MONUMENT CARVER. MONUMENT CARVER also provided pt with a connie care application as she is self-pay. Plan: Anticipate pt to discharge home via POV once medically stable; Pt has FWW. MONUMENT CARVER to continue to follow. JOSE Morales
--- NOTE | 2016-11-14 16:55 | DRSVH ---
[facility] [address] [place] [address] Echocardiogram Report Name: MALGORZATA LOO Date: 11/14/2016 Height: 64 in Hospital Exam Location: [facility] Weight: 183 lb Gender: Female BSA: 1.9 m2 : 1960 Age: 56 yrs BP: 156/103 mmHg Reason For Study: POST CARDIAC ARREST Ordering Physician: Performed By: Valentin Borrero Interpretation Summary 1. Normal left ventricular size, wall thickness and systolic function with an estimated EF of 60-65% 2. Normal right ventricular size and systolic function. 3. No evidence for valvular pathology Compared to the previous study, the LV function has improved Procedure: A limited 2D, color and Doppler echocardiogram was performed to assess left ventricular function. The study quality was technically adequate. Comparison is made with the echocardiogram of 11/06/16. The patient was in normal sinus rhythm during the exam. Left Ventricle: The left ventricle is normal in size. There is normal left ventricular wall thickness. The ejection fraction is estimated to be 60-65%. There are no focal wall motion abnormalities. Septal motion is consistent with conduction abnormality. Right Ventricle: The right ventricle is normal in size and function. Mitral Valve: The mitral valve is normal. There is trace mitral regurgitation. Aortic Valve: The aortic valve is trileaflet. The aortic valve opens well. Tricuspid Valve: The tricuspid valve leaflets are thin and pliable. There is trace tricuspid regurgitation. The right ventricular systolic pressure is estimated at 27 mmHg assuming a right atrial pressure of 3 mm Hg. Pulmonic Valve: The pulmonic valve is not well seen, but is grossly normal. Great Vessels: The aortic root is normal size. The aortic arch is at the upper limits of normal in size. MMode/2D Measurements & Calculations LVIDd: 5.1 cm LA dimension Ao root diam LV sims. diameter/BSA LVIDs: 2.6 cm (cm/m^2): 2.7 FS: 49.7 % IVC diam Aortic Jxn EPSS: 0.52 cm : 1.5 cm IVSd: 1.0 cm asc Aorta LVPWd: 1.0 cm Diam: 3.5 cm LV sys. diameter/BSA (cm/m^2): 1.4 Doppler Measurements & Calculations TR max rachael: 242.9 cm/sec TR max P.6 mmHg Reading Physician:04:54 PM
--- NOTE | 2016-11-14 17:39 | PCM.PNMED ---
Subjective Date of Service Nov 14, 2016 Subjective overnight: No acute events noted patient was hypertensive overnight and given a dose of metoprolol with improvement. Today: Patient stated that she wanted to leave AMA. It was explained to her that she had a significant illness which would be unsafe to go home today given her continued use of antiseizure medications. The patient will now be given some pain medication post cardiac catheterization given moderate coronary artery disease with low risk of myocardial infarction imminently. She states that she feels significantly better on her feet after being educated on physical therapy to walk with a wider gait. Exam Vital Signs Vital Sign - Last Date Time Temp Pulse Resp B/P Pulse Ox O2 Delivery O2 Flow Rate FiO2 11/14/16 06:18 82 11/14/16 05:08 156/103 11/14/16 04:03 36.6 18 98 Room Air 11/12/16 14:00 2.00 11/11/16 12:22 40 Intake and Output 11/13/16 11/13/16 11/14/16 Cumulative From/Thru 15:00 23:00 07:00 11/06/16 12:31 - 11/14/16 06:46 Intake Total 2149 ml 1621 ml 11316 ml Output Total 1200 ml 00306 ml Balance 949 ml 1621 ml 6282 ml Intake Oral 920 ml 800 ml 2980 ml IV Total 1229 ml 821 ml 30944 ml Tube Feeding 153 ml Tube Irrigant 320 ml Output Urine Total 1200 ml 87037 ml Stool Total 625 ml Gastric Drainage Total 700 ml # Voids 4 4 10 # Bowel Movements 4 Exam Gen.: Alert Middle-aged female sitting quietly in bed in no acute distress Eyes: Pupils equal round and reactive to light, anicteric sclera noninjected conjunctiva HENT: Normocephalic atraumatic, moist mucous membranes without central cyanosis , no cobblestone mucosa Neck: supple without thyromegaly, no lymphadenopathy, no JVD appreciated; Right IJ in place Cardiovascular: Regular rate and rhythm without murmur rubs or gallops Lungs: Clear breath sounds bilaterally in all lung scott without any wheezing rales or rhonchi Abdomen: Normoactive bowel tones with nondistended abdomen, soft, no organomegaly noted tympanic to percussion Extremities: Right femoral catheterization site without active bleeding or hematoma. Radial pulses and dorsalis pedis pulses equal bilaterally. No clubbing or edema Neuro: Cranial nerves appear grossly intact, notable improvement in speech with improved vocabulary and more normal speed and tone MSK: Strength intact bilaterally and fitter welder, biceps, triceps, plantar and dorsi flexion as well as knee extension. Psych: Normal mood and flat affect Skin: Irregularly shaped red maculopapular rash noted on chest. Expirations noted on abdomen both left and right sides with dried blood noted. no Sheth in place IVs and Medications Medications Reviewed: Medications were reviewed in detail Lab and Diagnostics Result Diagram: 11/14/16 0440 11/14/16 0440 Microbiology Urine culture has no growth to date. Sputum culture growing scant normal alexis. Blood culture 2 has no growth after 24 hours. MRSA screen negative. Stool occult blood positive. . X-Rays, CTs and MRIs PROCEDURE: X-RAY CHEST ONE VIEW, PORTABLE IMPRESSION: 1. The endotracheal tube is 4 cm above millicent. 2. Mild pulmonary edema. Dictated by: Carolyn Medina M.D. on 11/06/2016 at 12:38 PROCEDURE: CT BRAIN WITHOUT CONTRAST IMPRESSION: 1. No acute intracranial abnormalities. Dictated by: Carolyn Medina M.D. on 11/06/2016 at 12:17 Cardiac Echo Impressions Echocardiogram Report Interpretation Summary Normal sinus rhythm. Wide QRS complexes. Normal LV size; mild concentric LVH. There is mid-anterior, distal anterior hypokinesis and evidence of septal dyssynchrony. Otherwise normal wall motion where seen. EF is 40-45%. Normal diastolic dysfunction. Normal chamber sizes. Mitral valve leaflets are normal. There is trace mitral regurgitation. Tricuspid valve leaflets are normal; there is mild-moderate associated TR. Estimated PASP is 26 mm Hg assuming RA pressure of 5 mm Hg. No prior study available for comparison. Reading Physician:07: 15 PM Additional Diagnostics EEG IMPRESSION: This EEG performed in the lethargic state is abnormal. It is limited by abundant myogenic and movement artifact and the single lead electrocardiogram demonstrating what appears to be a wide QRS complex is abnormal. If clinically indicated, recommend obtaining a 12-lead electrocardiogram. Review of this electroencephalogram reveals no evidence of focal, lateralized, or epileptiform discharges. No seizures were seen. Clinical correlation is advised. Joseph Rivera MD 11/06/162051 DIAGNOSTIC CARDIAC CATHETERIZATION CONCLUSION: 1. Moderate disease of the left anterior descending and first diagonal branch. 2. LVEF 55%, 60%. 3. LVEDP is 17 mmHg. Antonina Vang MD 11/12/16 1311 Assessment & Plan Patient is a 56 year old female with a history of hypertension and anxiety who presented to [facility] in respiratory then cardiac arrest. She is admitted to the ICU for hypothermia protocol. Hospital day 8 1. Encephalopathy, acute, likely present on admission, improving. - Possible anoxic brain injury given unknown length of time down before CPR - Avoid ACCOUNTANT HELPER sedation affecting drugs and lives at patient's use of clonazepam if possible - Continue physical and occupational therapy and reorientation by family and staff. - Encourage normal sleep/wake cycles. 2. Elevated transaminases, acute, present on admission, improving. - Possibly secondary to shock liver related to hypoperfusion. May be a component of congestive hepatopathy secondary to stunned myocardium. - avoid Tylenol and other hepatotoxic drugs - Continue to monitor CMP 3. Polysubstance abuse, chronic, present on admission - Cardiac arrest likely secondary to cocaine-induced myocardial infarction - Patient also tested positive in the in ED for marijuana and benzodiazepines likely clonazepam - Avoid addictive medications like narcotics - Social work to help with placement 4. Alcohol dependence, present on admission, chronic. - Reported significant alcohol use yesterday, 11/05/16. Alcohol level negative in ED. Presumed chronic alcohol use. - Lorazepam drip discontinued after extubation - Recommend outpatient counseling 5. Anxiety with benzodiazepine dependence, chronic. - Home medication clonazepam 1 mg TID PRN. - Lorazepam drip utilized during intubation and stopped on 11/09/16. - Will re-start clonazepam PRN. 6. Hypertension, chronic, presume stable. - Home medication includes atenolol 50 mg BID. - metoprolol succinate 25 mg twice a day - Lisinopril 20 mg daily, after patient remained hypertensive on both 5 mg with an additional 10 mg on November 14 7. Cardiac arrest, acute, present on admission. resolved - Given wall motion abnormalities on echo and positive tox screen this is possibly related to a cocaine induced myocardial infarction - Hypothermia protocol initiated in the ED at 1015 on 11/06/16. Patient rewarming initiated at 10 AM 11/07/2016 and concluded by 0200 on 11/08/16. - Cardiology has been consulted and we appreciate their input. - Cardiology to take patient for cardiac catheterization on 11/12/2016 which showed moderate coronary artery disease of the left anterior descending coronary artery as well as first diagonal, which required no percutaneous intervention - Tramadol given for chest pain associated with CPR 8. Possible cocaine induced myocardial infarction, acute, present on admission, resolved - Echo ordered shows EF of 40-45% with diastolic dysfunction and mid to distal anterior wall motion abnormality with septal asynchrony - Dobutamine drip discontinued - Metoprolol XL 25 mg twice a day - Lisinopril 20 mg daily - Cardiac catheterization showed no significant stenosis requiring percutaneous intervention - Repeat echo 11/14/16 with reading pending 9. Acute hypoxic respiratory failure, present on admission. Resolved - Patient successfully extubated on 11/09/16. - Currently tolerating room air and O2 supplementation via nasal cannula. O2 goals 92-96% at this time. BiPAP to be used as needed. 10. Presume acute aspiration pneumonia, present on admission, resolved - Food particles found when patient intubated. - Zosyn was given for 7 days total discontinued 11/12/2016 11. Possible seizure activity, acute, present on admission, stable resolved - Possibly secondary to anoxic brain injury. - Lorazepam drip initiated while intubated, discontinued after extubation - Discontinue Levetiracetam and Lacosamine for possible seizure 3:30 12. Possible lower GI bleed, acute, present on admission, resolved - Patient passed guaiac positive stool with tint of blood in CCU. - Consider ischemic colitis secondary to hypoperfusion. - Heparin drip initiated for cardiac concerns without any significant decline in hemoglobin makes bleed less likely - Discontinue Protonix 40 mg IV BID. 13. Acute kidney injury, present on admission, resolved - Presume normal baseline. - Likely secondary to fluid depletion and possibly also hypoperfusion. - Continue to monitor BMP. - Antiemetic available PRN. - Bowel regimen available PRN. Disposition: Patient to remain in hospital for at least 1 more day with health care social worker attempting to place the patient may rehabilitation facility given current debilitation. GI Prophylaxis: Not indicated VTE Prophylaxis: Sub-Q Heparin (Unfractionated), SCDs VTE Mechanical Devices: Intermittant Pneumatic CD Resuscitation Status: CPR: Attempt Resuscitation Time spent 35 minutes Attending Statement The patient was seen and examined together with on 11/14/16 and I agree with the history, exam and plan as outlined in the note above. Adalid Diaz DO Nov 14, 2016 07:56 Charlene Cowan DO Nov 17, 2016 16:39
--- NOTE | 2016-11-14 19:19 | NUR ---
Pain/Anxiety/IV status Pt had an echo this afternoon that resulted in her crying and wanting to leave. Tramadol added to plan of care Q4. Somewhat effective. Also receiving Clonazipam PRN TID, also somewhat effective. Currently resting in bed and appears comfortable. IJ IV removed this shift. approved pt to have no IV line at this point.
[2016-11-15] MEDS ORDERED: MeTOProlol 1 mg/mL 5 mL Inj IVPUSH ONE (00:20)
[2016-11-15 03:28] VITALS: BP 141/90; PULSE 70; RESP 16; O2SAT 93
[2016-11-15 03:39] LABS: BASOPHILS % (AUTO) 0.6 % (0-3); EOSINOPHILS % (AUTO) 5.5 % (0-5); MONOCYTES % (AUTO) 9.1 % (4-12); Mean Corpuscular Hemoglobin 30.1 pg (27.0-35.0); Mean Corpuscular Volume 90.1 fL (81-100); NEUTROPHILS % (AUTO) 49.5 % (40-74); Platelet Count 224 bil/L (150-400)
--- NOTE | 2016-11-15 05:44 | NUR ---
Mentation / Vital Signs Pt AOx3; wandered halls at beginning of shift and found outside by security attempting to smoke. Pt aware of smoking policy as well as policy for patients remaining on floor; pt states "I don't know why I did it. I took one bergman of it, and it just made me sick. I thought, 'This is going to kill me.'" Hospital policies reiterated to pt, pt verbalized understanding. reports pt was "anticipating his visit and was coming outside to greet him." Pt emotionally labile with episodes of crying and/or seriousness. No remaining smoking paraphernalia to observation. At approx. 2330, pt BP increased to 170/110; pupils appeared dilated and eyes glassy; affect changed from serious to playful and joking with staff, motor activity appeared slightly uncoordinated. MD nunes, pt refused assessment and BP treatment. BP spontaneously resolved after period of rest. Pt reports feeling stressed over temporary hospital lockdown announced over PA. Vital signs otherwise stable, tele SR 80s. Sitter at bedside for observation.
[2016-11-15 08:00] VITALS: PULSE 73
[2016-11-15 08:47] VITALS: BP 158/101; PULSE 71; RESP 20; O2SAT 94
[2016-11-15] MEDS: MeTOProlol XL 25 mg ER24 Tablet PO SCH (08:53)
[2016-11-15] MEDS: Heparin 5,000 Unit/mL Inj SUBQ SCH (08:54)
[2016-11-15] MEDS: Nystatin 100,000 Unit/Gm 15 Gm Powder TOPICAL SCH (08:54)
--- NOTE | 2016-11-15 10:55 | NUR ---
Social Work: Discharge D: Pt discussed in am rounds. Pt is medically stable for discharge. Pt was found overnight smoking the the parking lot and redirected to come back to her room. Per RN notes, pt is emotionally labile, with periods of crying and seriousness. HEAVY DUTY CUSTODIAN met with pt at bedside to confirm discharge plan. Pt expresses kiran that she is being discharged. She confirms her will be transporting her home. Pt confirmed that she has a FWW and has OPPT resources. Pt states she lost her connie care application and community CD/MH resources previously provided by HEAVY DUTY CUSTODIAN. HEAVY DUTY CUSTODIAN provided pt with additional copies and encouraged pt to follow up with outpatient treatment. Pt declines any other needs and is eager to leave. A: Pt who is from home with her spouse an I. P: Pt to discharge home today via POV. JOSE Morales
[2016-11-15] MEDS ORDERED: METO25TA6 PO (11:13)
[2016-11-15] MEDS ORDERED: LISI-567 PO (11:13)
[2016-11-15] MEDS ORDERED: TRAM50TA2 PO (11:13)
[2016-11-15] MEDS ORDERED: HYDR25TA4 PO (11:13)
[2016-11-15] MEDS ORDERED: LOVA20TA PO (11:13)
--- NOTE | 2016-11-15 11:39 | PCM.DIMED ---
Adalid Diaz DO 11/15/16 1139: Discharge Instructions Date of Service Nov 15, 2016 Dates of Hospitalization Nov 06, 2016 at 13:49 Discharge Diagnosis Discharge Diagnosis 1. Cardiac arrest 2. likely cocaine induced myocardial infarction 3. Acute hypoxic respiratory failure 4. Presume acute aspiration pneumonia 5. Anoxic Encephalopathy 6. Elevated transaminases 7. Polysubstance abuse 8. Anxiety with benzodiazepine dependence 9. Hypertension 10. Possible seizure activity 11. Acute kidney injury Medication Instructions You will now be sent home with several new medications for your heart health. These new medications will control both your blood pressure as well as your cholesterol. Knowing that cost is a concern these medications have all been checked and are available on the $4 monthly prescription list at [facility]. Other pharmacies like [facility] and [facility] will likely charge significantly more. Please apple picking supervisor these prescriptions and take them all as directed. Metoprolol tartrate 25 mg twice a day Lisinopril 40 mg taken at night Hydrochlorothiazide 25 mg taken in the morning Lovastatin 20 mg taken at night If you notice lightheadedness upon standing, please have your blood pressure checked and if your systolic blood pressure (top number) is below 100, please drink more fluids and skip your next dose of hydrochlorothiazide. You will also be sent with a short prescription for a pain relieving medication given your recent CPR. Tramadol 50 mg every 4 hours as needed for pain. Please consider decreasing the amount of clonazepam that you take daily. This medication will interact with tramadol causing sedation. Do not drink or drive on tramadol. Test Results DIAGNOSTIC CARDIAC CATHETERIZATION CONCLUSION: 1. Moderate disease of the left anterior descending and first diagonal branch. 2. Left ventricular ejection fraction 55% - 60%. 3. Left ventricular end diastolic pressure is 17 mmHg. Performed by Manager Balance Antonina Vang MD 11/12/16 Echocardiogram Report Interpretation Summary 1. Normal left ventricular size, wall thickness and systolic function with an estimated EF of 60-65% 2. Normal right ventricular size and systolic function. 3. No evidence for valvular pathology Compared to the previous study, the LV function has improved Reading Physician:04:54 PM Diet Heart Healthy Activity Other (please do not overdo physical activity, be safe, get plenty of rest and moderate exercise) Call your provider Fever or Chills, Shortness of breath, Bleeding, Chest pain, Vomitting, Other ( lightheadedness or dizziness upon standing or low blood pressure or low heart rate) Patient Instructions You must avoid all smoke including no tobacco smoke and no marijuana smoke in the future. All smoke is harmful for your heart health. You must avoid all recreational drug use in the future including no cocaine, marijuana, heroin, or methamphetamines. Please make better decisions in the future regarding your health. Please limit your use of prescribed benzodiazepines in the future as these medications are not considered appropriate for long-term use. Please limit your use of alcohol in the future. Medical literature indicates that alcohol must be kept to less than 2 drinks a day for females. Given your elevated liver enzymes (transaminases) it is very important to avoid excessive use of alcohol or binge drinking and specifically excess use of Tylenol. Please get plenty of rest and exercise. Do not try and overdo your physical exertion over the next few weeks as you regained your strength and physical function. Follow-up plan We understand that you are in between primary care physicians at this point in time. Please try and arrange a new primary care physician in [facility] at your earliest possible convenience. You have stated that you have no problem with being seen at the [facility] residency clinic near the [facility] location. An appointment will be scheduled for you hopefully within the next week to be seen for a hospital follow-up appointment where vital signs temperature and labs can be drawn to confirm improving health status. The [facility] residency clinic scheduling team is attempting to find a open appointment time for the week after discharge. You should be contacted with an appointment confirmation time however if you do not hear about a scheduled appointment by November 18 please call the [facility] residency clinic to confirm. Follow-up Provider: [facility] Residency Clinic Follow-up with PCP in: 1 week Charlene Cowan DO 11/16/16 1437: Discharge Instructions Attending's Statement The patient was seen and examined together with Dr. Lundberg on 11/15/16 and I agree with the history, exam and plan as outlined in the note above. Adalid Diaz DO Nov 15, 2016 11:39 Charlene Cowan DO Nov 16, 2016 14:37
--- NOTE | 2016-11-15 13:14 | NUR ---
Discharge Pt. was discharged at ~1240 from room [facility]. Pt. took all her belongings and was given educational material on new prescriptions metoprolol, lisinopril, hydrochlorothiazide, lovastatin, and tramadol. Pt. was also given educational booklet of heart attack for reason of admission status to hospital. Pt. was instructed to follow up with litigation counsel Dr. Alford on 12/26/16 at 2:45 in [facility] and follow up with residency clinic next week and the office of the clinic would call the Pt. due to scheduling issues. Pt. was encouraged to stop all recreational drug use, limit alcohol intake, and to get plenty of rest and to not overdue it. Pt. states she understood. Pt. had no IV to take out and right groin surgical incision site had no dressing, small dried up blood where the incision was made was noted. No pain on palpation, nor when ambulating, soft on palpation and no bruising noted around site. Pt. was taken down in wheel chair my nursing attendant in wheel chair.
--- NOTE | 2016-11-15 15:09 | PCM.PNMED ---
Subjective Date of Service Nov 15, 2016 Subjective overnight: Patient continues to be mildly appropriate overnight reportedly going outside to smoke a cigarette. The patient was instructed that this was against hospital policy at which point she apologized. No other acute events overnight. Today: Patient states that she is ready to go home. 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 She understands that she must avoid recreational drug use as well as smoking tobacco or marijuana in the future. She understands the requirement to be on blood pressure lowering medicine as well as cholesterol-lowering medicine given her recent cardiac event. The patient has no other questions at this time. Exam Vital Signs Vital Sign - Last Date Time Temp Pulse Resp B/P Pulse Ox O2 Delivery O2 Flow Rate FiO2 11/15/16 03:28 36.7 70 16 141/90 93 Room Air 11/12/16 14:00 2.00 11/11/16 12:22 40 Intake and Output 11/14/16 11/14/16 11/15/16 Cumulative From/Thru 15:00 23:00 07:00 11/06/16 12:31 - 11/15/16 05:51 Intake Total 1100 ml 600 ml 75910 ml Output Total 2000 ml 07009 ml Balance 1100 ml -1400 ml 5982 ml Intake Oral 1100 ml 600 ml 4680 ml IV Total 70709 ml Tube Feeding 153 ml Tube Irrigant 320 ml Output Urine Total 2000 ml 87431 ml Stool Total 625 ml Gastric Drainage Total 700 ml # Voids 5 4 19 # Bowel Movements 2 0 6 Exam Gen.: Alert Middle-aged female sitting quietly in bed in no acute distress Eyes: Pupils equal round and reactive to light, anicteric sclera noninjected conjunctiva HENT: Normocephalic atraumatic, moist mucous membranes without central cyanosis , no cobblestone mucosa Neck: supple without thyromegaly, no lymphadenopathy, no JVD appreciated Cardiovascular: Regular rate and rhythm without murmur rubs or gallops Lungs: Mild coarse breath sounds sounds in the right lower lung scott with clear auscultation in in all other lung scott without any wheezing noted Abdomen: Normoactive bowel tones with nondistended abdomen, soft, no organomegaly noted tympanic to percussion Extremities: Right femoral catheterization site without discharge or erythema. Radial pulses and dorsalis pedis pulses equal bilaterally. 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 Psych: Normal mood and flat affect Skin: Irregularly shaped red maculopapular rash noted on chest. healing excoriations noted on abdomen both left and right sides with dried blood noted. no Sheth in place IVs and Medications Medications Reviewed: Medications were reviewed in detail Lab and Diagnostics Result Diagram: 11/15/16 0325 11/15/16 032 Microbiology Urine culture has no growth to date. Sputum culture growing scant normal alexis. Blood culture 2 has no growth after 24 hours. MRSA screen negative. Stool occult blood positive. . X-Rays, CTs and MRIs PROCEDURE: X-RAY CHEST ONE VIEW, PORTABLE IMPRESSION: 1. The endotracheal tube is 4 cm above millicent. 2. Mild pulmonary edema. Dictated by: Carolyn Medina M.D. on 11/06/2016 at 12:38 PROCEDURE: CT BRAIN WITHOUT CONTRAST IMPRESSION: 1. No acute intracranial abnormalities. Dictated by: Carolyn Medina M.D. on 11/06/2016 at 12:17 Cardiac Echo Impressions Echocardiogram Report Interpretation Summary Normal sinus rhythm. Wide QRS complexes. Normal LV size; mild concentric LVH. There is mid-anterior, distal anterior hypokinesis and evidence of septal dyssynchrony. Otherwise normal wall motion where seen. EF is 40-45%. Normal diastolic dysfunction. Normal chamber sizes. Mitral valve leaflets are normal. There is trace mitral regurgitation. Tricuspid valve leaflets are normal; there is mild-moderate associated TR. Estimated PASP is 26 mm Hg assuming RA pressure of 5 mm Hg. No prior study available for comparison. Reading Physician:07: 15 PM Echocardiogram Report Interpretation Summary 1. Normal left ventricular size, wall thickness and systolic function with an estimated EF of 60-65% 2. Normal right ventricular size and systolic function. 3. No evidence for valvular pathology Compared to the previous study, the LV function has improved Reading Physician:04:54 PM Additional Diagnostics EEG IMPRESSION: This EEG performed in the lethargic state is abnormal. It is limited by abundant myogenic and movement artifact and the single lead electrocardiogram demonstrating what appears to be a wide QRS complex is abnormal. If clinically indicated, recommend obtaining a 12-lead electrocardiogram. Review of this electroencephalogram reveals no evidence of focal, lateralized, or epileptiform discharges. No seizures were seen. Clinical correlation is advised. Joseph Rivera MD 11/06/162051 DIAGNOSTIC CARDIAC CATHETERIZATION CONCLUSION: 1. Moderate disease of the left anterior descending and first diagonal branch. 2. LVEF 55%, 60%. 3. LVEDP is 17 mmHg. Antonina Vang MD 11/12/16 1311 Assessment & Plan Patient is a 56 year old female with a history of hypertension and anxiety who presented to [facility] in respiratory then cardiac arrest. She is admitted to the ICU for hypothermia protocol. Hospital day 8 1. Encephalopathy, acute, likely present on admission, improving. - Possible anoxic brain injury given unknown length of time down before CPR - Avoid [employer] OPERATOR sedation affecting drugs and lives at patient's use of clonazepam if possible - Continue physical and occupational therapy and reorientation by family and staff. - Encourage normal sleep/wake cycles. 2. Elevated transaminases, acute, present on admission, improving. - Possibly secondary to shock liver related to hypoperfusion. May be a component of congestive hepatopathy secondary to stunned myocardium. - avoid Tylenol and other hepatotoxic drugs 3. Polysubstance abuse, chronic, present on admission - Cardiac arrest likely secondary to cocaine-induced myocardial infarction - Patient also tested positive in the in ED for marijuana and benzodiazepines likely clonazepam - Avoid addictive medications like narcotics 4. Alcohol dependence, present on admission, chronic. - Reported significant alcohol use yesterday, 11/05/16. Alcohol level negative in ED. Presumed chronic alcohol use. - Lorazepam drip discontinued after extubation - Recommend outpatient counseling 5. Anxiety with benzodiazepine dependence, chronic. - Home medication clonazepam 1 mg TID PRN. - Lorazepam drip utilized during intubation and stopped on 11/09/16. - Will re-start clonazepam PRN. 6. Hypertension, chronic, presume stable. - Home medication includes atenolol 50 mg BID. - Blood pressure medications started slow during hospitalization given normotensive - metoprolol tartrate 25 mg twice a day - Lisinopril 40 mg taken at night - Hydrochlorothiazide 25 mg taken in the morning 7. Cardiac arrest, acute, present on admission. resolved - Given wall motion abnormalities on echo and positive tox screen this is possibly related to a cocaine induced myocardial infarction - Hypothermia protocol initiated in the ED at 1015 on 11/06/16. Patient rewarming initiated at 10 AM 11/07/2016 and concluded by 0200 on 11/08/16. - Cardiology was consulted and we appreciate their input. - Cardiology to take patient for cardiac catheterization on 11/12/2016 which showed moderate coronary artery disease of the left anterior descending coronary artery as well as first diagonal, which required no percutaneous intervention - Tramadol given for chest pain associated with CPR - Antihypertensive medications started as described above - Patient discharged on Lovenox 20 mg daily given mild transaminitis with moderate coronary artery disease, liver enzymesrechecked as an outpatient 8. Possible cocaine induced myocardial infarction, acute, present on admission, resolved - Echo ordered shows EF of 40-45% with diastolic dysfunction and mid to distal anterior wall motion abnormality with septal asynchrony - Dobutamine drip discontinued early in hospitalization with improved blood pressures - Metoprolol XL 25 mg twice a day - Lisinopril 20 mg daily - Cardiac catheterization showed no significant stenosis requiring percutaneous intervention - Repeat echo 11/14/16 showed significantly improved EF approximately 60% 9. Acute hypoxic respiratory failure, present on admission. Resolved - Patient successfully extubated on 11/09/16. - Currently tolerating room air and O2 supplementation via nasal cannula. O2 goals 92-96% at this time. 10. Presume acute aspiration pneumonia, present on admission, resolved - Food particles found when patient intubated. - Zosyn was given for 7 days total discontinued 11/12/2016 11. Possible seizure activity, acute, present on admission, stable resolved - Possibly secondary to anoxic brain injury. - Lorazepam drip initiated while intubated, discontinued after extubation - Discontinue Levetiracetam and Lacosamine for possible seizure 3:30 12. Possible lower GI bleed, acute, present on admission, resolved - Patient passed guaiac positive stool with tint of blood in CCU. - Consider ischemic colitis secondary to hypoperfusion. - Heparin drip initiated for cardiac concerns without any significant decline in hemoglobin makes bleed less likely - Discontinue Protonix 40 mg IV BID. 13. Acute kidney injury, present on admission, resolved - Presume normal baseline. - Likely secondary to fluid depletion and possibly also hypoperfusion. - Continue to monitor BMP. - Antiemetic available PRN. - Bowel regimen available PRN. Disposition: Patient to be discharged today GI Prophylaxis: Not indicated VTE Prophylaxis: Sub-Q Heparin (Unfractionated), SCDs VTE Mechanical Devices: Intermittant Pneumatic CD Resuscitation Status: CPR: Attempt Resuscitation Time spent 35 minutes Attending Statement The patient was seen and examined together with Dr. Reyes on 11/15/16 and I agree with the history, exam and plan as outlined in the note above. Adalid Diaz DO Nov 15, 2016 08:06 Charlene Cowan DO Nov 17, 2016 16:40
--- NOTE | 2016-11-15 15:14 | PCM.DC.MED ---
Discharge Summary Date of Service Nov 15, 2016 Dates of Hospitalization Date of Hospital Admission Nov 06, 2016 at 13:49 Date of Discharge: Nov 15, 2016 Providers: Admitting Physician: Osmany Schroeder MD Primary Care Physician: Nopcp Attending Physician: Osmany Schroeder MD Diagnosis at Time of Discharge Diagnosis at Time of Discharge 1. Cardiac arrest 2. likely cocaine induced myocardial infarction 3. Acute hypoxic respiratory failure 4. Presume acute aspiration pneumonia 5. Anoxic Encephalopathy 6. Elevated transaminases 7. Polysubstance abuse 8. Anxiety with benzodiazepine dependence 9. Hypertension 10. Possible seizure activity 11. Acute kidney injury Consultations Pulmonary/critical care Cardiology Neurology to read the EEG Procedures XRay, CTs & MRIs PROCEDURE: X-RAY CHEST ONE VIEW, PORTABLE IMPRESSION: 1. The endotracheal tube is 4 cm above millicent. 2. Mild pulmonary edema. Dictated by: Carolyn Medina M.D. on 11/06/2016 at 12:38 PROCEDURE: CT BRAIN WITHOUT CONTRAST IMPRESSION: 1. No acute intracranial abnormalities. Dictated by: Carolyn Medina M.D. on 11/06/2016 at 12:17 Cardiac Echo Impression Echocardiogram Report Interpretation Summary Normal sinus rhythm. Wide QRS complexes. Normal LV size; mild concentric LVH. There is mid-anterior, distal anterior hypokinesis and evidence of septal dyssynchrony. Otherwise normal wall motion where seen. EF is 40-45%. Normal diastolic dysfunction. Normal chamber sizes. Mitral valve leaflets are normal. There is trace mitral regurgitation. Tricuspid valve leaflets are normal; there is mild-moderate associated TR. Estimated PASP is 26 mm Hg assuming RA pressure of 5 mm Hg. No prior study available for comparison. Reading Physician:07: 15 PM Echocardiogram Report Interpretation Summary 1. Normal left ventricular size, wall thickness and systolic function with an estimated EF of 60-65% 2. Normal right ventricular size and systolic function. 3. No evidence for valvular pathology Compared to the previous study, the LV function has improved Reading Physician:04:54 PM Other Diagnostics EEG IMPRESSION: This EEG performed in the lethargic state is abnormal. It is limited by abundant myogenic and movement artifact and the single lead electrocardiogram demonstrating what appears to be a wide QRS complex is abnormal. If clinically indicated, recommend obtaining a 12-lead electrocardiogram. Review of this electroencephalogram reveals no evidence of focal, lateralized, or epileptiform discharges. No seizures were seen. Clinical correlation is advised. Joseph Rivera MD 11/06/162051 DIAGNOSTIC CARDIAC CATHETERIZATION CONCLUSION: 1. Moderate disease of the left anterior descending and first diagonal branch. 2. LVEF 55%, 60%. 3. LVEDP is 17 mmHg. Antonina Vang MD 11/12/16 1311 Brief History From the H&P of by Nancie Del Cid DO "At the time of this H&P patient is intubated and sedated and cannot provide any history. History per the ED note by Dr. Yost: Pt is a 56 y/o female with unknown PMHx presenting to the ED via EMS due to respiratory arrest prior to arrival. The patient and her woke up sometime between 04:00-05:00 today and apparently had a hot flash. Her headed out to smoke and came back up to 5 hours later to find her unresponsive and apneic (the timeline is obtained from medics and drastically different stories may cause it to be inaccurate, another medic reported 10 minutes of downtime). She told her that she was complaining of back pain and may have taken some of her Percocet. They drank heavily last night. Medics noticed no signs of trauma. Upon medics arrival, she was exhibiting PEA. CPR was initiated prior to medics arrival and was sustained for about 15 minutes until reperfusion. She was then intubated, sedated, and paralyzed on route at about 11 :30 as well as given Narcan. During the intubation, they retrieved food material from the airway. Vital signs have remained stable. No further history is available. Only medical record available indicates a suicide attempt in 2008." Hospital Course Patient is a 56 year old female with a history of hypertension and anxiety who presented to [facility] in respiratory then cardiac arrest. She is admitted to the ICU for hypothermia protocol. Hospital day 8 Patient was successfully extubated after 3 days of intubation. The patient remained anxious and had labile blood pressures with systolic blood pressures of 170s and diastolic blood pressure in the 1 teens. The patient's blood pressure medication was changed to metoprolol 25 mg twice a day, lisinopril 40 mg daily at bedtime, hydrochlorothiazide 25 mg in the morning. This seemed to help decrease the patient's blood pressures into more stable ranges. Patient was highly encouraged follow-up with her primary care provider within the next week for blood pressure follow-up. The patient was highly encouraged to continue in the ingestion of alcohol or illicit drugs. The patient stated that she understood and would even quit smoking. 1. Encephalopathy, acute, likely present on admission, improving. 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 - Encourage normal sleep/wake cycles. 2. Elevated transaminases, acute, present on admission, improving. - Possibly secondary to shock liver related to hypoperfusion. May be a component of congestive hepatopathy secondary to stunned myocardium. - avoid Tylenol and other hepatotoxic drugs 3. Polysubstance abuse, chronic, present on admission - Cardiac arrest likely secondary to cocaine-induced myocardial infarction - Patient also tested positive in the in ED for marijuana and benzodiazepines likely clonazepam - Avoid addictive medications like narcotics 4. Alcohol dependence, present on admission, chronic. - Reported significant alcohol use yesterday, 11/05/16. Alcohol level negative in ED. Presumed chronic alcohol use. - Lorazepam drip discontinued after extubation - Recommend outpatient counseling 5. Anxiety with benzodiazepine dependence, present on admission chronic. - Home medication clonazepam 1 mg TID PRN. - Lorazepam drip utilized during intubation and stopped on 11/09/16. - Will re-start clonazepam PRN. 6. Hypertension, present on admission chronic, stable. - Home medication includes atenolol 50 mg BID this was changed to metoprolol tartrate 25mg BID for cost reasons - Blood pressure medications started slow during hospitalization given normotensive - Lisinopril 40 mg taken at night - Hydrochlorothiazide 25 mg taken in the morning 7. Cardiac arrest, acute, present on admission. resolved - Given wall motion abnormalities on echo and positive tox screen this is possibly related to a cocaine induced myocardial infarction - Hypothermia protocol initiated in the ED at 1015 on 11/06/16. Patient rewarming initiated at 10 AM 11/07/2016 and concluded by 0200 on 11/08/16. - Cardiology was consulted and we appreciate their input. - Cardiology to take patient for cardiac catheterization on 11/12/2016 which showed moderate coronary artery disease of the left anterior descending coronary artery as well as first diagonal, which required no percutaneous intervention - Tramadol given for chest pain associated with CPR - Antihypertensive medications started as described above - Patient discharged on Lovenox 20 mg daily given mild transaminitis with moderate coronary artery disease, liver enzymesrechecked as an outpatient 8. Possible cocaine induced myocardial infarction, acute, present on admission, resolved - Echo ordered shows EF of 40-45% with diastolic dysfunction and mid to distal anterior wall motion abnormality with septal asynchrony - Dobutamine drip discontinued early in hospitalization with improved blood pressures - Metoprolol XL 25 mg twice a day - Lisinopril 20 mg daily - Cardiac catheterization showed no significant stenosis requiring percutaneous intervention - Repeat echo 11/14/16 showed significantly improved EF approximately 60% 9. Acute hypoxic respiratory failure, present on admission. Resolved - Patient successfully extubated on 11/09/16. - Currently tolerating room air and O2 supplementation via nasal cannula. O2 goals 92-96% at this time. 10. Presume acute aspiration pneumonia, present on admission, resolved - Food particles found when patient intubated. - Zosyn was given for 7 days total discontinued 11/12/2016 11. Possible seizure activity, acute, present on admission, stable resolved - Possibly secondary to anoxic brain injury. - Lorazepam drip initiated while intubated, discontinued after extubation - Discontinue Levetiracetam and Lacosamine for possible seizure 3:30 12. Possible lower GI bleed, acute, present on admission, resolved - Patient passed guaiac positive stool with tint of blood in CCU. - Consider ischemic colitis secondary to hypoperfusion. - Heparin drip initiated for cardiac concerns without any significant decline in hemoglobin makes bleed less likely - Discontinue Protonix 40 mg IV BID. 13. Acute kidney injury, present on admission, resolved - Presume normal baseline. - Likely secondary to fluid depletion and possibly also hypoperfusion. - Continue to monitor BMP. - Antiemetic available PRN. - Bowel regimen available PRN. Exam Vital Signs (Last) Date Time Temp Pulse Resp B/P Pulse Ox O2 Delivery O2 Flow Rate FiO2 11/15/16 08:50 Supplement Oxygen 11/15/16 08:47 36.9 71 20 158/101 94 11/12/16 14:00 2.00 11/11/16 12:22 40 Exam Gen.: Alert Middle-aged female sitting quietly in bed in no acute distress Eyes: Pupils equal round and reactive to light, anicteric sclera noninjected conjunctiva HENT: Normocephalic atraumatic, moist mucous membranes without central cyanosis , no cobblestone mucosa Neck: supple without thyromegaly, no lymphadenopathy, no JVD appreciated Cardiovascular: Regular rate and rhythm without murmur rubs or gallops Lungs: Mild coarse breath sounds sounds in the right lower lung scott with clear auscultation in all other lung scott without any wheezing noted Abdomen: Normoactive bowel tones with nondistended abdomen, soft, no organomegaly noted tympanic to percussion Extremities: Right femoral catheterization site without discharge or erythema. Radial pulses and dorsalis pedis pulses equal bilaterally. 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 Psych: Normal mood and flat affect Skin: Irregularly shaped red maculopapular rash noted on chest. healing excoriations noted on abdomen both left and right sides with dried blood noted. no Sheth in place Test 11/06/16 12:25 11/06/16 12:30 11/06/16 12:55 11/06/16 14:20 Urine Color Yellow (YELLOW) Urine Appearance Hazy (CLEAR,HAZY) Urine pH 5.5 (5.0-8.0) Urine Specific [place] 1.030 (1.003-1.035) Urine Protein 100mg/dL (NEG,TRACE) Urine Glucose (UA) Negativemg/dL (NEGATIVE) Urine Ketones Negativemg/dL (NEGATIVE) Urine Occult Blood Small (NEGATIVE) Urine Nitrite Negative (NEGATIVE) Urine Bilirubin Negative (NEGATIVE) Urine Urobilinogen Normalmg/dL (NORMAL) Urine Leukocyte Esterase Negative (NEGATIVE) Urine RBC 0-2/hpf (0-2) Urine WBC 0-5/hpf (0-5) Urine Epithelial Cells Occasional/hpf (NONE-MOD) Urine Crystals Amorphous urates (NONE Urine Bacteria Moderate/hpf (NONE-FEW) Urine Hyaline Casts Occasional/lpf (NONE) Urine Granular Casts Occasional (NONE SEEN) Urine Waxy Casts None seen (NONE SEEN) Urine Red Blood Cell Casts None seen (NONE SEEN) Urine White Blood Cell Casts None seen (NONE SEEN) Urine Mucus Present (None Seen) Urine Trichomonas None seen (NONE SEEN) Urine Yeast None (NONE SEEN) Urinalysis Comment None Urine Culture Reflexed Indicated Salicylates Level < 3.0ug/mL (30-250) Acetaminophen Level < 15.0ug/mL Rx (10-25) Alcohols < 10mg/dL (0-10) D-Dimer 56.4mg/L (<0.50) Hold Purple Top Tube Received (Received) Hold Blue Top Tube Received (Received) Hold Weare Top Tube Received (Received) Test 11/07/16 03:30 11/07/16 14:45 11/07/16 23:14 11/08/16 05:40 Ionized Calcium (Calculated) 3.72mg/dL (3.5-5.2) Total Creatine Kinase 97U/L (21-215) Creatine Kinase MB 7.2ng/mL (0.0-5.3) Creatine Kinase MB % 7.4% (0.0-5.0) Troponin T 0.024ug/L (0.0-0.011) Hold [place] Top Tube Received (Received) Erythrocyte Sedimentation Rate 9mm/hr (0-40) C-Reactive Protein 8.7mg/dL (0.0-0.5) Test 11/08/16 12:40 11/11/16 04:56 11/12/16 04:30 11/12/16 11:15 Lactic Acid Level 1.7mmol/L (0.4-2.0) Triglycerides Level 164mg/dL (0-149) Cholesterol Level 146mg/dL (100-199) LDL Cholesterol, Calculated 81.200mg/dL (0-99) VLDL Cholesterol 32.800mg/dL HDL Cholesterol 32mg/dL (>39) Cholesterol/HDL Ratio 4.56 (0.0-4.4) Prothrombin Time 11.0sec (8.1-12.5) Prothromb Time International Ratio 1.03ratio Activated Partial Thromboplast Time 46.0sec (22.8-33.0) Test 11/13/16 05:55 11/13/16 13:34 11/15/16 03:25 Phosphorus Level 2.9mg/dL (2.5-4.9) Magnesium Level 1.9mg/dL (1.6-2.6) Pro-B-Type Natriuretic Peptide 1801pg/mL (0-287) Procalcitonin 0.20ng/mL (0.00-0.08) Hepatitis C Antibody <0.1s/co ratio (0.0-0.9) HIV (1&2) Ag and Ab, 4th Generation Non reactive (Non Reactive) White Blood Count 8.8th/mm3 (3.8-10.1) Red Blood Count 3.42mil/mm3 (3.90-5.20) Hemoglobin 10.3g/dL (12.0-15.6) Hematocrit 30.8% (35.0-46.0) Mean Corpuscular Volume 90.1fL (81-100) Mean Corpuscular Hemoglobin 30.1pg (27.0-35.0) Mean Corpuscular Hemoglobin Concent 33.4% (32.0-37.0) Red Cell Distribution Width 13.5% (12.3-15.4) Platelet Count 224bil/L (150-400) Neutrophils (%) (Auto) 49.5% (40-74) Lymphocytes (%) (Auto) 34.5% (14-46) Monocytes (%) (Auto) 9.1% (4-12) Eosinophils (%) (Auto) 5.5% (0-5) Basophils (%) (Auto) 0.6% (0-3) Sodium Level 141mEq/L (134-144) Potassium Level 4.1mEq/L (3.5-5.2) Chloride Level 105mEq/L (97-108) Carbon Dioxide Level 24mmol/L (18-29) Blood Urea Nitrogen 12mg/dL (6-24) Creatinine 0.89mg/dL (0.57-1.00) Estimat Glomerular Filtration Rate 94mL/min (>59) Glucose Level 95mg/dL (60-99) Calcium Level 9.3mg/dL (8.5-10.1) Total Bilirubin 0.3mg/dL (0.0-1.2) Aspartate Amino Transf (AST/SGOT) 29U/L (0-50) Alanine Aminotransferase (ALT/SGPT) 65U/L (0-32) Alkaline Phosphatase 77U/L (25-150) Total Protein 5.9g/dL (6.4-8.4) Albumin 3.5g/dL (3.4-5.0) Microbiology Results Urine culture has no growth to date. Sputum culture growing scant normal alexis. Blood culture 2 has no growth after 24 hours. MRSA screen negative. Stool occult blood positive. . Discharge Medications Discharge Medications Hydrochlorothiazide (Hydrochlorothiazide) 25 Mg Tablet 25 MG PO DAILY Prescribed by: ADALID MCCRAY, Lisinopril (Lisinopril) 20 Mg Tablet 40 MG PO HS Prescribed by: ADALID MCCRAY, DO Lovastatin (Lovastatin) 20 Mg Tablet 20 MG PO HS Prescribed by: ADALID MCCRAY, DO Metoprolol Tartrate (Metoprolol Tartrate) 25 Mg Tablet 25 MG PO BID Prescribed by: ADALID MCCRAY, DO As needed Clonazepam (Clonazepam) 1 Mg Tablet 1 MG PO TID PRN PRN For Anxiety or Agitation (Reported) Temazepam (Temazepam) 30 Mg Cap 30 MG PO HS PRN PRN Insomnia (Reported) Tramadol (Tramadol) 50 Mg Tablet 50 MG PO Q4H PRN PRN For Pain Prescribed by: ADALID MCCRAY, DO Additional med instructions You will now be sent home with several new medications for your heart health. These new medications will control both your blood pressure as well as your cholesterol. Knowing that cost is a concern these medications have all been checked and are available on the $4 monthly prescription list at [facility]. Other pharmacies like [facility] and [facility] will likely charge significantly more. Please cloth picker these prescriptions and take them all as directed. Metoprolol tartrate 25 mg twice a day Lisinopril 40 mg taken at night Hydrochlorothiazide 25 mg taken in the morning Lovastatin 20 mg taken at night If you notice lightheadedness upon standing, please have your blood pressure checked and if your systolic blood pressure (top number) is below 100, please drink more fluids and skip your next dose of hydrochlorothiazide. You will also be sent with a short prescription for a pain relieving medication given your recent CPR. Tramadol 50 mg every 4 hours as needed for pain. Please consider decreasing the amount of clonazepam that you take daily. This medication will interact with tramadol causing sedation. Do not drink or drive on tramadol. Followup Plan Disposition: Home Follow-up plan We understand that you are in between primary care physicians at this point in time. Please try and arrange a new primary care physician in [facility] at your earliest possible convenience. You have stated that you have no problem with being seen at the [facility] residency clinic near the [facility] location. An appointment will be scheduled for you hopefully within the next week to be seen for a hospital follow-up appointment where vital signs temperature and labs can be drawn to confirm improving health status. The [facility] residency clinic scheduling team is attempting to find a open appointment time for the week after discharge. You should be contacted with an appointment confirmation time however if you do not hear about a scheduled appointment by Friday, November 18 please call the [facility] residency clinic to confirm. Discharge Diet: Heart Healthy Discharge Activity: Other (please do not overdo physical activity, be safe, get plenty of rest and moderate exercise) Patient Instructions You must avoid all smoke including no tobacco smoke and no marijuana smoke in the future. All smoke is harmful for your heart health. You must avoid all recreational drug use in the future including no cocaine, marijuana, heroin, or methamphetamines. Please make better decisions in the future regarding your health. Please limit your use of prescribed benzodiazepines in the future as these medications are not considered appropriate for long-term use. Please limit your use of alcohol in the future. Medical literature indicates that alcohol must be kept to less than 2 drinks a day for females. Given your elevated liver enzymes (transaminases) it is very important to avoid excessive use of alcohol or binge drinking and specifically excess use of Tylenol. Please get plenty of rest and exercise. Do not try and overdo your physical exertion over the next few weeks as you regained your strength and physical function. Follow-up Provider: [facility] Follow-up with PCP in: 1 week Time spent Greater than 35 minutes Attending Statement The patient was seen and examined together with Dr. Reyes on 11/15/2016 and I have added additional information to the note above. copies to: [facility] Adalid Mccray DO Nov 15, 2016 15:12 Charlene Cowan DO Nov 16, 2016 14:57
== END 2016-11-15 12:35 | disposition home or self-care (01) | DRG 280 ==
LOC: EDBD 11:49 → EDUNIT# 11:49 → SED 11:49 → CCU 13:49 → PCC 11-11 08:00
PROVIDERS: ADMIT Internal Medicine; ATTEND Internal Medicine
PROC: 5A1945Z Respiratory Ventilation, 24-96 Consecutive Hours (ICD-10-PCS; principal; 2016-11-06)
PROC: 4A033R1 Measurement of Arterial Saturation, Peripheral, Percutaneous Approach (ICD-10-PCS; 2016-11-06)
PROC: 03HY32Z Insertion of Monitoring Device into Upper Artery, Percutaneous Approach (ICD-10-PCS; 2016-11-06)
PROC: 4A023N7 Measurement of Cardiac Sampling and Pressure, Left Heart, Percutaneous Approach (ICD-10-PCS; 2016-11-12)
PROC: B2111ZZ Fluoroscopy of Multiple Coronary Arteries using Low Osmolar Contrast (ICD-10-PCS; 2016-11-12)
DX: I46.8 Cardiac arrest due to other underlying condition (principal); J96.01 Acute respiratory failure with hypoxia; I21.3 ST elevation (STEMI) myocardial infarction of unspecified site; J69.0 Pneumonitis due to inhalation of food and vomit; G93.40 Encephalopathy, unspecified; N17.9 Acute kidney failure, unspecified; K92.2 Gastrointestinal hemorrhage, unspecified; F10.20 Alcohol dependence, uncomplicated; F17.210 Nicotine dependence, cigarettes, uncomplicated; F41.9 Anxiety disorder, unspecified; I10 Essential (primary) hypertension; E87.5 Hyperkalemia; R68.0 Hypothermia, not associated with low environmental temperature; I48.0 Paroxysmal atrial fibrillation; F14.988 Cocaine use, unspecified with other cocaine-induced disorder; I25.10 Atherosclerotic heart disease of native coronary artery without angina pectoris; R56.9 Unspecified convulsions